=== PATIENT | male | born 1985 | race Caucasian/White ===

== ENCOUNTER 2020-02-14 16:31 | Emergency (ER) | payer OTHER, SELFPAY ==
[2020-02-14 16:43] VITALS: BP 113/70; PULSE 77; RESP 20; TEMP 36.7; O2SAT 99
--- NOTE | 2020-02-14 16:53 | ED.SKABFB ---
HPI - Skin/Abscess/Foreign Bdy General Chief complaint: Skin/Abscess/Foreign Body Stated complaint: abrasion right leg History of Present Illness HPI narrative: This is a 34 year old male that was [place] on [place] police [place] and he started to get bitten up. His leg has continue to slightly itch but erythema and swelling of leg and there were several open area. Patient has been having leg wrapped up and it has continued to get moist and boggy . Related Data Allergies Allergy/AdvReac Type Severity Reaction Status Date / Time No Known Allergies Allergy Unverified 02/14/20 16:48 Review of Systems Review of Systems: Narrative: CONSTITUTIONAL: Denies fever, chills, or sweats. EYES: Denies visual changes, redness, or discharge. ENT: Denies rhinorrhea, congestion, sore throat, or otalgia. CARDIOVASCULAR:Denies chest pain, palpitations, or edema. RESPIRATORY: Denies cough or dyspnea. GASTROINTESTINAL: Denies abdominal pain, nausea, vomiting, or diarrhea. GENITOURINARY: Denies dysuria or hematuria. SKIN: Reports rash or itching. MUSCULOSKELETAL:Denies back pain, joint pain, or myalgia. NEUROLOGIC: Denies headache, numbness, or weakness. PSYCHIATRIC:Denies anxiety or depression PMFSH Social History Social History Smoking status: Never smoker Alcohol intake: never Comments At time as signature, I have reviewed and agree with nursing past medical, social, surgical and family history. Please see nursing chart for further information. There is no relevant family history pertinent to the presenting complaint. Exam Narrative: Exam Narrative: GENERAL:Well-appearing, well-nourished, and in no acute distress. HEAD:Normocephalic, atraumatic. EYES: PERRLA and EOMI. ENT: Nares clear, no rhinorrhea or epistaxis. Mucous membranes moist. NECK: Supple. CHEST: Clear to auscultation. No respiratory distress. HEART: Regular rate and rhythm. No murmur heard. Normal peripheral pulses. ABDOMEN: Soft, nontender, nondistended, normal active bowel sounds. EXTREMITIES: Normal range of motion. No edema. SKIN: Warm, dry, erythema with edema open areas with some excoriation on the lower leg right slightly warm to touch rash. NEURO: No focal deficits. Alert and oriented x3. Course Vital Signs Vital signs: Vital Signs Temperature 98.1 F 02/14/20 16:43 Pulse Rate 77 02/14/20 16:43 Respiratory Rate 20 02/14/20 16:43 Blood Pressure 113/70 02/14/20 16:43 Pulse Oximetry 99 02/14/20 16:43 Temperature 98.1 F 02/14/20 16:43 Pulse Rate 77 02/14/20 16:43 Respiratory Rate 20 02/14/20 16:43 Blood Pressure 113/70 02/14/20 16:43 Pulse Oximetry 99 02/14/20 16:43 Discharge Plan Discharge Clinical Impression: Skin excoriation Insect bites Qualifiers: Encounter type: initial encounter Site of insect bite: lower leg Laterality: right Qualified Code(s): S80.861A - Insect bite (nonvenomous), right lower leg, initial encounter Cellulitis Qualifiers: Site of cellulitis: extremity Site of cellulitis of extremity: lower extremity Laterality: right Qualified Code(s): L03.115 - Cellulitis of right lower limb Patient Disposition: Home, Self-Care Condition: Stable Instructions: Antibiotic Form, Insect Bite or Sting (ED), Acute Rash (ED), Acute Wounds (ED) Prescriptions: New prednisone 10 mg tablet 10 mg PO DAILY 5 Days Qty: 15 RF: 0 cephalexin [Keflex] 500 mg capsule 500 mg PO Q12H 10 Days Qty: 20 RF: 0 silver sulfadiazine [Silvadene] 1 % cream 1 applic TOPICAL BID Qty: 50 RF: 0 Follow-up/Referrals: Timi Washington MD [Primary Care Provider] - Time of Disposition: 17:00 Discharge Date/Time: 02/14/20 17:08
== END 2020-02-14 17:08 | disposition home or self-care (01) ==
PROVIDERS: Emergency Provider Nurse Practitioner Family; PCP Family Medicine
DX: S80.811A Abrasion, right lower leg, initial encounter (principal); L03.115 Cellulitis of right lower limb; X58.XXXA Exposure to other specified factors, initial encounter; S80.861A Insect bite (nonvenomous), right lower leg, initial encounter; W57.XXXA Bitten or stung by nonvenomous insect and other nonvenomous arthropods, initial encounter
CPT/HCPCS: 99213; G0463

== ENCOUNTER 2020-10-24 15:59 | Inpatient (IN) | payer OTHER, SELFPAY ==
[2020-10-24] VITALS (8 sets, daily range): BP systolic 149–170; BP diastolic 72–89; PULSE 75–83; RESP 16–18; TEMP 36.4–37.2; O2SAT 99–100; BMI 32.5
--- NOTE | ~2020-10-24 | US_ITS ---
EXAMINATION: US renal BI EXAM DATE: 10/25/2020 11:44 INDICATION: Acute kidney insufficiency. TECHNIQUE: Multiple grayscale and Doppler images of the kidneys were obtained (by a technologist who performed the scan) and subsequently reviewed. There is no prior study for comparison. FINDINGS: Right kidney: There is normal contour and mildly increased echogenicity. It measures 13.0 x 6.4 x 5. 5 centimeters. There are no focal renal lesions identified. There is no hydronephrosis. Left kidney: There is normal contour and mildly increased echogenicity. It measures 12.9 x 6.9 x 6.6 centimeters. There are no focal renal lesions identified. There is no hydronephrosis. Patient voided prior to examination, bladder was not distended or evaluated. IMPRESSION: 1. Mildly increased renal cortical echogenicity could indicate early medical renal disease. 2. No hydronephrosis. Reviewed, dictated and finalized at location A. IMPRESSION: 1. Mildly increased renal cortical echogenicity could indicate early medical r enal disease. 2. No hydronephrosis.
--- NOTE | ~2020-10-24 | US_ITS ---
EXAMINATION: US abdomen limited EXAM DATE: 10/25/2020 11:45 INDICATION: Elevated liver function tests. TECHNIQUE: Multiple grayscale and Doppler images of the abdomen right upper quadrant were obtained (b y a technologist who performed the scan) and subsequently reviewed. There is no prior study for lillie collazo. FINDINGS: The pancreatic head and body are normal in appearance. The pancreatic tail is not visualized. The l iver has normal echogenicity and contour. There are no focal liver lesions identified. There is no evidence of intrahepatic biliary duct dilation. Portal venous flow was seen in the hepatopedal, nor mal direction and has normal Doppler waveform. No right-sided hydronephrosis. Common bile duct measures 3 mm, which is normal. The gallbladder wall is normal in thickness, with ex pected amount of distention. No sonographic evidence of pericholecystic fluid. There is no cholelit hiases. Technologist performing exam reports patient did not demonstrate sonographic Brooks's sign. Please note that this sign is less reliable in patients who have received pain medication. IMPRESSION: Unremarkable abdominal ultrasound exam. Reviewed, dictated and finalized at location A.
--- NOTE | ~2020-10-24 | XR_ITS ---
EXAMINATION: XR chest port-a-cath/central DATE: 11/04/2020 10:04 INDICATION: Right dialysis catheter exchange TECHNIQUE: frontal view of the chest was obtained. COMPARISON: Chest radiograph dated 10/28/2020 FINDINGS: Looks change of a prior right internal jugular central venous catheter with a new tunneled large-bore dual-lumen right internal jugular central venous catheter with distal tip at the caudal superior gisele a cava. Lungs are clear with no focal airspace opacities, pulmonary edema, pleural effusion or pneumo thorax. The cardiomediastinal silhouette is normal. Visualized bones and soft tissues are unremarkabl e. IMPRESSION: 1. New tunneled large-bore dual-lumen right internal jugular central venous catheter with distal tip in the caudal superior vena cava. 2. No acute cardiopulmonary disease. Reviewed, dictated and finalized at location A. IMPRESSION: 1. New tunneled large-bore dual-lumen right internal jugular central venous cat heter with distal tip in the caudal superior vena cava. 2. No acute cardiopulmonary disease.
--- NOTE | ~2020-10-24 | US_ITS ---
EXAMINATION: US venous doppler [facility] DATE: 10/24/2020 18:21 INDICATION: Lower limb pain and swelling TECHNIQUE: Grayscale ultrasound images without and with compression and Doppler ultrasound images of the bilateral lower extremity veins were obtained. COMPARISON: None. FINDINGS: The visualized portions of right common femoral vein, profunda (deep) femoral vein, femoral vein, pop liteal vein, posterior tibial veins, peroneal veins, gastrocnemius vein and greater saphenous vein ou tflow are patent. The visualized portions of left common femoral vein, profunda femoral vein, femoral vein, popliteal v ein, posterior tibial veins, peroneal veins, gastrocnemius vein and greater saphenous vein outflow ar e patent. IMPRESSION: 1. No deep venous thrombosis in either lower limb. Reviewed, dictated and finalized at location A.
--- NOTE | ~2020-10-24 | XR_ITS ---
EXAMINATION: XR chest 1V portable INDICATION: Temporary dialysis catheter placement TECHNIQUE: Portable AP chest at 1027 hours COMPARISON: 10/27/2020 FINDINGS: A large bore right internal jugular catheter has been inserted which ends with its tip in t he right atrium. Cardiomegaly is noted. There is a mild diffuse interstitial pattern. No pleural effu magi or pneumothorax is identified. IMPRESSION: 1. Right internal jugular dialysis catheter insertion without pneumothorax. 2. Cardiomegaly with mild pulmonary edema. Reviewed, dictated and finalized at location A.
--- NOTE | ~2020-10-24 | XR_ITS ---
EXAMINATION: XR fl guide central line place DATE: 11/04/2020 09:42 INDICATION: Right-sided dialysis catheter exchange TECHNIQUE: 2 fluoroscopic images of the upper chest were obtained during procedure performed by Dr. Celia russ. Radiologist was not present for the imaging or procedure. The amount of fluoroscopy time used during this procedure was 1.0 minutes. COMPARISON: 10/28/2020 FINDINGS: Images demonstrate interval removal of the prior right internal jugular central venous catheter and p lacement of a new large bore dual lumen tunneled right internal jugular central venous catheter with distal tip at the caudal superior vena cava. Visualized portions of the lungs are clear. IMPRESSION: 1. New large bore dual lumen tunneled right internal jugular central venous catheter with distal tip at the caudal superior vena cava. See procedure report for further detail. Reviewed, dictated and finalized at location A. IMPRESSION: 1. New large bore dual lumen tunneled right internal jugular central venous cat heter with distal tip at the caudal superior vena cava. See procedure report fo r further detail.
--- NOTE | ~2020-10-24 | XR_ITS ---
XR chest 1V portable DATE: 10/27/2020 05:56 INDICATION: Acute kidney insufficiency TECHNIQUE: Portable AP chest on 10/27/2020 at 0541 hours COMPARISON: None FINDINGS: There is mild pulmonary vascular congestion and redistribution. There is mild patchy infiltrate or atelectasis in the right lower lung. No pleural effusion or pneumo thorax. Heart size is likely within normal range considering magnification associated with AP project ion. Included skeletal structures are unremarkable. IMPRESSION: Mild pulmonary vascular congestion Mild patchy infiltrate or atelectasis in right lower lung Reviewed, dictated and finalized at location A.
[2020-10-24 16:29] LABS: Basophils Percent Auto 0.2 % (0.2-1.2); Eosinophils Absolute Auto 0.1 K/mm3 (0-0.3); Eosinophils Percent Auto 0.7 % (0-4.4); Hematocrit 38.5 % (42.0-52.0); Hemoglobin 13.9 g/dL (14.0-18.0); Immature Granulocyte Absolute 0.07 K/mm3 (0.00-0.031); Immature Granulocyte Percent A 0.5 % (0-0.5); Lymphocytes Absolute Auto 1.17 K/mm3 (0.9-3.2); Lymphocytes Percent Auto 8.6 % (18.3-44.2); Mean Corpuscular HGB Conc 36.1 g/dl (32-36); Mean Corpuscular Hemoglobin 31.2 pg (26-34); Mean Corpuscular Volume 86.3 fl (80-100); Mean Platelet Volume 9.4 fl (7.4-10.4); Monocytes Absolute Auto 1.3 K/mm3 (0.1-0.6); Monocytes Percent Auto 9.6 % (2.6-8.5); Neutrophils Absolute Auto 10.9 K/mm3 (1.3-6.7); Neutrophils Percent Auto 80.4 % (45.5-73.1); Platelet Count Result 201 k/mm3 (150-375); Red Blood Count 4.46 M/mm3 (4.6-6.20); Red Cell Distribution Width 11.8 % (11.5-14.5); White Blood Count 13.6 K/mm3 (4.5-10.0)
[2020-10-24 16:39] LABS: Add Urine Microscopic? YES; Appearance Urine Cloudy (Clear); Bacteria Urine Trace /hpf; Bilirubin Urine Negative (Negative); Blood Urine 3+ (Negative); Color Urine Amber (Yellow); Glucose Urine UA 1+ mg/dL (Negative); Ketones Urine Negative (Negative); Leukocyte Esterase Ur Trace LEU/UL (Negative); Mucus Urine Rare /lpf; Nitrate Urine Negative (Negative); Protein Urine 3+ mg/dL (Negative); Specific Grav Ur 1.017 (1.001-1.035); Squamous Epithelial Cell Urine Rare /hpf (Few); Urobilinogen Urine Negative mg/dL (<2.0)
[2020-10-24 16:43] LABS: Alkaline Phosphatase 36 U/L (38-126); Anion Gap 11 mmol/L (8-16); Bilirubin,Total 0.9 mg/dL (0.2-1.3); Blood Urea Nitrogen 57 mg/dL (9-20); Calcium 7.2 mg/dL (8.4-10.2); Carbon Dioxide 24 mmol/L (22-30); Chloride 82 mmol/L (98-107); Glucose 106 mg/dL (75-110); Potassium 4.1 mmol/L (3.4-5.0); Sodium 117 mmol/L (137-145)
[2020-10-24 16:52] LABS: Estimated CRCL calculation 17 ml/min; Estimated Glomerular Filt Rate 8
[2020-10-24 17:06] LABS: Creatine Kinase > 16000 U/L (55-170)
[2020-10-24 17:07] LABS: Alanine Aminotransferase 1150 U/L (4-50); Aspartate Amino Transferase 3557 U/L (17-59)
[2020-10-24] MEDS: LACTATED RINGERS 1,000 ML 999 ML IV CONT (17:35)
--- NOTE | 2020-10-24 18:07 | ED.GENADULT ---
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 This involved doing a lot of pretty vigorous exercise outside including basically a lot of hiking/running/obstacle courses some of which was done while carrying a heavy pack and wearing tactical gear After completing these exercises the next day he felt achy all over and had decreased amount of urine output which was very dark in color and because of that he has been drinking a lot of water and reports more of a normal color now The pain he has is still present but at this time mostly confined to his legs and he also notes swelling to the legs He tried to use some kind of yoga or kinesiology roller on the muscle pains but only got bruising along his right thigh as a result He does not have other symptoms such as nausea vomiting diarrhea or constipation although his appetite is poor, no confusion headaches or neurologic symptoms Related Data Home Medications Medication Instructions Recorded Confirmed No Home Medications 10/24/20 10/24/20 Allergies Allergy/AdvReac Type Severity Reaction Status Date / Time No Known Allergies Allergy Unverified 10/24/20 17:07 Review of Systems Review of Systems: All systems reviewed & are unremarkable except as noted in HPI and below Constitutional: Constitutional: Reports no additional constitutional complaints, Reports body ache(s), Denies chills, Reports fatigue, Denies fever(s), Denies headache(s), Reports poor appetite and Reports weakness Eyes: Eyes: Reports no additional eye complaints and Denies change in vision ENT: Denies headache(s) and Denies sore throat Cardiovascular: Cardiovascular: Denies chest pain and Denies dyspnea Respiratory: Respiratory: Denies cough and Denies dyspnea Gastrointestinal: Gastrointestinal: Denies abdominal pain, Denies diarrhea and Denies vomiting Genitourinary: Genitourinary: Reports oliguria, Denies dysuria and Denies urinary frequency Comments: Dark urine Musculoskeletal: Musculoskeletal: Reports back pain, Reports myalgias, Denies deformity, Reports arthralgias, Reports joint swelling, Reports muscle cramps, Denies numbness and Reports stiffness Integumentary/Breasts: Skin/Breast: Denies rash and Denies wounds Neurologic: Denies headache(s), Denies focal weakness and Denies numbness Psychiatric: Psychiatric: Reports no additional psychiatric complaints Endocrine: Endocrine: Reports no additional endocrine complaints Hematologic/Lymphatic: Hematologic/Lymphatic: Reports no additional hematologic/lymphatic complaints Allergic/Immunologic: Allergic/Immunologic: Reports no additional allergic/immunologic complaints [facility] Social History Social History Smoking status: Never smoker Alcohol intake: never Gender identity (if verbalized by the patient): Male Exam Const: General: cooperative, healthy appearing and no acute distress Orientation/consciousness: patient oriented x3 (alert) HENMT: Head: normal to inspection, normocephalic and atraumatic Ears: external ears normal General nose exam: no epistaxis Eyes: Conjunctivae: conjunctivae normal EOM: EOMs intact bilaterally Neck: Neck: normal visual inspection, supple and no JVD Resp: Effort & Inspection: normal respiratory effort and not labored Auscultation: clear to auscultation bilaterally, no rales, no rhonchi and no wheezes Cardio: Rate: regular rate Rhythm: regular rhythm Heart sounds: no murmurs GI: GI Palp: Yes Soft to palpation and No Tenderness to palpation present (GI) B
[2020-10-24] MEDS: SODIUM CHLORIDE 0.9% IV 1,000 ML 75 ML IV CONT (19:06)
--- NOTE | 2020-10-24 19:19 | ADMGEN ---
This patient, Tashi Fink, was admitted to Medical Room 257-01. Patient/family oriented to hospital policies and general routines including ID bracelet, bed and alarms, visiting hours, pain management, procedures, bathroom and other care routines, personal items, smoking policy, room service/diet, and visiting hours. Information on how to activate the Rapid Response Team has been discussed. Patient/Family are encouraged to report perceived risks to care and to ask questions if they do not understand what they are told or what they should do.
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
[2020-10-24 22:31] LABS: Creatinine Urine 245.4 mg/dL
[2020-10-24 23:11] LABS: Potassium Urine Random 24.5 meq/L; Sodium Urine Random 34 meq/L
[2020-10-24 23:35] LABS: INR 1.1; Prothrombin Time 14.4 Seconds (11.1-14.7)
[2020-10-24 23:37] LABS: Partial Thromboplastin Time 30.4 SECONDS (22.3-36.8)
[2020-10-25] VITALS (9 sets, daily range): BP systolic 131–141; BP diastolic 67–76; PULSE 69–91; RESP 14–16; TEMP 36.2–37.1; O2SAT 99–100
[2020-10-25 00:09] LABS: Albumin Level 3.4 g/dL (3.5-5.1); Alkaline Phosphatase 31 U/L (38-126); Anion Gap 10 mmol/L (8-16); Bilirubin,Total 0.8 mg/dL (0.2-1.3); Blood Urea Nitrogen 61 mg/dL (9-20); Calcium 6.6 mg/dL (8.4-10.2); Carbon Dioxide 21 mmol/L (22-30); Chloride 85 mmol/L (98-107); Glucose 100 mg/dL (75-110); Magnesium 2.2 mg/dL (1.6-2.3); Phosphorus 5.8 mg/dL (2.5-4.5); Sodium 116 mmol/L (137-145)
[2020-10-25 00:31] LABS: Estimated CRCL calculation 17 ml/min; Estimated Glomerular Filt Rate 8
[2020-10-25 00:43] LABS: Aspartate Amino Transferase 2897 U/L (17-59)
[2020-10-25 00:44] LABS: Alanine Aminotransferase 1018 U/L (4-50)
[2020-10-25 02:01] LABS: Creatine Kinase > 16000 U/L (55-170)
[2020-10-25] MEDS: ACETAMINOPHEN 325 MG TABLET 650 MG PO ×3 (02:11→17:37)
[2020-10-25 03:38] LABS: Eosinophil Urine None Seen % (None Seen)
[2020-10-25 05:45] LABS: Albumin Level 3.4 g/dL (3.5-5.1); Alkaline Phosphatase 32 U/L (38-126); Anion Gap 9 mmol/L (8-16); Bilirubin Indirect 0.8 mg/dL (0-1.1); Bilirubin,Total 0.7 mg/dL (0.2-1.3); Blood Urea Nitrogen 60 mg/dL (9-20); Calcium 6.2 mg/dL (8.4-10.2); Carbon Dioxide 23 mmol/L (22-30); Chloride 84 mmol/L (98-107); Glucose 100 mg/dL (75-110); Magnesium 2.2 mg/dL (1.6-2.3); Phosphorus 6.2 mg/dL (2.5-4.5); Potassium 4.1 mmol/L (3.4-5.0); Sodium 116 mmol/L (137-145)
[2020-10-25 05:53] LABS: Alanine Aminotransferase 972 U/L (4-50)
[2020-10-25 06:19] LABS: Aspartate Amino Transferase 2953 U/L (17-59); Creatine Kinase > 16000 U/L (55-170)
[2020-10-25 06:26] LABS: Hepatitis B Surface Antigen Negative (Negative)
[2020-10-25 06:32] LABS: HAV RESULT Negative (Negative); Hepatitis B Core IgM Result Negative (Negative)
[2020-10-25 06:36] LABS: Estimated CRCL calculation 15 ml/min; Estimated Glomerular Filt Rate 7
[2020-10-25 06:43] LABS: Hepatitis C Virus Antibody Negative (Negative)
[2020-10-25] MEDS: SODIUM CHLORIDE 0.9% IV 1,000 ML 75 ML IV CONT ×2 (06:56→07:50)
[2020-10-25] MEDS: FUROSEMIDE INJ 40 MG/4 ML VIAL IV PUSH (06:57)
--- NOTE | 2020-10-25 08:00 | PC.NURSE ---
Teri PONCE called specifications writer to reports she did call the critical sodium level to Dr. Horner this Am, and she received the order for lasix IV Push. Kyler Addison RN
[2020-10-25 10:50] LABS: Hematocrit 32.8 % (42.0-52.0); Hemoglobin 12.2 g/dL (14.0-18.0)
[2020-10-25 11:04] LABS: Anion Gap 8 mmol/L (8-16); Blood Urea Nitrogen 66 mg/dL (9-20); Calcium 6.1 mg/dL (8.4-10.2); Carbon Dioxide 22 mmol/L (22-30); Chloride 85 mmol/L (98-107); Glucose 96 mg/dL (75-110); Potassium 4.4 mmol/L (3.4-5.0); Sodium 115 mmol/L (137-145)
[2020-10-25 11:09] LABS: Estimated CRCL calculation 15 ml/min; Estimated Glomerular Filt Rate 7
--- NOTE | 2020-10-25 12:11 | PM.CNNEP ---
Assessment and Plan Assessment and plan (1) Acute kidney failure: Code(s): N17.9 - Acute kidney failure, unspecified Status: Acute Assessment and Plan: presumably due to rhabdomyolsis along with prerenal factors renal ultrasound pending urine electrolytes suggest pre-renal azotemia no critical electrolytes (aside from #2) but will need to follow K+, Ca++, and phosphorus closely - surprising that K+, Ca++, and phos not worse continue normal saline IVF with ongoing attempts at force diuresis follow serial labs and UOP (2) Hyponatremia: Code(s): E87.1 - Hypo-osmolality and hyponatremia Status: Acute Assessment and Plan: likely precipitated by excessive water intake complicated now by SHARI/ARF associated with oliguria no neurological sequelae at this time follow repeat labs could consider 3% saline but hesitant to do with SHARI/oliguria which would put him at risk for volume overload follow serial sodium - stable but no significant improvement noted (3) Rhabdomyolysis: Code(s): M62.82 - Rhabdomyolysis Status: Acute Assessment and Plan: as noted by CPK levels follow trend continue saline IVF for now could use bicarb fluids - however, may not get adequate resuscitation - no evidence of acidosis at this time - may worsen his calcium level and predispose him to hypokalemia follow UOP (4) Elevated LFTs: Code(s): R79.89 - Other specified abnormal findings of blood chemistry Status: Acute Assessment and Plan: presumably related to #3 is it possible his BP dropped as well leading to this and #1(?) hepatitis studies noted follow trend follow-up on abdominal ultrasound Long and extensive discussion (> 20 minutes) with patient and at bedside regarding above issues and plan care. Discussed also the possible need for renal replacement therapy if conservative therapy fail to improve his kidney function or if he runs into problems with hyperkalemia, hypocalcemia, fluid overload, uremia...etc. They appeared to voice understanding. Will continue to follow. History of Present Illness Reason for Consult Consult date: 10/25/20 Reason for consult: acute renal failure and hyponatremia Chief Complaint Chief complaint: rhaddomyolysis, acute kidney failure, hyponatremia History of Present Illness Narrative: The patient is a pleasant 35-year-old Caucasianb male with no significant past medical history who presented to the [facility] emergency room yesterday with concerns that he may be dehydrated. 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 He apparently tried to stay hydrated during this training but noted significant muscle soreness at the end of each day during this period of time. His training was completed by Wednesday evening and by the next morning he was even more sore than he was previously localized to his muscles in his quadriceps and lower abdomen. He tried conservative therapy to help with the soreness but this did not really seem to help all that much. He then noticed that his urine output seem to be decreased and was very dark brown almost like Coca[employer]. He also noted some mild nausea and some bouts of emesis at that time as well. This of course reduced his oral intake although he still try to stay hydrated by drinking water but had difficulty doing so. Given these symptoms and events, he came to the ER for further evaluation and therapy. Workup and evaluation emergency room demonstrated the patient to be hemodynamically stable but routine blood test demonstrated a significant decline in his renal function associated with clear evidence of rhabdomyolysis with a CPK greater than
--- NOTE | 2020-10-25 13:05 | PM.IMPN ---
Progress Note: A&P Assessment and Plan (1) Acute kidney failure: Code(s): N17.9 - Acute kidney failure, unspecified Status: Acute Assessment and Plan: Creatinine elevated at 7.5 at presentation with increase up to 8.8 today. Etiology unclear at this time. Unclear if hypovolemic/hypotensive episode vs rhabdomyolysis. Renal US showed mildly increased renal cortical echogenicity without evidence of hydronephrosis Nephrology has been consulted and input is appreciated. Case has been discussed Dr. Barry. Continue IV fluids Monitor renal function closely. Renally dose medications and avoid nephrotoxins. (2) Rhabdomyolysis: Code(s): M62.82 - Rhabdomyolysis Status: Acute Assessment and Plan: Secondary to aggressive exertion and heat exposure beginning on 10/21/20. CK is >84693. UA with 3+ blood. LFTs are elevated. He was given 40 mg Lasix this morning with no urine output. Continue IV fluids with caution in regards to hyponatremia. Nephrology is following and managing IV fluids. Bumex 1.5 mg one time Trend CK. Monitor urine output closely (3) Elevated LFTs: Code(s): R79.89 - Other specified abnormal findings of blood chemistry Status: Acute Assessment and Plan: LFTs are significantly elevated upon presentation with only minimal improvement today. Unclear etiology at this time but suspected due to rhabdo. Abdominal ultrasound showed normal liver and gallbladder. Continue to monitor LFTs. Suspect improvement with treatment of above. (4) Hyponatremia: Code(s): E87.1 - Hypo-osmolality and hyponatremia Status: Acute Assessment and Plan: Sodium was decreased at presentation at 117 with slight decline to 115 today. This may be due to renal failure vs excess free water intake as patient was reportedly drinking 4-5 gallons of water over the past few days at home. Monitor sodium q4h Continue normal saline Appreciate nephrology recommendations. Monitor on telemetry (5) Oliguria: Code(s): R34 - Anuria and oliguria Status: Acute Assessment and Plan: He has had minimal to no urine output today despite Lasix. Reportedly only a few drops. Bladder scan performed today with no evidence of urinary retention. Bladder was decompressed on review of renal US. This is likely due to renal failure Continue IV fluids Bumex 1.5 mg IV one time Subjective Date/time seen: 10/25/20 13:05 Interval history: Date of service: 10/25/20 Tashi Fink is a healthy 35 year old male who is seen in follow up for acute kidney failure, hyponatremia, and rhabdomyolysis. He is feeling fairly well. He has no complaints at this time. He has a little soreness in his muscles, especially his quads, but this has improved significantly. He denies nausea or vomiting. He has been NPO this morning and is anything to eat or drink. He has not urinated at all today. The last time he urinated was yesterday and reported urine was yellow at that time. He is having some hiccups. He had a bowel movement today. Denies shortness breath, cough, chest pain dizziness, lightheadedness. Denies muscle cramping. His was present during interview and exam. I had a long discussion with the patient and his and answered all of their questions. Review of Systems Review of Systems: All systems reviewed & are unremarkable except as noted in HPI and below Exam Narrative: Exam Narrative: Mr. Fink is a well-nourished, healthy-appearing 35-year-old male who is lying semi recumbent in bed. He appears comfortable and is in NARD. Neuro: awake, alert and oriented x4, speech clear, no focal neuro deficits noted HEENMT: normocephalic, atraumatic, EOMI, sclerae anicteric, moist oral mucosa, tongue midline, nares patent Neck: supple, no lymphadenopathy Respiratory: clear to auscultation bilaterally, nonlabored breathing Cardio: regular rate, regular rhyt
[2020-10-25] MEDS: BUMETANIDE INJ 1 MG/4 ML VIAL 1.5 MG IV PUSH (13:09)
[2020-10-25 16:18] LABS: Anion Gap 10 mmol/L (8-16); Blood Urea Nitrogen 70 mg/dL (9-20); Calcium 6.1 mg/dL (8.4-10.2); Carbon Dioxide 22 mmol/L (22-30); Chloride 84 mmol/L (98-107); Glucose 107 mg/dL (75-110); Potassium 4.3 mmol/L (3.4-5.0); Sodium 116 mmol/L (137-145)
[2020-10-25 16:34] LABS: Estimated CRCL calculation 14 ml/min; Estimated Glomerular Filt Rate 6
[2020-10-25] MEDS: CALCIUM GLUC 2,000 MG/NS 100ML 2,000 MG/100 ML BAG 100 MG IVPB (17:31)
[2020-10-25] MEDS: SODIUM CHLORIDE 0.9% IV 1,000 ML 100 ML IV CONT (19:09)
[2020-10-25 20:01] LABS: Anion Gap 10 mmol/L (8-16); Blood Urea Nitrogen 73 mg/dL (9-20); Calcium 6.5 mg/dL (8.4-10.2); Carbon Dioxide 23 mmol/L (22-30); Chloride 83 mmol/L (98-107); Glucose 98 mg/dL (75-110); Potassium 4.2 mmol/L (3.4-5.0); Sodium 116 mmol/L (137-145)
[2020-10-25 20:06] LABS: Estimated CRCL calculation 13 ml/min; Estimated Glomerular Filt Rate 6
[2020-10-25 22:57] LABS: Sodium 114 mmol/L (137-145)
[2020-10-25] MEDS: BUMETANIDE INJ 1 MG/4 ML VIAL 2 MG IV PUSH (23:48)
[2020-10-26] VITALS (10 sets, daily range): BP systolic 138–166; BP diastolic 69–91; PULSE 63–84; RESP 16–18; TEMP 36.3–37.1; O2SAT 97–100
[2020-10-26 00:32] LABS: Anion Gap 11 mmol/L (8-16); Blood Urea Nitrogen 72 mg/dL (9-20); Calcium 6.1 mg/dL (8.4-10.2); Carbon Dioxide 20 mmol/L (22-30); Chloride 84 mmol/L (98-107); Glucose 99 mg/dL (75-110); Potassium 4.1 mmol/L (3.4-5.0); Sodium 115 mmol/L (137-145)
[2020-10-26 00:42] LABS: Estimated CRCL calculation 12 ml/min; Estimated Glomerular Filt Rate 5
[2020-10-26] MEDS: SODIUM CHLORIDE 0.9% IV 1,000 ML 100 ML IV CONT (03:28)
[2020-10-26] MEDS: ACETAMINOPHEN 325 MG TABLET 650 MG PO ×3 (03:31→22:16)
[2020-10-26 05:44] LABS: Hematocrit 33.8 % (42.0-52.0); Hemoglobin 12.2 g/dL (14.0-18.0)
[2020-10-26 06:06] LABS: Albumin Level 3.4 g/dL (3.5-5.1); Alkaline Phosphatase 33 U/L (38-126); Anion Gap 11 mmol/L (8-16); Bilirubin Indirect 0.4 mg/dL (0-1.1); Bilirubin,Total 0.4 mg/dL (0.2-1.3); Blood Urea Nitrogen 76 mg/dL (9-20); Calcium 6.3 mg/dL (8.4-10.2); Carbon Dioxide 21 mmol/L (22-30); Chloride 85 mmol/L (98-107); Estimated CRCL calculation 12 ml/min; Estimated Glomerular Filt Rate 5; Glucose 103 mg/dL (75-110); Potassium 4.4 mmol/L (3.4-5.0); Sodium 117 mmol/L (137-145)
[2020-10-26] MEDS: CALCIUM GLUC 2,000 MG/NS 100ML 2,000 MG/100 ML BAG 100 MG IVPB (07:05)
[2020-10-26 07:28] LABS: Aspartate Amino Transferase 2020 U/L (17-59)
[2020-10-26 07:30] LABS: Alanine Aminotransferase 919 U/L (4-50)
[2020-10-26 07:42] LABS: Creatine Kinase > 16000 U/L (55-170)
[2020-10-26 09:56] LABS: Albumin Level 3.3 g/dL (3.5-5.1); Anion Gap 13 mmol/L (8-16); Blood Urea Nitrogen 76 mg/dL (9-20); Calcium 6.6 mg/dL (8.4-10.2); Carbon Dioxide 17 mmol/L (22-30); Chloride 85 mmol/L (98-107); Glucose 108 mg/dL (75-110); Phosphorus 6.5 mg/dL (2.5-4.5); Potassium 4.6 mmol/L (3.4-5.0); Sodium 115 mmol/L (137-145)
[2020-10-26 10:01] LABS: Estimated CRCL calculation 12 ml/min; Estimated Glomerular Filt Rate 5
--- NOTE | 2020-10-26 10:39 | P.PNNP_ITS ---
Progress Note: A&P Assessment and Plan (1) Acute kidney failure: Code(s): N17.9 - Acute kidney failure, unspecified Status: Acute Assessment and Plan: * presumably due to rhabdomyolsis along with prerenal factors * renal ultrasound noted * urine electrolytes suggest pre-renal azotemia * follow K+, Ca++, and phosphorus closely - somewhat surprising he has not had issues with hyperkalemia or severe hyperphosphatemia * continue normal saline IVF with ongoing attempts at force diuresis * as recent labs with CO2 dropping, may consider switch to bicarb fluids * given lack of improvement, check serologies to ensure no concurrent pathology present * he remains at high risk for the need for renal replacement therapy/dialysis * follow serial labs and UOP (2) Hyponatremia: Code(s): E87.1 - Hypo-osmolality and hyponatremia Status: Acute Assessment and Plan: * likely precipitated by excessive water intake [employer] * complicated now by SHARI/ARF associated with oliguria * no neurological sequelae at this time * follow repeat labs * could consider 3% saline but hesitant to do with SHARI/oliguria which would put him at risk for volume overload * follow serial sodium - stable but no significant improvement noted (3) Rhabdomyolysis: Code(s): M62.82 - Rhabdomyolysis Status: Acute Assessment and Plan: * as noted by CPK levels * follow trend * continue saline IVF for now * consider switch to bicarb fluids (see #1) * follow UOP (4) Elevated LFTs: Code(s): R79.89 - Other specified abnormal findings of blood chemistry Status: Acute Assessment and Plan: * presumably related to #3 * is it possible his BP dropped as well leading to this and #1(?) * hepatitis studies noted * follow trend Will continue to follow. Subjective Date/time seen: 10/26/20 10:39 No apparent distress noted at the time of my visit; sodium remain low but stable; still with poor urine output despite IV diuretic therapy; no nausea, vomiting or shortness of breath but has noted increased hiccups. Exam Narrative: Exam Narrative: General: WD/WN male in NAD Heart: normal S1 and S2; no rub Lungs: clear to auscultation Abdomen: soft, nontender, nondistended, positive bowel sounds Extremities: no cyanosis or clubbing; trace edema Skin: warm and dry Objective Data Vital Signs Vital Signs: Vital Signs Temp Pulse Resp BP Pulse Ox 10/26/20 10:00 36.3 C L 72 18 148/76 H 99 10/26/20 08:27 16 99 10/26/20 08:00 73 10/26/20 04:00 36.3 C L 63 16 138/69 98 10/26/20 00:00 36.3 C L 76 18 154/76 H 98 10/25/20 20:00 36.3 C L 71 16 140/67 100 10/25/20 18:00 36.2 C L 74 16 137/75 100 10/25/20 16:00 81 10/25/20 14:00 36.3 C L 73 14 137/74 100 10/25/20 12:00 69 Intake/Output Intake/Output: Intake & Output 10/23/20 10/24/20 10/25/20 10/26/20 23:59 23:59 23:59 23:59 Intake Total 1000 3350 1480 Output Total 330 100 Balance 1000 3020 1380 Meds/Results Medications: Active Medications Generic Name Dose Route Start Last Admin Trade Name Kalina PRN Reason Stop Dose Admin Acetaminophen 650 mg 10/24/20 18:08 10/26/20 03:31 Acetaminophen 325 Mg Tablet PO 650 m
--- NOTE | 2020-10-26 10:39 | PM.PNNEP ---
Progress Note: A&P Assessment and Plan (1) Acute kidney failure: Code(s): N17.9 - Acute kidney failure, unspecified Status: Acute Assessment and Plan: presumably due to rhabdomyolsis along with prerenal factors renal ultrasound noted urine electrolytes suggest pre-renal azotemia follow K+, Ca++, and phosphorus closely - somewhat surprising he has not had issues with hyperkalemia or severe hyperphosphatemia continue normal saline IVF with ongoing attempts at force diuresis as recent labs with CO2 dropping, may consider switch to bicarb fluids given lack of improvement, check serologies to ensure no concurrent pathology present he remains at high risk for the need for renal replacement therapy/dialysis follow serial labs and UOP (2) Hyponatremia: Code(s): E87.1 - Hypo-osmolality and hyponatremia Status: Acute Assessment and Plan: likely precipitated by excessive water intake [employer] complicated now by SHARI/ARF associated with oliguria no neurological sequelae at this time follow repeat labs could consider 3% saline but hesitant to do with SHARI/oliguria which would put him at risk for volume overload follow serial sodium - stable but no significant improvement noted (3) Rhabdomyolysis: Code(s): M62.82 - Rhabdomyolysis Status: Acute Assessment and Plan: as noted by CPK levels follow trend continue saline IVF for now consider switch to bicarb fluids (see #1) follow UOP (4) Elevated LFTs: Code(s): R79.89 - Other specified abnormal findings of blood chemistry Status: Acute Assessment and Plan: presumably related to #3 is it possible his BP dropped as well leading to this and #1(?) hepatitis studies noted follow trend Will continue to follow. Subjective Date/time seen: 10/26/20 10:39 No apparent distress noted at the time of my visit; sodium remain low but stable; still with poor urine output despite IV diuretic therapy; no nausea, vomiting or shortness of breath but has noted increased hiccups. Exam Narrative: Exam Narrative: General: WD/WN male in NAD Heart: normal S1 and S2; no rub Lungs: clear to auscultation Abdomen: soft, nontender, nondistended, positive bowel sounds Extremities: no cyanosis or clubbing; trace edema Skin: warm and dry Objective Data Vital Signs Vital Signs: Vital Signs Temp Pulse Resp BP Pulse Ox 10/26/20 10:00 36.3 C L 72 18 148/76 H 99 10/26/20 08:27 16 99 10/26/20 08:00 73 10/26/20 04:00 36.3 C L 63 16 138/69 98 10/26/20 00:00 36.3 C L 76 18 154/76 H 98 10/25/20 20:00 36.3 C L 71 16 140/67 100 10/25/20 18:00 36.2 C L 74 16 137/75 100 10/25/20 16:00 81 10/25/20 14:00 36.3 C L 73 14 137/74 100 10/25/20 12:00 69 Intake/Output Intake/Output: Intake & Output 10/23/20 10/24/20 10/25/20 10/26/20 23:59 23:59 23:59 23:59 Intake Total 1000 3350 1480 Output Total 330 100 Balance 1000 3020 1380 Meds/Results Medications: Active Medications Generic Name Dose Route Start Last Admin Trade Name Freq PRN Reason Stop Dose Admin Acetaminophen 650 mg 10/24/20 18:08 10/26/20 03:31 Acetaminophen 325 Mg Tablet PO 650 mg Q4H PRN Administration Mild Pain (1-3) or Fever Hydrocodone Bitart/Acetaminophen 2 tab 10/24/20 18:08 Hydrocodone/Acetaminophen (*Crx) 5-325 Mg Tablet PO Q4H PRN Severe Pain Sodium Chloride 1,000 mls @ 125 mls/hr 10/24/20 18:10 10/26/20 04:55 Normal Saline Iv IV CONT 125 mls/hr .Q8H NINO Infusion Ondansetron HCl 4 mg 10/24/20 18:08 Ondansetron Inj 4 Mg/2 Ml Vial IV PUSH Q4H PRN Nausea Radiology Results: ITS Impressions Venous Doppler Study 10/24/20 18:21 IMPRESSION: 1. No deep venous thrombosis in either lower limb. Renal Ultrasound 10/25/20 12:30 IMPRESSION: 1. Mildly increased renal cortical echogenicity coul
[2020-10-26] MEDS: BUMETANIDE INJ 1 MG/4 ML VIAL 1.5 MG IV PUSH (11:27)
[2020-10-26] MEDS: SODIUM CHLORIDE 0.9% IV 1,000 ML 125 ML IV CONT (12:18)
--- NOTE | 2020-10-26 12:55 | PM.IMPN ---
Progress Note: A&P Assessment and Plan (1) Acute kidney failure: Code(s): N17.9 - Acute kidney failure, unspecified Status: Acute Assessment and Plan: Creatinine elevated at 7.5 at presentation with increase up to 11.2 today. Likely due to combination of hypovolemic episode and rhabdomyolysis. Renal US showed mildly increased renal cortical echogenicity without evidence of hydronephrosis. Urine electrolytes consistent with pre-renal etiology. Nephrology has been consulted and input is appreciated. Case has been discussed Dr. Barry. Continue normal saline at 125 ml/hr Monitor renal function and electrolytes closely. (2) Rhabdomyolysis: Code(s): M62.82 - Rhabdomyolysis Status: Acute Assessment and Plan: Secondary to aggressive exertion and heat exposure beginning on 10/21/20. [place] >[address]. UA with 3+ blood. LFTs are elevated. Continue IV fluids with caution in regards to hyponatremia. Nephrology is following and managing IV fluids. Received Bumex 1.5 mg IV to attempt diuresis Trend CK. Monitor urine output closely (3) Elevated LFTs: Code(s): R79.89 - Other specified abnormal findings of blood chemistry Status: Acute Assessment and Plan: LFTs are significantly elevated upon presentation with slow improvement. Bilirubin wnl. Unclear etiology at this time but suspected due to rhabdo. Abdominal ultrasound showed normal liver and gallbladder. Hepatitis panel negative. Continue to monitor LFTs. Suspect improvement with treatment of above. (4) Hyponatremia: Code(s): E87.1 - Hypo-osmolality and hyponatremia Status: Acute Assessment and Plan: Remaining consistent at 115-117. This is likely due to excess free water intake complicated by acute renal failure. He has no neurologic symptoms. Telemetry reviewed. Monitor sodium q4h Continue normal saline Appreciate nephrology recommendations. May consider sodium chloride tabs in addition to IV fluids. Monitor on telemetry (5) Oliguria: Code(s): R34 - Anuria and oliguria Status: Acute Assessment and Plan: Bladder scan performed with no evidence of urinary retention. Bladder was decompressed on review of renal US. This is likely due to renal failure. Total of 430 cc urine output since admission and he is 6 L fluid positive. Continue IV fluids and Bumex to precipitate urine output Monitor intake and output closely. Subjective Date/time seen: 10/26/20 12:55 Interval history: Date of service: 10/26/20 Tashi Fink is a healthy 35 year old male who is seen in follow up for acute kidney failure, hyponatremia, and rhabdomyolysis. He is feeling fairly well. He complains of muscle soreness/tightness in his thighs, his mid abdomen, and his paraspinal muscles. He notes this has improved with heat. He is able to ambulate without difficulty. He has no neurologic symptoms including confusion, numbness, tingling, lethargy, or headache. He has been tolerating his diet. Denies nausea, vomiting, abdominal pain, or cramping. He complains of hiccups. He has had a small amount of urine output today, though increased from yesterday. He states his urine is a dark yellow and denies foamy urine. He denies shortness of breath, cough, chest pain, or palpitations. Review of Systems Review of Systems: All systems reviewed & are unremarkable except as noted in HPI and below Exam Narrative: Exam Narrative: Mr. Fink is a well-nourished, healthy-appearing 35-year-old male who is lying semi recumbent in bed. He appears comfortable and is in NARD. Neuro: awake, alert and oriented x4, speech clear, no focal neuro deficits noted HEENMT: normocephalic, atraumatic, EOMI, sclerae anicteric, moist oral mucosa, tongue midline, nares patent Neck: supple, no lymphadenopathy Respiratory: clear to auscultation bilaterally, nonlabored breathing Cardio: regular rate, regular rhythm w
[2020-10-26 14:16] LABS: Albumin Level 3.2 g/dL (3.5-5.1); Anion Gap 10 mmol/L (8-16); Blood Urea Nitrogen 77 mg/dL (9-20); Calcium 6.3 mg/dL (8.4-10.2); Carbon Dioxide 19 mmol/L (22-30); Chloride 86 mmol/L (98-107); Glucose 105 mg/dL (75-110); Phosphorus 6.7 mg/dL (2.5-4.5); Potassium 4.6 mmol/L (3.4-5.0); Sodium 115 mmol/L (137-145)
[2020-10-26 14:29] LABS: Estimated CRCL calculation 11 ml/min; Estimated Glomerular Filt Rate 5
[2020-10-26] MEDS: FAMOTIDINE 20 MG TABLET PO ×2 (15:06→20:10)
[2020-10-26 18:09] LABS: Albumin Level 3.2 g/dL (3.5-5.1); Anion Gap 12 mmol/L (8-16); Blood Urea Nitrogen 81 mg/dL (9-20); Calcium 6.3 mg/dL (8.4-10.2); Carbon Dioxide 19 mmol/L (22-30); Chloride 84 mmol/L (98-107); Glucose 104 mg/dL (75-110); Phosphorus 6.5 mg/dL (2.5-4.5); Sodium 115 mmol/L (137-145)
[2020-10-26 18:17] LABS: Estimated CRCL calculation 11 ml/min; Estimated Glomerular Filt Rate 5
[2020-10-26 18:27] LABS: Potassium 4.7 mmol/L (3.4-5.0)
[2020-10-26] MEDS: SODIUM BICARBONATE 8.4% 75 MEQ in SODIUM CHLORIDE 0.45% 1,000 ML 75 ML IV CONT (19:02)
[2020-10-26] MEDS: BUMETANIDE INJ 2.5 MG/10 ML VIAL 1.5 MG IV PUSH (20:10)
[2020-10-26 22:33] LABS: Albumin Level 3.3 g/dL (3.5-5.1); Anion Gap 12 mmol/L (8-16); Blood Urea Nitrogen 81 mg/dL (9-20); Calcium 6.2 mg/dL (8.4-10.2); Carbon Dioxide 18 mmol/L (22-30); Chloride 85 mmol/L (98-107); Glucose 98 mg/dL (75-110); Phosphorus 6.7 mg/dL (2.5-4.5); Potassium 4.9 mmol/L (3.4-5.0); Sodium 115 mmol/L (137-145)
[2020-10-26 22:37] LABS: Estimated CRCL calculation 11 ml/min; Estimated Glomerular Filt Rate 5
[2020-10-27] VITALS (12 sets, daily range): BP systolic 135–160; BP diastolic 69–91; PULSE 67–81; RESP 16–21; TEMP 36.6–36.9; O2SAT 96–100
[2020-10-27 05:01] LABS: Myoglobin, Urine >8750 mcg/L (<28)
[2020-10-27 05:31] LABS: Add Urine Microscopic? YES; Appearance Urine Cloudy (Clear); Bacteria Urine Trace /hpf; Bilirubin Urine Negative (Negative); Blood Urine 3+ (Negative); Color Urine Yellow (Yellow); Glucose Urine UA 1+ mg/dL (Negative); Ketones Urine Negative (Negative); Leukocyte Esterase Ur Negative LEU/UL (Negative); Mucus Urine Rare /lpf; Nitrate Urine Negative (Negative); Protein Urine 3+ mg/dL (Negative); Specific Grav Ur 1.015 (1.001-1.035); Urobilinogen Urine Negative mg/dL (<2.0)
[2020-10-27 05:34] LABS: Hematocrit 33.3 % (42.0-52.0); Hemoglobin 12.1 g/dL (14.0-18.0)
[2020-10-27 05:56] LABS: Alanine Aminotransferase 707 U/L (4-50); Albumin Level 3.3 g/dL (3.5-5.1); Alkaline Phosphatase 34 U/L (38-126); Anion Gap 13 mmol/L (8-16); Bilirubin Indirect 0.4 mg/dL (0-1.1); Bilirubin,Total 0.4 mg/dL (0.2-1.3); Blood Urea Nitrogen 85 mg/dL (9-20); Calcium 6.4 mg/dL (8.4-10.2); Carbon Dioxide 18 mmol/L (22-30); Chloride 84 mmol/L (98-107); Complement C3 67 mg/dL (88-165); Glucose 96 mg/dL (75-110); Phosphorus 6.9 mg/dL (2.5-4.5); Potassium 4.5 mmol/L (3.4-5.0); Sodium 115 mmol/L (137-145)
[2020-10-27 06:03] LABS: Aspartate Amino Transferase 1219 U/L (17-59)
[2020-10-27 06:16] LABS: Estimated CRCL calculation 11 ml/min; Estimated Glomerular Filt Rate 5
[2020-10-27 06:23] LABS: Creatine Kinase > 16000 U/L (55-170)
[2020-10-27 07:17] LABS: Prothrombin Time 14.2 Seconds (11.1-14.7)
[2020-10-27] MEDS: SODIUM CHLORIDE 3% 500 ML 120 ML IVPB (07:58)
[2020-10-27] MEDS: FAMOTIDINE 20 MG TABLET PO ×2 (08:09→21:46)
[2020-10-27 09:35] LABS: Sodium 114 mmol/L (137-145)
[2020-10-27 12:39] LABS: Anion Gap 12 mmol/L (8-16); Blood Urea Nitrogen 89 mg/dL (9-20); Calcium 6.5 mg/dL (8.4-10.2); Carbon Dioxide 19 mmol/L (22-30); Chloride 85 mmol/L (98-107); Glucose 99 mg/dL (75-110); Sodium 116 mmol/L (137-145)
[2020-10-27 12:51] LABS: Estimated CRCL calculation 10 ml/min; Estimated Glomerular Filt Rate 4
--- NOTE | 2020-10-27 13:11 | PM.PNNEP ---
Progress Note: A&P Assessment and Plan (1) Acute kidney failure: Code(s): N17.9 - Acute kidney failure, unspecified Status: Acute Assessment and Plan: presumably due to rhabdomyolsis along with prerenal factors renal ultrasound noted urine electrolytes suggest pre-renal azotemia follow K+, Ca++, and phosphorus closely (relatively stable) IVFs with ongoing attempts at force diuresis have not been successful holding further IVFs until #2 optimized serologies pending (to ensure no concurrent pathology present) given his rising BUN and creatninine, he remains at high risk for the need for renal replacement therapy/dialysis issues with rising BP noted as well follow serial labs and UOP see discussion below... (2) Hyponatremia: Code(s): E87.1 - Hypo-osmolality and hyponatremia Status: Acute Assessment and Plan: likely precipitated by excessive water intake prior to admission now complicated by SHARI/ARF associated with oliguria no neurological sequelae at this time given lack of improvement if not worsening trend, s/p 3% saline with some improvement noted however, with SHARI/oliguria, he is at risk for volume overload -- CXR this AM already notes some mild pulmonary vascular congestion follow serial sodium - and consider further 3% saline infusion to further optimize sodium - goal of therapy would be a change of 4 - 6meq/L (and no more than 10meq/L) in a 24hr period of time (3) Rhabdomyolysis: Code(s): M62.82 - Rhabdomyolysis Status: Acute Assessment and Plan: as noted by CPK levels follow trend had been on saline and then bicarb IVFs -- (almost 9L positive since admission) concern is CXR with evidence of mild pulmonary vascular congestion follow UOP (4) Elevated LFTs: Code(s): R79.89 - Other specified abnormal findings of blood chemistry Status: Acute Assessment and Plan: presumably related to #3 is it possible his BP dropped as well leading to this and #1(?) hepatitis studies noted follow trend Given his rising BUN and creatinine in association with questionable uremic symptoms and persistent oliguria along with pulmonary vascular congestion on CXR, I think we need to start dialysis. My hope would be this will provide clearance of the uremic toxins (and maybe some of the CPK) and provide more stability in his electrolytes and acid base status as well. Long and extensive discussion (> 20 minutes) with patient and his at bedside regarding what dialysis is, the procedure, need for dialysis catheter placemment, risks...etc. They are willing to proceed. Will consult Surgery for placement of temporary HD catheter tomorrow with dialysis to follow once HD catheter in place. Will continue to follow. Subjective Date/time seen: 10/27/20 13:11 Despite aggressive IVF hydration and use of IV diuretics, no significant change in urine output or hyponatremia and renal function continues to deteriorate; s/p 3% saline earlier today with some improvement in sodium level; CPK remains elevated; no apparent distress although reports increased hiccups/beltching (uremia?). Exam Narrative: Exam Narrative: General: WD/WN male in NAD Heart: normal S1 and S2; no rub Lungs: clear to auscultation Abdomen: soft, nontender, nondistended, positive bowel sounds Extremities: no cyanosis or clubbing; trace edema Skin: warm and intact Objective Data Vital Signs Vital Signs: Vital Signs Temp Pulse Resp BP Pulse Ox 10/27/20 12:00 70 10/27/20 10:00 36.8 C 72 18 160/91 H 100 10/27/20 08:09 16 98 10/27/20 08:00 72 10/27/20 04:00 36.6 C 67 16 154/80 H 98 10/27/20 00:58 36.6 C 71 16 156/75 H 96 10/27/20 00:00 36.6 C 81 16 156/75 H 96 10/26/20 20:00 37.1 C 74 16 147/74 H 100 10/26/20 18:00 37.1 C 74 18 157/79 H 97 10/26/20 16:00 78 Intake/Output Intake/Output: Intake & O
--- NOTE | 2020-10-27 13:11 | P.PNNP_ITS ---
Progress Note: A&P Assessment and Plan (1) Acute kidney failure: Code(s): N17.9 - Acute kidney failure, unspecified Status: Acute Assessment and Plan: * presumably due to rhabdomyolsis along with prerenal factors * renal ultrasound noted * urine electrolytes suggest pre-renal azotemia * follow K+, Ca++, and phosphorus closely (relatively stable) * IVFs with ongoing attempts at force diuresis have not been successful * holding further IVFs until #2 optimized * serologies pending (to ensure no concurrent pathology present) * given his rising BUN and creatninine, he remains at high risk for the need for renal replacement therapy/dialysis * issues with rising BP noted as well * follow serial labs and UOP * see discussion below... (2) Hyponatremia: Code(s): E87.1 - Hypo-osmolality and hyponatremia Status: Acute Assessment and Plan: * likely precipitated by excessive water intake prior to admission * now complicated by SHARI/ARF associated with oliguria * no neurological sequelae at this time * given lack of improvement if not worsening trend, s/p 3% saline with some improvement noted * however, with SHARI/oliguria, he is at risk for volume overload -- CXR this AM already notes some mild pulmonary vascular congestion * follow serial sodium - and consider further 3% saline infusion to further optimize sodium - goal of therapy would be a change of 4 - 6meq/L (and no more than 10meq/L) in a 24hr period of time (3) Rhabdomyolysis: Code(s): M62.82 - Rhabdomyolysis Status: Acute Assessment and Plan: * as noted by CPK levels * follow trend * had been on saline and then bicarb IVFs -- (almost 9L positive since admission) * concern is CXR with evidence of mild pulmonary vascular congestion * follow UOP (4) Elevated LFTs: Code(s): R79.89 - Other specified abnormal findings of blood chemistry Status: Acute Assessment and Plan: * presumably related to #3 * is it possible his BP dropped as well leading to this and #1(?) * hepatitis studies noted * follow trend Given his rising BUN and creatinine in association with questionable uremic symptoms and persistent oliguria along with pulmonary vascular congestion on CXR, I think we need to start dialysis. My hope would be this will provide clearance of the uremic toxins (and maybe some of the CPK) and provide more stability in his electrolytes and acid base status as well. Long and extensive discussion (> 20 minutes) with patient and his at bedside regarding what dialysis is, the procedure, need for dialysis catheter placemment, risks...etc. They are willing to proceed. Will consult Surgery for placement of temporary HD catheter tomorrow with dialysis to follow once HD catheter in place. Will continue to follow. Subjective Date/time seen: 10/27/20 13:11 Despite aggressive IVF hydration and use of IV diuretics, no significant change in urine output or hyponatremia and renal function continues to deteriorate; s/p 3% saline earlier today with some improvement in sodium level; CPK remains elevated; no apparent distress although reports increased hiccups/beltching (uremia?). Exam Narrative: Exam Narrative: General: WD/WN male in NAD Heart: normal S1 and S2; no rub Lungs: clear to auscultation Abdomen: soft, nontender, nondistended, positive bowel sounds Extremities: no cyanosis or clubbing; trace edema Skin: warm and intact Objective Data Vital Signs Vital Signs: Vital Signs
[2020-10-27 15:03] LABS: Sodium 115 mmol/L (137-145)
--- NOTE | 2020-10-27 15:10 | PM.IMPN ---
Progress Note: A&P Assessment and Plan (1) Acute kidney failure: Code(s): N17.9 - Acute kidney failure, unspecified Status: Acute Assessment and Plan: Creatinine elevated at 7.5 at presentation with increase up to 12.4 today. Likely due to combination of hypovolemic episode and rhabdomyolysis. Renal US showed mildly increased renal cortical echogenicity without evidence of hydronephrosis. Urine electrolytes consistent with pre-renal etiology. He has not had improvement with IV fluids and attempts at force diuresis Nephrology has been consulted and input is appreciated. Case has been discussed Dr. Barry. IV fluids have been discontinued due to findings of mild pulmonary vascular congestion on CXR Serologic workup was ordered to rule out intrinsic kidney disease pending Monitor renal function and electrolytes closely. Discussed with patient and family concern for possible need for renal replacement therapy (2) Rhabdomyolysis: Code(s): M62.82 - Rhabdomyolysis Status: Acute Assessment and Plan: Secondary to aggressive exertion and heat exposure beginning on 10/21/20. CK remains >30532. UA with 3+ blood. LFTs are elevated. He has been rehydrated with IV fluids and has approximately 9 L positive fluid balance. Urine output is low. Fluids have been discontinued at this time as noted above Trend CK. Monitor urine output closely (3) Elevated LFTs: Code(s): R79.89 - Other specified abnormal findings of blood chemistry Status: Acute Assessment and Plan: LFTs significantly elevated upon presentation with slow improvement. Bilirubin wnl. Suspected due to rhabdo. Abdominal ultrasound showed normal liver and gallbladder. Hepatitis panel negative. Continue to monitor LFTs. Suspect improvement with treatment of above. Discontinue acetaminophen (4) Hyponatremia: Code(s): E87.1 - Hypo-osmolality and hyponatremia Status: Acute Assessment and Plan: Remaining consistent at 115-117. This is likely due to excess free water intake complicated by acute renal failure. He has no neurologic symptoms. Telemetry reviewed. Monitor sodium q4h 3% normal saline administered today Appreciate nephrology recommendations. Goal is for increase of 4-6 mEq/L within 24 hour period Monitor on telemetry (5) Oliguria: Code(s): R34 - Anuria and oliguria Status: Acute Assessment and Plan: Bladder scan performed with no evidence of urinary retention. Bladder was decompressed on review of renal US. This is likely due to renal failure. Total of 750 cc urine output since admission and he is 9 L fluid positive. IV fluids discontinued as above Monitor intake and output closely. (6) Elevated blood pressure reading: Code(s): R03.0 - Elevated blood-pressure reading, without diagnosis of hypertension Status: Acute Assessment and Plan: Blood pressure has been elevated above, today up to 160/91. This may be due to suspected volume overload. Last BP was 147/79 We will monitor his blood pressure trends closely Subjective Date/time seen: 10/27/20 15:10 Interval history: Date of service: 10/27/20 Tashi Fink is a healthy 35 year old male who is seen in follow up for acute kidney failure, hyponatremia, and rhabdomyolysis. He is feeling fairly well. He is concerned about increased swelling in his lower extremities which he states spreads from his feet to mid thigh. He endorses mild GARRIDO after walking about 2 laps around the [place] but at rest, he denies shortness of breath. No cough. He is still having hiccups but seem to be improving. Appetite is improving. He denies any muscle cramping. No confusion. No chest pain or palpitations. He notes slightly more urine output today and states urine is becoming more light colored yellow. I spoke with his who was present at bedside to answer questions and provide updates. Jelena
[2020-10-27 20:36] LABS: Sodium 116 mmol/L (137-145)
[2020-10-27] MEDS: BUMETANIDE INJ 1 MG/4 ML VIAL 2.5 MG IV PUSH (21:47)
[2020-10-28] VITALS (23 sets, daily range): BP systolic 149–182; BP diastolic 69–98; PULSE 70–91; RESP 16–20; TEMP 36–37.1; O2SAT 98–100
[2020-10-28 01:16] LABS: Sodium 116 mmol/L (137-145)
[2020-10-28 05:55] LABS: Hemoglobin 12.1 g/dL (14.0-18.0); Mean Corpuscular HGB Conc 35.6 g/dl (32-36); Mean Corpuscular Volume 87.2 fl (80-100); Mean Platelet Volume 10.5 fl (7.4-10.4); Platelet Count Result 192 k/mm3 (150-375); Red Cell Distribution Width 12.1 % (11.5-14.5); White Blood Count 9.4 K/mm3 (4.5-10.0)
[2020-10-28 06:18] LABS: Alanine Aminotransferase 566 U/L (4-50); Albumin Level 3.4 g/dL (3.5-5.1); Alkaline Phosphatase 35 U/L (38-126); Anion Gap 14 mmol/L (8-16); Aspartate Amino Transferase 652 U/L (17-59); Bilirubin,Total 0.4 mg/dL (0.2-1.3); Blood Urea Nitrogen 96 mg/dL (9-20); Carbon Dioxide 18 mmol/L (22-30); Chloride 84 mmol/L (98-107); Glucose 88 mg/dL (75-110); Phosphorus 7.7 mg/dL (2.5-4.5); Potassium 4.9 mmol/L (3.4-5.0); Sodium 116 mmol/L (137-145)
[2020-10-28 06:44] LABS: Estimated CRCL calculation 9 ml/min; Estimated Glomerular Filt Rate 4
[2020-10-28 06:52] LABS: Creatine Kinase 10857 U/L (55-170)
--- NOTE | 2020-10-28 08:37 | P.PNNP_ITS ---
Progress Note: A&P Assessment and Plan (1) Acute kidney failure: Code(s): N17.9 - Acute kidney failure, unspecified Status: Acute Assessment and Plan: * SHARI * presumably due to rhabdomyolsis along with prerenal factors * renal ultrasound shows no hydronephrosis. Increased echogenicity can be from SHARI. * urine electrolytes suggest pre-renal azotemia * follow K+, Ca++, and phosphorus closely (relatively stable) * Patient is volume overloaded by chest x-ray. holding IVFs * C3 is mildly low. C4 is normal. Other serology is pending * the patient's BUN and creatinine continue to rise. He is volume overloaded. Will initiate dialysis. (2) Hyponatremia: Code(s): E87.1 - Hypo-osmolality and hyponatremia Status: Acute Assessment and Plan: * hyponatremia * Cortisol and TSH are okay. * S PE is pending. * Chest x-ray shows no concerns. * No neurologic issues. * Most likely this is just due to renal failure plus water drinking. * No symptoms from this. * Sodium level is 116 today. This is about the same as it was yesterday. * Dialysis should help this. Will do a very slow and short treatment with a low sodium bath so we do not increase the sodium too quickly. * I put him on a fluid restriction as well. He says that he is pushing fluids have lead to try to make his kidneys better. I talked with him about not drinking as much. * (3) Rhabdomyolysis: Code(s): M62.82 - Rhabdomyolysis Status: Acute Assessment and Plan: * CK finally has come down below 16,000. * with low urine output, he is not getting the bicarbonate infusions. * (4) Elevated LFTs: Code(s): R79.89 - Other specified abnormal findings of blood chemistry Status: Acute Assessment and Plan: * presumably related to #3 As muscles release AST and ALT as well. * is it possible his BP dropped as well leading to this and #1(?) * hepatitis studies Negative * follow trend Will continue to follow. Subjective Date/time seen: 10/28/20 08:37 Interval history: Tashi is feeling about the same today. He has hiccoughs off and on. He is swollen. He denies shortness of breath. Review of Systems Cardiovascular: Cardiovascular: Reports no additional cardiovascular complaints Respiratory: Respiratory: Reports no additional respiratory complaints Gastrointestinal: Gastrointestinal: Reports no additional gastrointestinal complaints Genitourinary: Genitourinary: Reports no additional male genitourinary complaints Exam Narrative: Exam Narrative: General: WD/WN male in NAD Heart: normal S1 and S2; no rub Lungs: clear bilaterally Abdomen: soft, nontender, nondistended, positive bowel sounds Extremities: 1+ edema Skin: warm and intact Objective Data Vital Signs Vital Signs: Vital Signs - 24 hr 10/27/20 10:00 10/27/20 12:00 10/27/20 14:00 Temperature 36.8 C 36.6 C Pulse Rate 72 70 72 Respiratory Rate 18 18 Blood Pressure 160/91 H 147/79 H Pulse Oximetry 100 98 10/27/20 16:00 10/27/20 18:00 10/27/20 20:00 Temperature 36.9 C Pulse Rate 80 72 74 Respiratory Rate 18 Blood Pressure 135/69 Pulse Oximetry 100 10/27/20 22:00 10/28/20 00:00 10/28/20 02:00
--- NOTE | 2020-10-28 08:37 | PM.PNNEP ---
Progress Note: A&P Assessment and Plan (1) Acute kidney failure: Code(s): N17.9 - Acute kidney failure, unspecified Status: Acute Assessment and Plan: SHARI presumably due to rhabdomyolsis along with prerenal factors renal ultrasound shows no hydronephrosis. Increased echogenicity can be from SHARI. urine electrolytes suggest pre-renal azotemia follow K+, Ca++, and phosphorus closely (relatively stable) Patient is volume overloaded by chest x-ray. holding IVFs C3 is mildly low. C4 is normal. Other serology is pending the patient's BUN and creatinine continue to rise. He is volume overloaded. Will initiate dialysis. (2) Hyponatremia: Code(s): E87.1 - Hypo-osmolality and hyponatremia Status: Acute Assessment and Plan: hyponatremia Cortisol and TSH are okay. S PE is pending. Chest x-ray shows no concerns. No neurologic issues. Most likely this is just due to renal failure plus water drinking. No symptoms from this. Sodium level is 116 today. This is about the same as it was yesterday. Dialysis should help this. Will do a very slow and short treatment with a low sodium bath so we do not increase the sodium too quickly. I put him on a fluid restriction as well. He says that he is pushing fluids have lead to try to make his kidneys better. I talked with him about not drinking as much. (3) Rhabdomyolysis: Code(s): M62.82 - Rhabdomyolysis Status: Acute Assessment and Plan: CK finally has come down below 16,000. with low urine output, he is not getting the bicarbonate infusions. (4) Elevated LFTs: Code(s): R79.89 - Other specified abnormal findings of blood chemistry Status: Acute Assessment and Plan: presumably related to #3 As muscles release AST and ALT as well. is it possible his BP dropped as well leading to this and #1(?) hepatitis studies Negative follow trend Will continue to follow. Subjective Date/time seen: 10/28/20 08:37 Interval history: Tashi is feeling about the same today. He has hiccoughs off and on. He is swollen. He denies shortness of breath. Review of Systems Cardiovascular: Cardiovascular: Reports no additional cardiovascular complaints Respiratory: Respiratory: Reports no additional respiratory complaints Gastrointestinal: Gastrointestinal: Reports no additional gastrointestinal complaints Genitourinary: Genitourinary: Reports no additional male genitourinary complaints Exam Narrative: Exam Narrative: General: WD/WN male in NAD Heart: normal S1 and S2; no rub Lungs: clear bilaterally Abdomen: soft, nontender, nondistended, positive bowel sounds Extremities: 1+ edema Skin: warm and intact Objective Data Vital Signs Vital Signs: Vital Signs - 24 hr 10/27/20 10:00 10/27/20 12:00 10/27/20 14:00 Temperature 36.8 C 36.6 C Pulse Rate 72 70 72 Respiratory Rate 18 18 Blood Pressure 160/91 H 147/79 H Pulse Oximetry 100 98 10/27/20 16:00 10/27/20 18:00 10/27/20 20:00 Temperature 36.9 C Pulse Rate 80 72 74 Respiratory Rate 18 Blood Pressure 135/69 Pulse Oximetry 100 10/27/20 22:00 10/28/20 00:00 10/28/20 02:00 Temperature 36.8 C 36.6 C Pulse Rate 79 75 75 Respiratory Rate 21 H 20 Blood Pressure 154/76 H 159/69 H Pulse Oximetry 100 98 10/28/20 04:00 10/28/20 06:00 Temperature 36.1 C L Pulse Rate 71 71 Respiratory Rate 20 Blood Pressure 149/80 H Pulse Oximetry 98 Intake/Output Intake/Output: Intake & Output 10/25/20 10/26/20 10/27/20 10/28/20 23:59 23:59 23:59 23:59 Intake Total 3350 4254 3263 Output Total 330 250 275 300 Balance 3020 4004 2988 -300 Meds/Results Medications: Active Medications Generic Name Dose Route Start Last Admin Trade Name Freq PRN Reason Stop Dose Admin Famotidine 20 mg 10/26/20 21:00 10/27/20 21:46 Famotidine 20 Mg Tablet PO
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
[2020-10-28 09:28] LABS: Sodium 116 mmol/L (137-145)
--- NOTE | 2020-10-28 09:53 | PM.PROC ---
Procedure Note - Detailed Date of procedure: 10/28/20 Pre-op diagnosis: rhaddomyolysis, acute kidney failure, hyponatremia Post-op diagnosis: same Procedure performed: Placement of Trialysis catheter in right internal jugular vein under ultrasound guidance Description of procedure: The patient was placed in the supine position. The bed was then placed in Trendelenburg with the patient facing to his left to expose the right neck. I then prepped and draped the right neck in normal sterile fashion. A time-out was then done to verify the patient's identity as well as the procedure being performed. I then used the ultrasound to view the right internal jugular vein. Once this was identified, I localized the skin superior to the vein. I then used the 18 gauge needle to gain access into the right internal jugular vein, once again under ultrasound guidance. The guidewire was then passed into the right internal jugular vein. Once this was noted in good position, I removed the needle just leaving the guidewire in the vein. I then enlarged the incision around the guidewire in the right neck. I then dilated the vein and using the dilators provided in the kit under sterile Seldinger technique. Once the vein was adequately dilated, I was able to easily slide the catheter over the guidewire into the right internal jugular vein. I placed a 24 cm 12 German Trialysis catheter into the right internal jugular vein. I then removed the guidewire, now just leaving the catheter in the vein. I was then able to easily draw and flush from all 3 port sites . I then sutured the catheter in place in the right neck. Sterile dressing was then placed. I did not place final heparin flush into the catheter as the patient is going to get emergent dialysis today. The patient tolerated the procedure well. Implants: 24 cm 12 German Trialysis catheter in right IJ Anesthesia: local Surgeon: Dorothy Silverio MD Estimated blood loss (mL): 5 Drains: No Packing: No Pathology: none sent Complications: No immediate complications Condition: stable Disposition: floor Findings: 1st stick right IJ via ultrasound guidance
[2020-10-28] MEDS: FAMOTIDINE 20 MG TABLET PO ×2 (10:13→20:51)
--- NOTE | 2020-10-28 10:20 | PC.NURSE ---
Temporary hemodialysis catheter placed at bedside by Dr. Silverio. Patient tolerated procedure well.
--- NOTE | 2020-10-28 10:25 | P.PNIM_ITS ---
Progress Note: A&P Assessment and Plan (1) Acute kidney failure: Code(s): N17.9 - Acute kidney failure, unspecified <Maribel LuciaILENE - Last Filed: 10/28/20 10:37> Status: Acute <Maribel Lucia KRYSTLEGeorge - Last Filed: 10/28/20 10:37> Assessment and Plan: Creatinine elevated at 7.5 at presentation with increase up to 14.9 today. Likely due to combination of hypovolemic episode and rhabdomyolysis. Renal US showed mildly increased renal cortical echogenicity without evidence of hydronephrosis. Urine electrolytes consistent with pre-renal etiology. He unfortunately has not had improvement with IV fluids and attempts at force diuresis. * Nephrology has been consulted and input is appreciated. * He will be undergoing temporary catheter placement today per general surgery and will initiate temporary hemodialysis this afternoon. * IV fluids have been discontinued due to findings of volume overload evident by mild pulmonary vascular congestion on CXR and increased lower extremity edema * Serologic workup was ordered to rule out intrinsic kidney disease pending * Monitor renal function and electrolytes closely. <Maribel YangGlenroy ClementILENE hernandez - Last Filed: 10/28/20 10:37> (2) Rhabdomyolysis: Code(s): M62.82 - Rhabdomyolysis <Maribel VaughanILENE hernandez - Last Filed: 10/28/20 10:37> Status: Acute <Maribel LuciaILENE - Last Filed: 10/28/20 10:37> Assessment and Plan: Secondary to aggressive exertion and heat exposure beginning on 10/21/20. CK was >60158. UA with 3+ blood. LFTs are elevated. He has been rehydrated with IV fluids and has approximately 9 L positive fluid balance. Urine output is low. CK [place] finally declined [place] 16[place] [address] today. * Fluids have been discontinued at this time as noted above * Trend CK. * Monitor urine output closely <Maribel YangGlenroy ClementILENE hernandez - Last Filed: 10/28/20 10:37> (3) Elevated LFTs: Code(s): R79.89 - Other specified abnormal findings of blood chemistry <Maribel YangGlenroy Lucia PA-C - Last Filed: 10/28/20 10:37> Status: Acute <Maribel Vaughanac, PA-C - Last Filed: 10/28/20 10:37> Assessment and Plan: LFTs significantly elevated upon presentation with slow improvement. Bilirubin wnl. Suspected due to rhabdo. Abdominal ultrasound showed normal liver and gallbladder. Hepatitis panel negative. * Continue to monitor LFTs. Suspect improvement with treatment of above <Maribel Lucia PA-C - Last Filed: 10/28/20 10:37> (4) Hyponatremia: Code(s): E87.1 - Hypo-osmolality and hyponatremia <Maribel JGlenroy Lucia PA-C - Last Filed: 10/28/20 10:37> Status: Acute <Maribel CeliaGlenroy Lucia PA-C - Last Filed: 10/28/20 10:37> Assessment and Plan: Remaining consistent at 115-117. This was likely due to excess free water intake complicated by acute renal failure. He has no neurologic symptoms. Telemetry reviewed. Cortisol and TSH within normal limits. 3% normal saline administered 10/27/2020 without much change in his sodium trends * Monitor sodium q4h * Anticipate improvement in sodium levels with hemodialysis. Appreciate nephrology recommendations. Goal is for increase of 4-6 mEq/L within 24 hour period. Monitor sodium levels closely post dialysis to ensure appropriate rate of correction * Monitor on telemetry <Maribel Lucia PA-C - Last Filed: 10/28/20 10:37> (5) Oliguria: Code(s): R34 - Anuria and oliguria <Maribel Lucia PA-C - Last Filed: 10/28/20 10:37> Status: Acute <Maribel CeliaGlenroy Lucia PA-C - Last Filed: 10/28/20 10:
--- NOTE | 2020-10-28 10:25 | PM.IMPN ---
Progress Note: A&P Assessment and Plan (1) Acute kidney failure: Code(s): N17.9 - Acute kidney failure, unspecified <Maribel Lucia KRYSTLEGeorge - Last Filed: 10/28/20 10:37> Status: Acute <Maribel Lucia PA-C - Last Filed: 10/28/20 10:37> Assessment and Plan: Creatinine elevated at 7.5 at presentation with increase up to 14.9 today. Likely due to combination of hypovolemic episode and rhabdomyolysis. Renal US showed mildly increased renal cortical echogenicity without evidence of hydronephrosis. Urine electrolytes consistent with pre-renal etiology. He unfortunately has not had improvement with IV fluids and attempts at force diuresis. Nephrology has been consulted and input is appreciated. He will be undergoing temporary catheter placement today per general surgery and will initiate temporary hemodialysis this afternoon. IV fluids have been discontinued due to findings of volume overload evident by mild pulmonary vascular congestion on CXR and increased lower extremity edema Serologic workup was ordered to rule out intrinsic kidney disease pending Monitor renal function and electrolytes closely. <Maribel Lucia KRYSTLEKarenTrena - Last Filed: 10/28/20 10:37> (2) Rhabdomyolysis: Code(s): M62.82 - Rhabdomyolysis <Maribel Lucia ILENE - Last Filed: 10/28/20 10:37> Status: Acute <Maribel Lucia ILENE - Last Filed: 10/28/20 10:37> Assessment and Plan: Secondary to aggressive exertion and heat exposure beginning on 10/21/20. CK was >87865. UA with 3+ blood. LFTs are elevated. He has been rehydrated with IV fluids and has approximately 9 L positive fluid balance. Urine output is low. CK has finally declined below 16[place]000 [place] [address] today. Fluids have been discontinued at this time as noted above Trend CK. Monitor urine output closely <Maribel Lucia KRYSTLEKarenTrena - Last Filed: 10/28/20 10:37> (3) Elevated LFTs: Code(s): R79.89 - Other specified abnormal findings of blood chemistry <Maribel Vaughandavid KRYSTLEGeorge - Last Filed: 10/28/20 10:37> Status: Acute <Maribel Lucia KRYSTLEGeorge - Last Filed: 10/28/20 10:37> Assessment and Plan: LFTs significantly elevated upon presentation with slow improvement. Bilirubin wnl. Suspected due to rhabdo. Abdominal ultrasound showed normal liver and gallbladder. Hepatitis panel negative. Continue to monitor LFTs. Suspect improvement with treatment of above <Maribel Lucia PA-C - Last Filed: 10/28/20 10:37> (4) Hyponatremia: Code(s): E87.1 - Hypo-osmolality and hyponatremia <Maribel Lucia PA-C - Last Filed: 10/28/20 10:37> Status: Acute <Maribel Lucia PA-C - Last Filed: 10/28/20 10:37> Assessment and Plan: Remaining consistent at 115-117. This was likely due to excess free water intake complicated by acute renal failure. He has no neurologic symptoms. Telemetry reviewed. Cortisol and TSH within normal limits. 3% normal saline administered 10/27/2020 without much change in his sodium trends Monitor sodium q4h Anticipate improvement in sodium levels with hemodialysis. Appreciate nephrology recommendations. Goal is for increase of 4-6 mEq/L within 24 hour period. Monitor sodium levels closely post dialysis to ensure appropriate rate of correction Monitor on telemetry <Maribel Lucia PA-C - Last Filed: 10/28/20 10:37> (5) Oliguria: Code(s): R34 - Anuria and oliguria <Maribel Lucia ILENE - Last Filed: 10/28/20 10:37> Status: Acute <Maribel Lucia ILENE - Last Filed: 10/28/20 10:37> Assessment and Plan: Bladder scan performed with no evidence of urinary retention. Bladder was decompressed on review of renal US. This is likely due to renal failure. Total of approximately 1000 cc urine output since admission and he is 10 L fluid positive. IV fluids discontinued as above Monitor intake and
--- NOTE | 2020-10-28 13:02 | PC.NURSE ---
To dialysis via bed with staff.
[2020-10-28 14:48] LABS: Hepatitis B Surface Antigen Negative (Negative)
[2020-10-28 15:08] LABS: Hepatitis B Surface Anti Res Indeterminate
--- NOTE | 2020-10-28 15:46 | PM.EVENT ---
Event Note Event Note Event Note: Patient is on dialysis and tolerating it well. His blood pressure is generous. Removing some fluid. Will come back tomorrow for another treatment. How much is Duf and how much is HD will depend on the sodium level. He was seen at 3:20 p.m.
[2020-10-28 18:56] LABS: Sodium 119 mmol/L (137-145)
[2020-10-28 21:26] LABS: Osmolality, Urine 256 mOsm/kg (50-1200)
[2020-10-28 21:51] LABS: Sodium 118 mmol/L (137-145)
[2020-10-29] VITALS (24 sets, daily range): BP systolic 153–192; BP diastolic 72–101; PULSE 69–88; RESP 18–20; TEMP 36–37; O2SAT 98–100
[2020-10-29 01:33] LABS: Sodium 117 mmol/L (137-145)
[2020-10-29 06:02] LABS: Hematocrit 31.6 % (42.0-52.0); Hemoglobin 11.7 g/dL (14.0-18.0)
[2020-10-29 06:50] LABS: Alanine Aminotransferase 405 U/L (4-50); Alkaline Phosphatase 31 U/L (38-126); Anion Gap 11 mmol/L (8-16); Aspartate Amino Transferase 309 U/L (17-59); Bilirubin,Total 0.4 mg/dL (0.2-1.3); Blood Urea Nitrogen 97 mg/dL (9-20); Calcium 7.4 mg/dL (8.4-10.2); Carbon Dioxide 20 mmol/L (22-30); Chloride 86 mmol/L (98-107); Estimated CRCL calculation 9 ml/min; Estimated Glomerular Filt Rate 4; Glucose 90 mg/dL (75-110); Phosphorus 8.4 mg/dL (2.5-4.5); Potassium 4.7 mmol/L (3.4-5.0); Sodium 117 mmol/L (137-145)
[2020-10-29 07:00] LABS: Creatine Kinase 5475 U/L (55-170)
[2020-10-29] MEDS: FAMOTIDINE 20 MG TABLET PO ×2 (08:39→20:51)
--- NOTE | 2020-10-29 09:00 | PC.NURSE ---
To dialysis via bed with staff.
--- NOTE | 2020-10-29 09:11 | P.PNNP_ITS ---
Progress Note: A&P Assessment and Plan (1) Acute kidney failure: Code(s): N17.9 - Acute kidney failure, unspecified Status: Acute Assessment and Plan: * SHARI * presumably due to rhabdomyolsis along with prerenal factors * renal ultrasound shows no hydronephrosis. Increased echogenicity can be from SHARI. * urine electrolytes suggest pre-renal azotemia * follow K+, Ca++, and phosphorus closely (relatively stable) * C3 is mildly low. C4 is normal. Other serology is pending * Urine output is a little bit better. * His creatinine is still rising. * Will check another level tomorrow. * Because he is making a little more urine I am going to try around to diuretics. (2) Hyponatremia: Code(s): E87.1 - Hypo-osmolality and hyponatremia Status: Acute Assessment and Plan: * hyponatremia * Cortisol and TSH are okay. * S PE is pending. * Chest x-ray shows no concerns. * No neurologic issues. * Most likely this is just due to renal failure plus water drinking. * No symptoms from this. * He is currently on a fluid restriction of 1200cc per day.. * 5/ Na 116 then 119 after HD * 10/29 Na 117 * Getting hemodialysis on a low sodium bath. Today will do a longer treatment. (3) Rhabdomyolysis: Code(s): M62.82 - Rhabdomyolysis Status: Acute Assessment and Plan: * Etiology probably due to overexertion. * CK finally has come down below 16,000. Now down to 5475. * with low urine output, he is not getting the bicarbonate infusions. * CO2 is 20. Will give oral bicarb and he is getting dialysis on a high bicarb bath. (4) Elevated LFTs: Code(s): R79.89 - Other specified abnormal findings of blood chemistry Status: Acute Assessment and Plan: * presumably related to #3 As muscles release AST and ALT as well. * is it possible his BP dropped as well leading to this and #1(?) * hepatitis studies Negative * AST/ALT continue to drop Subjective Date/time seen: 10/29/20 09:11 Interval history: Tashi is feeling better today. He says his urine is lightening up. He says his appetite is good. Swelling is a little better. He is on dialysis and tolerating it well. He was seen at 9:00 a.m. Review of Systems Cardiovascular: Cardiovascular: Reports no additional cardiovascular complaints Respiratory: Respiratory: Reports no additional respiratory complaints Gastrointestinal: Gastrointestinal: Reports no additional gastrointestinal com plaints Genitourinary: Genitourinary: Reports no additional male genitourinary complaints Exam Narrative: Exam Narrative: WDWN in NAD skin no rash head ncat lungs clear cor reg no rub abd BS+ nontender and soft ext 1 to 2+ edema. Objective Data Vital Signs Vital Signs: Vital Signs - 24 hr 10/28/20 10:00 10/28/20 12:00 10/28/20 13:00 Temperature 36.7 C 37.0 C Pulse Rate 75 78 74 Respiratory Rate 16 20 Blood Pressure 152/82 H 170/84 H Pulse Oximetry 99 10/28/20 13:07 10/28/20 13:15 10/28/20 13:30 Temperature Pulse Rate 73 71 70 Respiratory Rate Blood Pressure 177/89 H 182/92 H 174/88 H Pulse Oximetry 10/28/20 13:45 10/28/20 14:00 10/28/20 14:15 Temperature Pulse Rate 70 71 70
--- NOTE | 2020-10-29 09:11 | PM.PNNEP ---
Progress Note: A&P Assessment and Plan (1) Acute kidney failure: Code(s): N17.9 - Acute kidney failure, unspecified Status: Acute Assessment and Plan: SHARI presumably due to rhabdomyolsis along with prerenal factors renal ultrasound shows no hydronephrosis. Increased echogenicity can be from SHARI. urine electrolytes suggest pre-renal azotemia follow K+, Ca++, and phosphorus closely (relatively stable) C3 is mildly low. C4 is normal. Other serology is pending Urine output is a little bit better. His creatinine is still rising. Will check another level tomorrow. Because he is making a little more urine I am going to try around to diuretics. (2) Hyponatremia: Code(s): E87.1 - Hypo-osmolality and hyponatremia Status: Acute Assessment and Plan: hyponatremia Cortisol and TSH are okay. S PE is pending. Chest x-ray shows no concerns. No neurologic issues. Most likely this is just due to renal failure plus water drinking. No symptoms from this. He is currently on a fluid restriction of 1200cc per day.. 10/28 Na 116 then 119 after HD 10/29 Na 117 Getting hemodialysis on a low sodium bath. Today will do a longer treatment. (3) Rhabdomyolysis: Code(s): M62.82 - Rhabdomyolysis Status: Acute Assessment and Plan: Etiology probably due to overexertion. CK finally has come down below 16,000. Now down to 5475. with low urine output, he is not getting the bicarbonate infusions. CO2 is 20. Will give oral bicarb and he is getting dialysis on a high bicarb bath. (4) Elevated LFTs: Code(s): R79.89 - Other specified abnormal findings of blood chemistry Status: Acute Assessment and Plan: presumably related to #3 As muscles release AST and ALT as well. is it possible his BP dropped as well leading to this and #1(?) hepatitis studies Negative AST/ALT continue to drop Subjective Date/time seen: 10/29/20 09:11 Interval history: Tashi is feeling better today. He says his urine is lightening up. He says his appetite is good. Swelling is a little better. He is on dialysis and tolerating it well. He was seen at 9:00 a.m. Review of Systems Cardiovascular: Cardiovascular: Reports no additional cardiovascular complaints Respiratory: Respiratory: Reports no additional respiratory complaints Gastrointestinal: Gastrointestinal: Reports no additional gastrointestinal complaints Genitourinary: Genitourinary: Reports no additional male genitourinary complaints Exam Narrative: Exam Narrative: WDWN in NAD skin no rash head ncat lungs clear cor reg no rub abd BS+ nontender and soft ext 1 to 2+ edema. Objective Data Vital Signs Vital Signs: Vital Signs - 24 hr 10/28/20 10:00 10/28/20 12:00 10/28/20 13:00 Temperature 36.7 C 37.0 C Pulse Rate 75 78 74 Respiratory Rate 16 20 Blood Pressure 152/82 H 170/84 H Pulse Oximetry 99 10/28/20 13:07 10/28/20 13:15 10/28/20 13:30 Temperature Pulse Rate 73 71 70 Respiratory Rate Blood Pressure 177/89 H 182/92 H 174/88 H Pulse Oximetry 10/28/20 13:45 10/28/20 14:00 10/28/20 14:15 Temperature Pulse Rate 70 71 70 Respiratory Rate Blood Pressure 180/75 H 178/98 H 175/88 H Pulse Oximetry 10/28/20 14:30 10/28/20 14:45 10/28/20 15:00 Temperature Pulse Rate 73 73 77 Respiratory Rate Blood Pressure 176/95 H 177/94 H 181/91 H Pulse Oximetry 10/28/20 15:15 10/28/20 15:30 10/28/20 15:37 Temperature Pulse Rate 75 78 74 Respiratory Rate Blood Pressure 175/88 H 179/89 H 180/87 H Pulse Oximetry 10/28/20 15:45 10/28/20 16:00 10/28/20 20:00 Temperature 37.0 C 36.8 C 37.1 C Pulse Rate 77 79 75 Respiratory Rate 20 18 16 Blood Pressure 175/95 H 155/73 H 163/78 H Pulse Oximetry 100 100 10/29/20 00:00 10/29/20 04:00 Temperature 36.9 C 36.7 C Pulse Rate 73 74 Respiratory Rate 20 18
--- NOTE | 2020-10-29 09:43 | PM.IMPN ---
Progress Note: A&P Assessment and Plan (1) Acute kidney failure: Code(s): N17.9 - Acute kidney failure, unspecified Status: Acute Assessment and Plan: Creatinine elevated at 7.5 at presentation with increase up to 15.3 today. Likely due to combination of hypovolemic episode and rhabdomyolysis. Renal US showed mildly increased renal cortical echogenicity without evidence of hydronephrosis. Urine electrolytes consistent with pre-renal etiology. He did not have improvement with IV fluids and attempts at force diuresis, therefore temporary dialysis catheter placed on 10/28/20 and hemodialysis was initiated. Nephrology has been consulted and input is appreciated. Continue with hemodialysis per nephrology recommendations. Gentle dialysis on 10/28/20 for attempts at improvement in volume status with no change in BUN/Cr. Discussed case with Dr. Sutton today and notes plans for more aggressive dialysis today. IV fluids discontinued due to findings of volume overload evident by mild pulmonary vascular congestion on CXR and increased lower extremity edema Serologic workup ordered to rule out intrinsic kidney disease is pending Monitor renal function and electrolytes closely. Renal diet (2) Rhabdomyolysis: Code(s): M62.82 - Rhabdomyolysis Status: Acute Assessment and Plan: Secondary to aggressive exertion and heat exposure beginning on 10/21/20. CK was >38359. UA with 3+ blood. LFTs are elevated. He has been rehydrated with IV fluids and has approximately 9 L positive fluid balance. Urine output is low but improving. CK has finally demonstrating improvement and is 5475 today. Fluids have been discontinued due to volume overload as noted above Trend CK. Monitor urine output closely (3) Elevated LFTs: Code(s): R79.89 - Other specified abnormal findings of blood chemistry Status: Acute Assessment and Plan: LFTs significantly elevated upon presentation with slow improvement. Bilirubin wnl. Suspected due to rhabdo. Abdominal ultrasound showed normal liver and gallbladder. Hepatitis panel negative. Continue to monitor LFTs. Suspect improvement with treatment of above (4) Hyponatremia: Code(s): E87.1 - Hypo-osmolality and hyponatremia Status: Acute Assessment and Plan: Remaining stable. This was likely due to excess free water intake complicated by acute renal failure. He has no neurologic symptoms. Telemetry reviewed. Cortisol and TSH within normal limits. 3% normal saline administered 10/27/2020 without much change in his sodium trends. He received low sodium bath HD on 10/28/20 with slight improvement in sodium levels. Sodium remaining consistent around 117 today. Monitor sodium q6h Anticipate improvement in sodium levels with hemodialysis. Appreciate nephrology recommendations. Goal is for increase of 4-6 mEq/L within 24 hour period. Monitor sodium levels closely post dialysis to ensure appropriate rate of correction Monitor on telemetry (5) Oliguria: Code(s): R34 - Anuria and oliguria Status: Acute Assessment and Plan: Bladder scan performed with no evidence of urinary retention. Bladder was decompressed on review of renal US. This is likely due to renal failure. Total of approximately 1300 cc urine output since admission and he is 9 L fluid positive. IV fluids discontinued as above Monitor intake and output closely. (6) Elevated blood pressure reading: Code(s): R03.0 - Elevated blood-pressure reading, without diagnosis of hypertension Status: Acute Assessment and Plan: Blood pressure has been elevated above target, mostly in the 150-160s. This may be due to volume overload. BP was elevated yesterday during dialysis. Last BP 172/85 Discussed with cosmetic counselor. If BP remains elevated after HD today, will initiate amlodipine with caution given his lower extremity edema. JAVAD/ARB contraindicated due t
[2020-10-29 09:47] LABS: Sodium 119 mmol/L (137-145)
[2020-10-29 18:21] LABS: Sodium 120 mmol/L (137-145)
[2020-10-29] MEDS: CENTRAL LINE FLUSH 10 ML IV PUSH ×2 (18:35→20:51)
[2020-10-30] VITALS (21 sets, daily range): BP systolic 150–196; BP diastolic 75–101; PULSE 69–94; RESP 16–20; TEMP 36.6–37.3; O2SAT 99–100
[2020-10-30] MEDS: CENTRAL LINE FLUSH 20 ML IV PUSH (05:31)
[2020-10-30 05:47] LABS: Hemoglobin 11.9 g/dL (14.0-18.0)
[2020-10-30 06:10] LABS: Alanine Aminotransferase 324 U/L (4-50); Alkaline Phosphatase 31 U/L (38-126); Anion Gap 12 mmol/L (8-16); Aspartate Amino Transferase 182 U/L (17-59); Bilirubin,Total 0.6 mg/dL (0.2-1.3); Blood Urea Nitrogen 88 mg/dL (9-20); Calcium 7.8 mg/dL (8.4-10.2); Carbon Dioxide 20 mmol/L (22-30); Chloride 89 mmol/L (98-107); Glucose 98 mg/dL (75-110); Magnesium 2.2 mg/dL (1.6-2.3); Phosphorus 8.5 mg/dL (2.5-4.5); Potassium 4.7 mmol/L (3.4-5.0); Sodium 121 mmol/L (137-145)
[2020-10-30 06:17] LABS: Alpha 1 Globulin 0.3 g/dL (0.2-0.3); Alpha 2 Globulin 0.6 g/dL (0.5-0.9); Beta 1 Globulin 0.4 g/dL (0.4-0.6); Gamma Globulin 0.8 g/dL (0.8-1.7); Protein, Total 5.3 g/dL (6.1-8.1)
[2020-10-30 06:22] LABS: Ionized Calcium 3.5 mg/dL (4.8-5.6)
[2020-10-30 06:29] LABS: Creatine Kinase 2628 U/L (55-170); Estimated CRCL calculation 9 ml/min; Estimated Glomerular Filt Rate 4
--- NOTE | 2020-10-30 08:57 | P.PNNP_ITS ---
Progress Note: A&P Assessment and Plan (1) Acute kidney failure: Code(s): N17.9 - Acute kidney failure, unspecified Status: Acute Assessment and Plan: * SHARI * renal ultrasound shows no hydronephrosis. Increased echogenicity can be from SHARI. * urine electrolytes suggest pre-renal azotemia * follow K+, Ca++, and phosphorus closely (relatively stable) * C3 is mildly low. C4 is normal. Other serology is pending * Urine output is a little bit better but not much. * CK is down to 2628. * His creatinine is still very high. * Will do another treatment today. (2) Hyponatremia: Code(s): E87.1 - Hypo-osmolality and hyponatremia Status: Acute Assessment and Plan: * hyponatremia * Cortisol and TSH are okay. * S PE Is normal. * Chest x-ray shows no concerns. * No neurologic issues. * Most likely this is just due to renal failure plus water drinking. * No symptoms from this. * He is currently on a fluid restriction of 1200cc per day.. * 10/28 Na 116 then 119 after HD * 10/29 Na 117 * 10/30 Na 121 * Getting hemodialysis on a low sodium bath. * Will do another treatment today to get rid of fluid. (3) Rhabdomyolysis: Code(s): M62.82 - Rhabdomyolysis Status: Acute Assessment and Plan: * Etiology probably due to overexertion. * CK finally has come down below 16,000. Now down to 5475. * with low urine output, he is not getting the bicarbonate infusions. * CO2 is 20. Will give oral bicarb today (4) Elevated LFTs: Code(s): R79.89 - Other specified abnormal findings of blood chemistry Status: Acute Assessment and Plan: * presumably related to #3 As muscles release AST and ALT as well. * is it possible his BP dropped as well leading to this and #1(?) * hepatitis studies Negative * AST/ALT continue to drop Subjective Date/time seen: 10/30/20 08:57 Interval history: Tashi is feeling better today. He made some urine this morning. Eating well. No nausea. Still some hiccoughs. Swelling is much better. will get another dialysis today. Review of Systems Cardiovascular: Cardiovascular: Reports no additional cardiovascular complaints Respiratory: Respiratory: Reports no additional respiratory complaints Gastrointestinal: Gastrointestinal: Reports no additional gastrointestinal complaints Genitourinary: Genitourinary: Reports no additional male genitourinary complaints Exam Narrative: Exam Narrative: WDWN in NAD skin no rash He has some bruising on his lower extremities head ncat lungs clear cor reg no rub abd BS+ nontender and soft ext 1 to 2+ edema. Objective Data Vital Signs Vital Signs: Vital Signs - 24 hr 10/29/20 09:07 10/29/20 09:15 10/29/20 09:30 Temperature Pulse Rate 78 73 80 Respiratory Rate Blood Pressure 184/99 H 170/92 H 177/93 H Pulse Oximetry 10/29/20 09:45 10/29/20 10:00 10/29/20 10:15 Temperature Pulse Rate 76 76 72 Respiratory Rate Blood Pressure 175/96 H 191/98 H 183/97 H Pulse Oximetry 10/29/20 10:30 10/29/20 10:45 10/29/20 11:00 Temperature Pulse Rate 72 73 70 Respiratory Rate Blood Pressure 181/96 H 184/95 H 188/101 H
--- NOTE | 2020-10-30 08:57 | PM.PNNEP ---
Progress Note: A&P Assessment and Plan (1) Acute kidney failure: Code(s): N17.9 - Acute kidney failure, unspecified Status: Acute Assessment and Plan: SHARI renal ultrasound shows no hydronephrosis. Increased echogenicity can be from SHARI. urine electrolytes suggest pre-renal azotemia follow K+, Ca++, and phosphorus closely (relatively stable) C3 is mildly low. C4 is normal. Other serology is pending Urine output is a little bit better but not much. CK is down to 2628. His creatinine is still very high. Will do another treatment today. (2) Hyponatremia: Code(s): E87.1 - Hypo-osmolality and hyponatremia Status: Acute Assessment and Plan: hyponatremia Cortisol and TSH are okay. S PE Is normal. Chest x-ray shows no concerns. No neurologic issues. Most likely this is just due to renal failure plus water drinking. No symptoms from this. He is currently on a fluid restriction of 1200cc per day.. 10/28 Na 116 then 119 after HD 10/29 Na 117 10/30 Na 121 Getting hemodialysis on a low sodium bath. Will do another treatment today to get rid of fluid. (3) Rhabdomyolysis: Code(s): M62.82 - Rhabdomyolysis Status: Acute Assessment and Plan: Etiology probably due to overexertion. CK finally has come down below 16,000. Now down to 5475. with low urine output, he is not getting the bicarbonate infusions. CO2 is 20. Will give oral bicarb today (4) Elevated LFTs: Code(s): R79.89 - Other specified abnormal findings of blood chemistry Status: Acute Assessment and Plan: presumably related to #3 As muscles release AST and ALT as well. is it possible his BP dropped as well leading to this and #1(?) hepatitis studies Negative AST/ALT continue to drop Subjective Date/time seen: 10/30/20 08:57 Interval history: Tashi is feeling better today. He made some urine this morning. Eating well. No nausea. Still some hiccoughs. Swelling is much better. will get another dialysis today. Review of Systems Cardiovascular: Cardiovascular: Reports no additional cardiovascular complaints Respiratory: Respiratory: Reports no additional respiratory complaints Gastrointestinal: Gastrointestinal: Reports no additional gastrointestinal complaints Genitourinary: Genitourinary: Reports no additional male genitourinary complaints Exam Narrative: Exam Narrative: WDWN in NAD skin no rash He has some bruising on his lower extremities head ncat lungs clear cor reg no rub abd BS+ nontender and soft ext 1 to 2+ edema. Objective Data Vital Signs Vital Signs: Vital Signs - 24 hr 10/29/20 09:07 10/29/20 09:15 10/29/20 09:30 Temperature Pulse Rate 78 73 80 Respiratory Rate Blood Pressure 184/99 H 170/92 H 177/93 H Pulse Oximetry 10/29/20 09:45 10/29/20 10:00 10/29/20 10:15 Temperature Pulse Rate 76 76 72 Respiratory Rate Blood Pressure 175/96 H 191/98 H 183/97 H Pulse Oximetry 10/29/20 10:30 10/29/20 10:45 10/29/20 11:00 Temperature Pulse Rate 72 73 70 Respiratory Rate Blood Pressure 181/96 H 184/95 H 188/101 H Pulse Oximetry 10/29/20 11:15 10/29/20 11:30 10/29/20 11:45 Temperature Pulse Rate 73 74 69 Respiratory Rate Blood Pressure 172/96 H 192/99 H 185/96 H Pulse Oximetry 10/29/20 12:00 10/29/20 12:07 10/29/20 12:15 Temperature 36.3 C L Pulse Rate 75 74 74 Respiratory Rate 20 Blood Pressure 185/72 H 185/72 H Pulse Oximetry 10/29/20 12:59 10/29/20 14:00 10/29/20 16:00 Temperature 36.8 C 37.0 C Pulse Rate 80 88 79 Respiratory Rate 20 18 Blood Pressure 181/86 H 167/85 H Pulse Oximetry 99 99 10/29/20 18:00 10/29/20 20:00 10/30/20 00:00 Temperature 36.9 C 37.0 C 36.6 C Pulse Rate 76 81 76 Respiratory Rate 18 20 20 Blood Pressure 157/87 H 160/85 H 163/83 H Pulse Oximetry 100 100 100 0
[2020-10-30] MEDS: SODIUM BICARBONATE TAB 650 MG TABLET 1300 MG PO ×2 (09:28→17:58)
[2020-10-30] MEDS: FAMOTIDINE 20 MG TABLET PO ×2 (09:29→20:32)
[2020-10-30] MEDS: amLODIPine BESYLATE 5 MG TABLET PO (09:29)
[2020-10-30] MEDS: BUMETANIDE INJ 2.5 MG/10 ML VIAL 2 MG IV PUSH (09:31)
[2020-10-30] MEDS: cloNIDine HCL 0.1 MG TABLET PO (10:49)
--- NOTE | 2020-10-30 12:04 | PC.NURSE ---
On 10/30/20, the student, [Usha Engle ], provided care and completed [facility] documentation on this patient. I have reviewed the student's documentation and agree with the findings.
[2020-10-30 13:49] LABS: Anti Streptolysin O Screen <50 IU/mL (<200)
[2020-10-30 13:49] LABS: Kappa\\Lambda Light Chains 1.79 (0.26-1.65); Lambda Light Chain 33.2 mg/L (5.7-26.3)
[2020-10-30] MEDS: CENTRAL LINE FLUSH 10 ML IV PUSH ×3 (14:39→20:33)
--- NOTE | 2020-10-30 16:14 | PM.IMPN ---
Progress Note: A&P Assessment and Plan (1) Acute kidney failure: Code(s): N17.9 - Acute kidney failure, unspecified Status: Acute Assessment and Plan: Creatinine elevated at 7.5 at presentation with increase up to 15.3, still 15.2 today. Likely due to combination of hypovolemic episode and rhabdomyolysis. Renal US showed mildly increased renal cortical echogenicity without evidence of hydronephrosis. Urine electrolytes consistent with pre-renal etiology. He did not have improvement with IV fluids and attempts at force diuresis, therefore temporary dialysis catheter placed on 10/28/20 and hemodialysis was initiated. Nephrology has been consulted and input is appreciated. Continue with hemodialysis per nephrology recommendations. Tolerated dialysis well today. IV fluids discontinued due to findings of volume overload evident by mild pulmonary vascular congestion on CXR and increased lower extremity edema Serologic workup ordered to rule out intrinsic kidney disease is pending Monitor renal function and electrolytes daily. Renal diet (2) Rhabdomyolysis: Code(s): M62.82 - Rhabdomyolysis Status: Acute Assessment and Plan: Secondary to aggressive exertion and heat exposure beginning on 10/21/20. CK was >86587 for days on arrival. LFTs are elevated. He has been rehydrated with IV fluids and then became fluid overloaded. Urine output is low but improving. CK improved to 2628 today. Trend CK. Monitor urine output closely (3) Elevated LFTs: Code(s): R79.89 - Other specified abnormal findings of blood chemistry Status: Acute Assessment and Plan: LFTs significantly elevated upon presentation with slow improvement. Bilirubin wnl. Suspected due to rhabdo. Abdominal ultrasound showed normal liver and gallbladder. Hepatitis panel negative. Continue to monitor LFTs. Improving. (4) Hyponatremia: Code(s): E87.1 - Hypo-osmolality and hyponatremia Status: Acute Assessment and Plan: Improving slowly. This was likely due to excess free water intake complicated by acute renal failure. He has no neurologic symptoms. Cortisol and TSH within normal limits. 3% normal saline administered 10/27/2020 without much change in his sodium trends. He received low sodium bath HD on 10/28/20 with slight improvement in sodium levels. Sodium improved to 121 today. Anticipate improvement in sodium levels with hemodialysis. Appreciate nephrology recommendations. Goal is for increase of 4-6 mEq/L within 24 hour period. Monitor sodium levels closely post dialysis to ensure appropriate rate of correction Monitor on telemetry (5) Oliguria: Code(s): R34 - Anuria and oliguria Status: Acute Assessment and Plan: Bladder scan performed with no evidence of urinary retention. Bladder was decompressed on review of renal US. Suspect related to renal failure. Monitor intake and output closely. (6) Elevated blood pressure reading: Code(s): R03.0 - Elevated blood-pressure reading, without diagnosis of hypertension Status: Acute Assessment and Plan: Blood pressure has been elevated above target, mostly in the 150-160s. This may be due to volume overload. Last 161/84. Amlodipine initiated 10/30 with caution given his lower extremity edema. JAVAD/ARB contraindicated due to SHARI. Monitor BP and adjust treatment as needed. Subjective Date/time seen: 10/30/20 16:00 Interval history: Mr. Fink is a very pleasant 35yo M admitted with acute kidney failure, rhabdomyolysis, hyponatremia. He tolerated dialysis well today. He feels his swelling overall is improving with dialysis. Walking a little easier today. He de
[2020-10-30 18:59] LABS: Sodium 125 mmol/L (137-145)
[2020-10-31] VITALS (24 sets, daily range): BP systolic 146–174; BP diastolic 78–93; PULSE 70–86; RESP 18–20; TEMP 36–37.3; O2SAT 98–100
[2020-10-31] MEDS: CENTRAL LINE FLUSH 20 ML IV PUSH (05:31)
[2020-10-31 05:36] LABS: Hematocrit 32.2 % (42.0-52.0); Hemoglobin 11.6 g/dL (14.0-18.0); Mean Corpuscular Hemoglobin 31.4 pg (26-34); Mean Corpuscular Volume 87.3 fl (80-100); Mean Platelet Volume 9.3 fl (7.4-10.4); Platelet Count Result 211 k/mm3 (150-375); Red Blood Count 3.69 M/mm3 (4.6-6.20); White Blood Count 7.9 K/mm3 (4.5-10.0)
[2020-10-31 05:50] LABS: Anion Gap 9 mmol/L (8-16); Blood Urea Nitrogen 69 mg/dL (9-20); Calcium 8.1 mg/dL (8.4-10.2); Carbon Dioxide 25 mmol/L (22-30); Chloride 90 mmol/L (98-107); Creatine Kinase 1276 U/L (55-170); Estimated CRCL calculation 10 ml/min; Estimated Glomerular Filt Rate 4; Glucose 98 mg/dL (75-110); Phosphorus 7.7 mg/dL (2.5-4.5); Potassium 4.7 mmol/L (3.4-5.0); Sodium 124 mmol/L (137-145)
[2020-10-31] MEDS: SODIUM BICARBONATE TAB 650 MG TABLET 1300 MG PO ×2 (08:35→16:24)
[2020-10-31] MEDS: FAMOTIDINE 20 MG TABLET PO ×2 (08:35→20:48)
[2020-10-31] MEDS: BUMETANIDE INJ 1 MG/4 ML VIAL 2 MG IV PUSH ×2 (08:35→16:24)
[2020-10-31] MEDS: amLODIPine BESYLATE 5 MG TABLET PO (08:35)
--- NOTE | 2020-10-31 09:30 | PC.NURSE ---
Pt transferred to dialysis
--- NOTE | 2020-10-31 10:27 | PM.IMPN ---
Progress Note: A&P Assessment and Plan (1) Acute kidney failure: Code(s): N17.9 - Acute kidney failure, unspecified Status: Acute Assessment and Plan: Creatinine elevated at 7.5 at presentation with increase up to 15.3 at its max and down to 13.5 today - Likely due to combination of hypovolemic episode, strenuous exercise and rhabdomyolysis - Renal US showed mildly increased renal cortical echogenicity without evidence of hydronephrosis. -Urine electrolytes consistent with pre-renal etiology. -creatinine improving today and patient had good urine output yesterday -Nephrology has been consulted and input is appreciated. -Continue with hemodialysis per nephrology recommendations. Plan form for more dialysis today -continue routine monitoring (2) Rhabdomyolysis: Code(s): M62.82 - Rhabdomyolysis Status: Acute Assessment and Plan: Secondary to aggressive exertion and heat exposure beginning on 10/21/20. - CK was >97053 for days on arrival. - LFTs are elevated and trending down as expected. - He has been rehydrated with IV fluids and then became fluid overloaded. Urine output is low but improving. CK improved to 1276 today. (3) Elevated LFTs: Code(s): R79.89 - Other specified abnormal findings of blood chemistry Status: Acute Assessment and Plan: LFTs significantly elevated upon presentation with slow improvement. Bilirubin wnl. Suspected due to rhabdo. -Abdominal ultrasound showed normal liver and gallbladder. - Hepatitis panel negative. (4) Hyponatremia: Code(s): E87.1 - Hypo-osmolality and hyponatremia Status: Acute Assessment and Plan: 124 today, improving slowly. - This was likely due to excess free water intake complicated by acute renal failure. He has no neurologic symptoms. -Cortisol and TSH within normal limits. 3% normal saline administered 10/27/2020 without much change in his sodium trends. -He received low sodium bath HD on 10/28/20 with slight improvement in sodium levels. -Anticipate continued improvement in sodium levels with hemodialysis. Appreciate nephrology recommendations. -Goal is for increase of 6-8 mEq/L within 24 hour period. Monitor sodium levels closely post dialysis to ensure appropriate rate of correction (5) Oliguria: Code(s): R34 - Anuria and oliguria Status: Acute Assessment and Plan: Improving with dialysis and improving kidney function (6) Elevated blood pressure reading: Code(s): R03.0 - Elevated blood-pressure reading, without diagnosis of hypertension Status: Acute Assessment and Plan: Blood pressure has been elevated above target, mostly in the 150-160s. Likely due to volume overload. -Last 168/. -Amlodipine initiated 10/30 with caution given his lower extremity edema. Continue bumex Additional Plan Edema noted on chest x-ray which is likely due to fluid overload but cardiomegaly is concerning. Cardiorenal syndrome? Cardiomyopathy? Will order echo Time Spent With Patient Time with patient: 25 - 35 minutes Subjective Date/time seen: 10/31/20 10:27 Interval history: Mr. Fink is a very pleasant 35yo M admitted with acute kidney failure, rhabdomyolysis, and hyponatremia. Patient was seen today and is doing well. He thinks his swelling from the top half of his body is improving but still is swollen from his abdomen down to his toes. He has absolutely no pain. He is feeling a little constipated. He denies chest pain, shortness of breath, cough, fevers, chills, nausea, vomiting or headache. Review of Systems Review of Systems: All systems reviewed & are unremarkable except as noted in HPI and below Exam Narrative: Exam Narrative: General: Well developed well nourished patient in NAD HEENT: normocephalic Neck: supple, temporary dialysis catheter in place Neuro: Alert and oriented x4 CV:RRR, telemetry with no abnormal reviews R
--- NOTE | 2020-10-31 11:16 | PCNWS ---
Weekly nutritional screen. Patient is tolerating current diet with adequate intake. No weight loss reported. No nutritional needs at this time.
--- NOTE | 2020-10-31 12:26 | P.PNNP_ITS ---
Progress Note: A&P Assessment and Plan (1) Acute kidney failure: Code(s): N17.9 - Acute kidney failure, unspecified Status: Acute Assessment and Plan: * SHARI * renal ultrasound shows no hydronephrosis. Increased echogenicity can be from SHARI. * urine electrolytes suggest pre-renal azotemia * follow K+, Ca++, and phosphorus closely (relatively stable) * C3 is mildly low. C4 is normal. Other serology is pending * Urine output is a little bit better but not much. * CK is down to 1276. * His creatinine is gradually better * Will do another treatment today. * Will see how he does overnight and see how his labs look tomorrow. If his urine output continues to improve we may hold off on dialysis tomorrow. (2) Hyponatremia: Code(s): E87.1 - Hypo-osmolality and hyponatremia Status: Acute Assessment and Plan: * hyponatremia * Cortisol and TSH are okay. * S PE Is normal. * Chest x-ray shows no concerns. * No neurologic issues. * Most likely this is just due to renal failure plus water drinking. * No symptoms from this. * He is currently on a fluid restriction of 1200cc per day.. * 5/ Na 116 then 119 after HD * / Na 117 * 5/ Na 121 * 5/6 Na 124 * Getting hemodialysis on a low sodium bath. * Will do another treatment today to get rid of fluid. (3) Rhabdomyolysis: Code(s): M62.82 - Rhabdomyolysis Status: Acute Assessment and Plan: * Etiology probably due to overexertion. * CK finally has come down below 16,000. This continues to improve. * CO2 is 25. Repeat tomorrow. (4) Elevated LFTs: Code(s): R79.89 - Other specified abnormal findings of blood chemistry Status: Acute Assessment and Plan: * presumably related to #3 As muscles release AST and ALT as well. * is it possible his BP dropped as well leading to this and #1(?) * hepatitis studies Negative * AST/ALT continue to drop Subjective Date/time seen: 10/31/20 12:26 Interval history: Tashi is feeling better today. Urine output as up a little bit. Good appetite. Swelling continues to improve will get another dialysis today. Review of Systems Cardiovascular: Cardiovascular: Reports no additional cardiovascular complaints Respiratory: Respiratory: Reports no additional respiratory complaints Gastrointestinal: Gastrointestinal: Reports no additional gastrointestinal complaints Genitourinary: Genitourinary: Reports no additional male genitourinary complaints Exam Narrative: Exam Narrative: WDWN in NAD skin no rash He has some bruising on his lower extremities head ncat lungs clear bilaterally cor reg no rub or gallop abd BS+ nontender and soft ext 1 to 2+ edema. Objective Data Vital Signs Vital Signs: Vital Signs - 24 hr 10/30/20 12:30 10/30/20 12:45 10/30/20 13:00 Temperature 36.7 C Pulse Rate 77 77 72 Respiratory Rate 20 Blood Pressure 168/87 H 150/75 H 162/85 H Pulse Oximetry 10/30/20 13:02 10/30/20 14:00 10/30/20 16:00 Temperature 36.9 C 36.9 C Pulse Rate 75 80 84 Respiratory Rate 16 18 Blood Pressure 165/88 H 161/84 H 156/76 H Pulse Oximetry 100 100 10/30/20 20:00 10/31/20 00:00 10/31/20 04:00 Temperature 37.3 C 37.3 C 37.
--- NOTE | 2020-10-31 12:26 | PM.PNNEP ---
Progress Note: A&P Assessment and Plan (1) Acute kidney failure: Code(s): N17.9 - Acute kidney failure, unspecified Status: Acute Assessment and Plan: SHARI renal ultrasound shows no hydronephrosis. Increased echogenicity can be from SHARI. urine electrolytes suggest pre-renal azotemia follow K+, Ca++, and phosphorus closely (relatively stable) C3 is mildly low. C4 is normal. Other serology is pending Urine output is a little bit better but not much. CK is down to 1276. His creatinine is gradually better Will do another treatment today. Will see how he does overnight and see how his labs look tomorrow. If his urine output continues to improve we may hold off on dialysis tomorrow. (2) Hyponatremia: Code(s): E87.1 - Hypo-osmolality and hyponatremia Status: Acute Assessment and Plan: hyponatremia Cortisol and TSH are okay. S PE Is normal. Chest x-ray shows no concerns. No neurologic issues. Most likely this is just due to renal failure plus water drinking. No symptoms from this. He is currently on a fluid restriction of 1200cc per day.. 5/3 Na 116 then 119 after HD / Na 117 5/5 Na 121 5/6 Na 124 Getting hemodialysis on a low sodium bath. Will do another treatment today to get rid of fluid. (3) Rhabdomyolysis: Code(s): M62.82 - Rhabdomyolysis Status: Acute Assessment and Plan: Etiology probably due to overexertion. CK finally has come down below 16,000. This continues to improve. CO2 is 25. Repeat tomorrow. (4) Elevated LFTs: Code(s): R79.89 - Other specified abnormal findings of blood chemistry Status: Acute Assessment and Plan: presumably related to #3 As muscles release AST and ALT as well. is it possible his BP dropped as well leading to this and #1(?) hepatitis studies Negative AST/ALT continue to drop Subjective Date/time seen: 10/31/20 12:26 Interval history: Tashi is feeling better today. Urine output as up a little bit. Good appetite. Swelling continues to improve will get another dialysis today. Review of Systems Cardiovascular: Cardiovascular: Reports no additional cardiovascular complaints Respiratory: Respiratory: Reports no additional respiratory complaints Gastrointestinal: Gastrointestinal: Reports no additional gastrointestinal complaints Genitourinary: Genitourinary: Reports no additional male genitourinary complaints Exam Narrative: Exam Narrative: WDWN in NAD skin no rash He has some bruising on his lower extremities head ncat lungs clear bilaterally cor reg no rub or gallop abd BS+ nontender and soft ext 1 to 2+ edema. Objective Data Vital Signs Vital Signs: Vital Signs - 24 hr 10/30/20 12:30 10/30/20 12:45 10/30/20 13:00 Temperature 36.7 C Pulse Rate 77 77 72 Respiratory Rate 20 Blood Pressure 168/87 H 150/75 H 162/85 H Pulse Oximetry 10/30/20 13:02 10/30/20 14:00 10/30/20 16:00 Temperature 36.9 C 36.9 C Pulse Rate 75 80 84 Respiratory Rate 16 18 Blood Pressure 165/88 H 161/84 H 156/76 H Pulse Oximetry 100 100 10/30/20 20:00 10/31/20 00:00 10/31/20 04:00 Temperature 37.3 C 37.3 C 37.3 C Pulse Rate 76 73 78 Respiratory Rate 20 20 18 Blood Pressure 155/80 H 146/80 H 153/80 H Pulse Oximetry 100 99 98 10/31/20 08:00 10/31/20 09:40 10/31/20 09:43 Temperature 36.7 C Pulse Rate 86 78 78 Respiratory Rate 18 Blood Pressure 168/85 H 173/89 H Pulse Oximetry 10/31/20 10:15 10/31/20 10:30 10/31/20 11:00 Temperature Pulse Rate 76 77 72 Respiratory Rate Blood Pressure 165/91 H 170/90 H 161/87 H Pulse Oximetry 10/31/20 11:15 10/31/20 11:16 10/31/20 11:19 Temperature Pulse Rate 76 78 86 Respiratory Rate Blood Pressure 162/87 H 173/89 H 173/84 H Pulse Oximetry 10/31/20 11:30 10/31/20 11:45 10/31/20 12:00 Temperature Pulse Rate 73 71 72
--- NOTE | 2020-10-31 12:31 | PM.EVENT ---
Event Note Event Note Event Note: On dialysis and tolerating it well. Seen at 12:25 p.m.
[2020-10-31] MEDS: CENTRAL LINE FLUSH 10 ML IV PUSH ×2 (14:22→17:11)
[2020-10-31] MEDS: polyethylene glycoL 3350 17 GM POWD.PACK PO (16:24)
[2020-10-31 16:48] LABS: Sodium 126 mmol/L (137-145)
[2020-11-01] VITALS (7 sets, daily range): BP systolic 146–159; BP diastolic 74–83; PULSE 75–97; RESP 14–20; TEMP 36.8–37.3; O2SAT 10–100
--- NOTE | 2020-11-01 | ECHO_ITS ---
Patient Info Name: Tashi Fink Age: 35 years : 1985 Gender: Male Ht: 75 in Wt: 287 lbs BSA: 2.67 m2 HR: 88 bpm BP: 153 / 80 mmHg Technical Quality: Good Exam Date: 11/01/2020 8:57 AM Exam Location: [facility] Exam Room: 257 Patient Status: Inpatient Admit Date: 10/24/2020 Staff Ordering Physician: Usha Leonard PA-C Ice Cream Maker: Cristin Harris RDCS Attending Provider: Usha Leonard PA-C Referring Physician: Aisha MCMAHON; Exam Type: CA echo doppler color flow Study Info Indications - CARDIOMEGALY ON HEMO DIALYSIS Complete two-dimensional, color flow and Doppler transthoracic echocardiogram is performed. Summary 1. Complete two-dimensional, color flow and Doppler transthoracic echocardiogram is performed. 2. Left ventricular chamber dimension is normal. 3. Left ventricular systolic function is normal, estimated at 60-65%. 4. There is mildly increased left ventricular wall thickness. 5. The left ventricular diastolic function is normal. 6. E/e' 8 is minimally elevated. 7. Left atrial chamber dimension is moderately enlarged. 8. Linear artifact in the right atrium suggestive of catheter(s), pacemaker lead(s), or ICD lead(s). 9. There is trace mitral valve regurgitation. 10. There is mild tricuspid valve regurgitation. 11. Moderate pulmonary hypertension, estimated pulmonary arterial systolic pressure is 55 mmHg. Left Ventricle E/e' 8 is minimally elevated. Left ventricular chamber dimension is normal. Left ventricular systolic function is normal, estimated at 60-65%. There is mildly increased left ventricular wall thickness. The left ventricular diastolic function is normal. Right Ventricle Right ventricular chamber dimension is normal. Right ventricular systolic function is normal. Left Atria Left atrial chamber dimension is moderately enlarged. Right Atria Linear artifact in the right atrium suggestive of catheter(s), pacemaker lead(s), or ICD lead(s). Right atrial chamber dimension is normal. Aortic Valve The aortic valve is trileaflet. There is no aortic valve stenosis. There is no aortic valve regurgitation. Pulmonic Valve There is no pulmonic regurgitation. Mitral Valve There is no mitral valve stenosis. There is trace mitral valve regurgitation. Tricuspid Valve There is mild tricuspid valve regurgitation. Moderate pulmonary hypertension, estimated pulmonary arterial systolic pressure is 55 mmHg. Pericardium/Pleural There is no pericardial effusion. Inferior Vena Cava Normal inferior vena cava with >50% collapse upon inspiration consistent with normal right atrial pressure, 5 mmHg. Aorta The aortic root size at the sinus of Valsalva is normal. Left Ventricular Outflow Tract Name Value Normal LVOT 2D LVOT Diameter 2.1 cm LVOT Doppler LVOT Peak Velocity 127 cm/s LVOT Peak Gradient 6 mmHg LVOT Mean Gradient 4 mmHg LVOT VTI 24 cm LVOT VTI/AV VTI Ratio 0.7 LVOT Stroke
[2020-11-01 05:25] LABS: Alanine Aminotransferase 235 U/L (4-50); Albumin Level 3.2 g/dL (3.5-5.1); Alkaline Phosphatase 31 U/L (38-126); Anion Gap 7 mmol/L (8-16); Aspartate Amino Transferase 100 U/L (17-59); Bilirubin,Total 0.7 mg/dL (0.2-1.3); Blood Urea Nitrogen 55 mg/dL (9-20); Calcium 8.3 mg/dL (8.4-10.2); Carbon Dioxide 29 mmol/L (22-30); Chloride 90 mmol/L (98-107); Creatine Kinase 865 U/L (55-170); Estimated CRCL calculation 9 ml/min; Estimated Glomerular Filt Rate 5; Glucose 98 mg/dL (75-110); Potassium 4.8 mmol/L (3.4-5.0); Sodium 126 mmol/L (137-145)
[2020-11-01] MEDS: amLODIPine BESYLATE 5 MG TABLET PO (09:54)
[2020-11-01] MEDS: FAMOTIDINE 20 MG TABLET PO ×2 (09:54→20:34)
[2020-11-01] MEDS: BUMETANIDE INJ 1 MG/4 ML VIAL 2 MG IV PUSH (09:54)
[2020-11-01] MEDS: SODIUM BICARBONATE TAB 650 MG TABLET 1300 MG PO ×2 (09:54→16:36)
[2020-11-01] MEDS: polyethylene glycoL 3350 17 GM POWD.PACK PO (10:18)
--- NOTE | 2020-11-01 13:05 | PM.IMPN ---
Progress Note: A&P Assessment and Plan (1) Acute kidney failure: Code(s): N17.9 - Acute kidney failure, unspecified Status: Acute Assessment and Plan: Creatinine elevated at 7.5 at presentation with increase up to 15.3 at its max and down to 11.4 today - Likely due to combination of hypovolemic episode, strenuous exercise and rhabdomyolysis - Renal US showed mildly increased renal cortical echogenicity without evidence of hydronephrosis. -Urine electrolytes consistent with pre-renal etiology. -creatinine improving today and patient had good urine output again yesterday -Spoke with Dr. Sutton. Plan to hold off on dialysis today and see how his kidney function is tomorrow. Once we have the results tomorrow, a decision about dialysis can be made then. (2) Rhabdomyolysis: Code(s): M62.82 - Rhabdomyolysis Status: Acute Assessment and Plan: Secondary to aggressive exertion and heat exposure beginning on 10/21/20. - CK was >70931 for days on arrival. - LFTs are elevated and trending down as expected. - He has been rehydrated with IV fluids and then became fluid overloaded. Urine output is robust. CK improved to 865 today. (3) Elevated LFTs: Code(s): R79.89 - Other specified abnormal findings of blood chemistry Status: Acute Assessment and Plan: LFTs significantly elevated upon presentation with slow improvement. Bilirubin wnl. Suspected due to rhabdo. -Abdominal ultrasound showed normal liver and gallbladder. - Hepatitis panel negative. (4) Hyponatremia: Code(s): E87.1 - Hypo-osmolality and hyponatremia Status: Acute Assessment and Plan: 126 today, improving slowly. - This was likely due to excess free water intake complicated by acute renal failure. He has no neurologic symptoms. -Cortisol and TSH within normal limits. 3% normal saline administered 10/27/2020 without much change in his sodium trends. -Anticipate continued improvement in sodium levels with hemodialysis. -Goal is for increase of 6-8 mEq/L within 24 hour period. (5) Oliguria: Code(s): R34 - Anuria and oliguria Status: Acute Assessment and Plan: Resolved. (6) Elevated blood pressure reading: Code(s): R03.0 - Elevated blood-pressure reading, without diagnosis of hypertension Status: Acute Assessment and Plan: Blood pressure has been elevated above target, mostly in the 150-160s. Likely due to volume overload. -Last 152/83 -Amlodipine initiated / with caution given his lower extremity edema. Additional Plan echo reviewed, pt may need sleep study outpt. Okay to d/c tele Subjective Date/time seen: 11/01/20 13:05 Interval history: Mr. Fink is a very pleasant 35yo M admitted with acute kidney failure, rhabdomyolysis, and hyponatremia. Patient was seen today and is doing well. He states his swelling is improving. He has absolutely no pain. He still feels a little constipated but is trying the miralax. He denies chest pain, shortness of breath, cough, fevers, chills, nausea, vomiting or headache. Exam Narrative: Exam Narrative: General: Well developed well nourished patient in NAD HEENT: normocephalic Neck: supple, temporary dialysis catheter in place Neuro: Alert and oriented x4 CV:RRR, telemetry with no abnormal reviews Resp:CTA Abd: Soft, non distended. No pain to palpation. Positive bowel sounds Extremities: 2+ pitting edema up to the proximal thighs. No pain to palpation. Objective Data Vital Signs Vital Signs: Vital Signs - 24 hr 10/31/20 13:15 10/31/20 13:25 10/31/20 14:00 Temperature 98.1 F 98.2 F Pulse Rate 70 73 78 Respiratory Rate 18 18 Blood Pressure 170/82 H 174/86 H 161/78 H Pulse Oximetry 99 10/31/20 18:00 10/31/20 20:00 11/01/20 00:00 Temperature 98.0 F 98.3 F 98.7 F Pulse Rate 73 79 87 Respiratory Rate 18 20 20 Blood Pressure 150/81 H 157/82 H 150/79 H Puls
--- NOTE | 2020-11-01 13:25 | P.PNNP_ITS ---
Progress Note: A&P Assessment and Plan (1) Acute kidney failure: Code(s): N17.9 - Acute kidney failure, unspecified Status: Acute Assessment and Plan: * SHARI * renal ultrasound shows no hydronephrosis. Increased echogenicity can be from SHARI. * urine electrolytes suggest pre-renal azotemia * follow K+, Ca++, and phosphorus closely (relatively stable) * C3 is mildly low. C4 is normal. Other serology is pending * Urine output is a little bit better but not much. * CK is down to 865. * His creatinine is gradually better because of dialysis. * Hold off on dialysis today. * Check another creatinine tomorrow. This gives us an idea of how good his kidneys are working. Decide on dialysis tomorrow. (2) Hyponatremia: Code(s): E87.1 - Hypo-osmolality and hyponatremia Status: Acute Assessment and Plan: * hyponatremia * Cortisol and TSH are okay. * S PE Is normal. * Chest x-ray shows no concerns. * No neurologic issues. * Most likely this is just due to renal failure plus water drinking. * No symptoms from this. * 5/ Na 116 then 119 after HD * / Na 117 * / Na 121 * 5/6 Na 124 * / Na 126 * Continue fluid restriction (3) Rhabdomyolysis: Code(s): M62.82 - Rhabdomyolysis Status: Acute Assessment and Plan: * Etiology probably due to overexertion. * CK finally has come down below 16,000. This continues to improve. * CO2 is 25. Repeat tomorrow. (4) Elevated LFTs: Code(s): R79.89 - Other specified abnormal findings of blood chemistry Status: Acute Assessment and Plan: * presumably related to #3 As muscles release AST and ALT as well. * is it possible his BP dropped as well leading to this and #1(?) * hepatitis studies Negative * AST/ALT continue to drop Subjective Date/time seen: 11/01/20 13:25 Interval history: Tashi is feeling better today. Urine output is up even more. Review of Systems Cardiovascular: Cardiovascular: Reports no additional cardiovascular complaints Respiratory: Respiratory: Reports no additional respiratory complaints Gastrointestinal: Gastrointestinal: Reports no additional gastrointestinal complaints Genitourinary: Genitourinary: Reports no additional male genitourinary complaints Exam Narrative: Exam Narrative: WDWN in NAD skin no rash He has some bruising on his lower extremities head ncat lungs clear to auscultation cor reg no rub or gallop abd BS+ nontender and soft ext 1 to 2+ edema. Definitely some improvement. Objective Data Vital Signs Vital Signs: Vital Signs - 24 hr 10/31/20 14:00 10/31/20 18:00 10/31/20 20:00 Temperature 36.8 C 36.7 C 36.8 C Pulse Rate 78 73 79 Respiratory Rate 18 18 20 Blood Pressure 161/78 H 150/81 H 157/82 H Pulse Oximetry 99 100 100 11/01/20 00:00 11/01/20 04:00 11/01/20 08:00 Temperature 37.1 C 37.0 C Pulse Rate 87 80 75 Respiratory Rate 20 20 Blood Pressure 150/79 H 146/81 H Pulse Oximetry 97 98 11/01/20 10:00 Temperature 36.8 C Pulse Rate 81 Respiratory Rate 14 Blood Pressure 152/83 H Pulse Oximetry 100 Intake/Output Intake/Output: Intake & Output 10/29
--- NOTE | 2020-11-01 13:25 | PM.PNNEP ---
Progress Note: A&P Assessment and Plan (1) Acute kidney failure: Code(s): N17.9 - Acute kidney failure, unspecified Status: Acute Assessment and Plan: SHARI renal ultrasound shows no hydronephrosis. Increased echogenicity can be from SHARI. urine electrolytes suggest pre-renal azotemia follow K+, Ca++, and phosphorus closely (relatively stable) C3 is mildly low. C4 is normal. Other serology is pending Urine output is a little bit better but not much. CK is down to 865. His creatinine is gradually better because of dialysis. Hold off on dialysis today. Check another creatinine tomorrow. This gives us an idea of how good his kidneys are working. Decide on dialysis tomorrow. (2) Hyponatremia: Code(s): E87.1 - Hypo-osmolality and hyponatremia Status: Acute Assessment and Plan: hyponatremia Cortisol and TSH are okay. S PE Is normal. Chest x-ray shows no concerns. No neurologic issues. Most likely this is just due to renal failure plus water drinking. No symptoms from this. 5/ Na 116 then 119 after HD 10/29 Na 117 5/5 Na 121 5/6 Na 124 5/7 Na 126 Continue fluid restriction (3) Rhabdomyolysis: Code(s): M62.82 - Rhabdomyolysis Status: Acute Assessment and Plan: Etiology probably due to overexertion. CK finally has come down below 16,000. This continues to improve. CO2 is 25. Repeat tomorrow. (4) Elevated LFTs: Code(s): R79.89 - Other specified abnormal findings of blood chemistry Status: Acute Assessment and Plan: presumably related to #3 As muscles release AST and ALT as well. is it possible his BP dropped as well leading to this and #1(?) hepatitis studies Negative AST/ALT continue to drop Subjective Date/time seen: 11/01/20 13:25 Interval history: Tashi is feeling better today. Urine output is up even more. Review of Systems Cardiovascular: Cardiovascular: Reports no additional cardiovascular complaints Respiratory: Respiratory: Reports no additional respiratory complaints Gastrointestinal: Gastrointestinal: Reports no additional gastrointestinal complaints Genitourinary: Genitourinary: Reports no additional male genitourinary complaints Exam Narrative: Exam Narrative: WDWN in NAD skin no rash He has some bruising on his lower extremities head ncat lungs clear to auscultation cor reg no rub or gallop abd BS+ nontender and soft ext 1 to 2+ edema. Definitely some improvement. Objective Data Vital Signs Vital Signs: Vital Signs - 24 hr 10/31/20 14:00 10/31/20 18:00 10/31/20 20:00 Temperature 36.8 C 36.7 C 36.8 C Pulse Rate 78 73 79 Respiratory Rate 18 18 20 Blood Pressure 161/78 H 150/81 H 157/82 H Pulse Oximetry 99 100 100 11/01/20 00:00 11/01/20 04:00 11/01/20 08:00 Temperature 37.1 C 37.0 C Pulse Rate 87 80 75 Respiratory Rate 20 20 Blood Pressure 150/79 H 146/81 H Pulse Oximetry 97 98 11/01/20 10:00 Temperature 36.8 C Pulse Rate 81 Respiratory Rate 14 Blood Pressure 152/83 H Pulse Oximetry 100 Intake/Output Intake/Output: Intake & Output 10/29/20 10/30/20 10/31/20 11/01/20 23:59 23:59 23:59 23:59 Intake Total 720 1200 720 900 Output Total 3446 6100 5000 300 Balance -2726 -4900 -4280 600 Meds/Results Medications: Active Medications Generic Name Dose Route Start Last Admin Trade Name Freq PRN Reason Stop Dose Admin Amlodipine Besylate 5 mg 10/30/20 09:00 11/01/20 09:54 Amlodipine Besylate 5 Mg Tablet PO 5 mg QAM NINO Administration Famotidine 20 mg 10/26/20 21:00 11/01/20 09:54 Famotidine 20 Mg Tablet PO 20 mg Q12HR NINO Administration Ondansetron HCl 4 mg 10/24/20 18:08 Ondansetron Inj 4 Mg/2 Ml Vial IV PUSH Q4H PRN Nausea Polyethylene Glycol 17 gm 10/31/20 10:41 11/01/20 10:18 Polyethylene Glycol 3350 17 Gm Powd.Pack PO 17 gm QAM PRN Admi
[2020-11-01] MEDS: CENTRAL LINE FLUSH 10 ML IV PUSH ×3 (14:00→20:36)
[2020-11-01 15:28] LABS: Chloride Rand Ur 28 mmol/L (32-290); Chloride/Creatinine Rand Ur 11 (23-275); Creatinine Random Urine 265 mg/dL (20-320)
[2020-11-02] VITALS (18 sets, daily range): BP systolic 134–171; BP diastolic 59–92; PULSE 73–92; RESP 16–21; TEMP 36.8–37.4; O2SAT 97–100
[2020-11-02 06:01] LABS: Potassium 5.5 mmol/L (3.4-5.0)
[2020-11-02 06:15] LABS: Alanine Aminotransferase 184 U/L (4-50); Albumin Level 3.3 g/dL (3.5-5.1); Alkaline Phosphatase 31 U/L (38-126); Anion Gap 10 mmol/L (8-16); Aspartate Amino Transferase 76 U/L (17-59); Bilirubin,Total 0.6 mg/dL (0.2-1.3); Blood Urea Nitrogen 72 mg/dL (9-20); Calcium 8.4 mg/dL (8.4-10.2); Carbon Dioxide 27 mmol/L (22-30); Chloride 90 mmol/L (98-107); Creatine Kinase 614 U/L (55-170); Estimated CRCL calculation 7 ml/min; Estimated Glomerular Filt Rate 4; Glucose 103 mg/dL (75-110); Magnesium 2.1 mg/dL (1.6-2.3); Phosphorus 8.3 mg/dL (2.5-4.5); Sodium 127 mmol/L (137-145)
[2020-11-02] MEDS: CENTRAL LINE FLUSH 10 ML IV PUSH ×3 (06:49→20:17)
[2020-11-02 07:56] LABS: ANCA Screen Negative (Negative)
--- NOTE | 2020-11-02 08:26 | PM.IMPN ---
Progress Note: A&P Assessment and Plan (1) Acute kidney failure: Code(s): N17.9 - Acute kidney failure, unspecified Status: Acute Assessment and Plan: Creatinine elevated at 7.5 at presentation with increase up to 15.3 at its max and was trending down with dialysis but dialysis was held yesterday and now his Cr is 14.4. -dialysis nurse is checking with Dr. casillas who will like dialyze him today, await his recommendations -potassium 5.5 today likely due to kidney dysfunction, await dialysis orders and likely treat with HD -Pt has had much less urine output but is still urinating. (bumex has been stopped, likely associated with decreasing is UOP) - SHARI likely due to combination of hypovolemic episode, strenuous exercise and rhabdomyolysis - Renal US showed mildly increased renal cortical echogenicity without evidence of hydronephrosis. -Urine electrolytes consistent with pre-renal etiology. -will place back on tele due to hyperkalemia but this can be discontinued once potassium has normalized again. (2) Rhabdomyolysis: Code(s): M62.82 - Rhabdomyolysis Status: Acute Assessment and Plan: Secondary to aggressive exertion and heat exposure beginning on 10/21/20. - CK was >11076 for days on arrival. - LFTs and CK trending down as expected. (3) Elevated LFTs: Code(s): R79.89 - Other specified abnormal findings of blood chemistry Status: Acute Assessment and Plan: LFTs significantly elevated upon presentation with slow improvement. Bilirubin wnl. Suspected due to rhabdo. -Abdominal ultrasound showed normal liver and gallbladder. - Hepatitis panel negative. (4) Hyponatremia: Code(s): E87.1 - Hypo-osmolality and hyponatremia Status: Acute Assessment and Plan: 127 today, improving slowly. - This was likely due to excess free water intake complicated by acute renal failure. He has no neurologic symptoms. -Cortisol and TSH within normal limits. 3% normal saline administered 10/27/2020 without much change in his sodium trends. -Anticipate continued improvement in sodium levels with hemodialysis. -Goal is for increase of 6-8 mEq/L within 24 hour period. (5) Oliguria: Code(s): R34 - Anuria and oliguria Status: Acute Assessment and Plan: Resolved. (6) Elevated blood pressure reading: Code(s): R03.0 - Elevated blood-pressure reading, without diagnosis of hypertension Status: Acute Assessment and Plan: Blood pressure has been elevated above target, mostly in the 150-160s. Likely due to volume overload. -Last 134/59 -Amlodipine initiated 5 with caution given his lower extremity edema. Additional Plan echo reviewed, pt may need sleep study outpt. Subjective Date/time seen: 11/02/20 08:26 Interval history: Mr. Fink is a very pleasant 35yo M admitted with acute kidney failure, rhabdomyolysis, and hyponatremia. Patient was seen today and is doing well. He states his swelling is improving. He has absolutely no pain. He is no longer constipated and is eating and drinking well. He denies chest pain, shortness of breath, cough, fevers, chills, nausea, vomiting or headache. Exam Narrative: Exam Narrative: General: Well developed well nourished patient in NAD HEENT: normocephalic Neck: supple, temporary dialysis catheter in place Neuro: Alert and oriented x4 CV:RRR Resp:CTA Abd: Soft, non distended. No pain to palpation. Positive bowel sounds Extremities: 2+ pitting edema up to the knee (improed) No pain to palpation. Objective Data Vital Signs Vital Signs: Vital Signs - 24 hr 11/01/20 10:00 11/01/20 14:00 11/01/20 18:00 Temperature 98.3 F 98.9 F 99.0 F Pulse Rate 81 89 97 Respiratory Rate 14 14 14 Blood Pressure 152/83 H 149/74 H 159/78 H Pulse Oximetry 100 100 100 11/01/20 22:00 11/02/20 02:00 11/02/20 05:47 Temperature 99.2 F 99.4 F 99.1 F Pulse Rate 77
[2020-11-02] MEDS: amLODIPine BESYLATE 5 MG TABLET PO (10:13)
[2020-11-02] MEDS: SODIUM BICARBONATE TAB 650 MG TABLET 1300 MG PO ×2 (10:14→18:21)
[2020-11-02] MEDS: FAMOTIDINE 20 MG TABLET PO ×2 (10:14→20:16)
[2020-11-02] MEDS: CALCIUM ACETATE 667 MG TABLET PO ×3 (10:14→18:21)
--- NOTE | 2020-11-02 10:15 | PC.NURSE ---
Patient transported to dialysis via bed.
--- NOTE | 2020-11-02 11:37 | P.PNNP_ITS ---
Progress Note: A&P Assessment and Plan (1) Acute kidney failure: Code(s): N17.9 - Acute kidney failure, unspecified Status: Acute Assessment and Plan: * SHARI * renal ultrasound shows no hydronephrosis. Increased echogenicity can be from SHARI. * urine electrolytes suggest pre-renal azotemia * follow K+, Ca++, and phosphorus closely (relatively stable) * C3 is mildly low. C4 is normal. Other serology is pending * Urine output is a little bit better but not much. * CK is down to 614 * His creatinine anup from 11-15 overnight. * Will get dialysis today. * Check another creatinine tomorrow and Wednesday. If he needs more dialysis on Wednesday then we should probably get him set up for a PermCath.. I will let surgery no to pencil him in for Wednesday afternoon. We can always cancel this if his creatinine is better. He cannot go home with a temporary catheter. So will place a tunneled catheter so that he can be discharged and have dialysis as an outpatient while we watch for renal recovery enough to come off the treatment. (2) Hyponatremia: Code(s): E87.1 - Hypo-osmolality and hyponatremia Status: Acute Assessment and Plan: * hyponatremia * Cortisol and TSH are okay. * S PE Is normal. * Chest x-ray shows no concerns. * No neurologic issues. * Most likely this is just due to renal failure plus water drinking. * No symptoms from this. * 5/ Na 116 then 119 after HD * / Na 117 * 5/ Na 121 * 5/6 Na 124 * / Na 126 * / Na 127 * Continue fluid restriction * Dialysis on a 135 bath. (3) Rhabdomyolysis: Code(s): M62.82 - Rhabdomyolysis Status: Acute Assessment and Plan: * Etiology probably due to overexertion. * CK finally has come down below 16,000. This continues to improve. * CO2 is 27. Repeat tomorrow. (4) Elevated LFTs: Code(s): R79.89 - Other specified abnormal findings of blood chemistry Status: Acute Assessment and Plan: * presumably related to #3 As muscles release AST and ALT as well. * is it possible his BP dropped as well leading to this and #1(?) * hepatitis studies Negative * AST/ALT continue to drop Subjective Date/time seen: 11/02/20 11:37 Interval history: Tashi is feeling better today. He is about to start dialysis. Unfortunately his creatinine shot up from 11 to 15 overnight. He is still making urine. Review of Systems Cardiovascular: Cardiovascular: Reports no additional cardiovascular complaints Respiratory: Respiratory: Reports no additional respiratory complaints Gastrointestinal: Gastrointestinal: Reports no additional gastrointestinal complaints Genitourinary: Genitourinary: Reports no additional male genitourinary complaints Exam Narrative: Exam Narrative: WDWN in NAD skin no rash He has some bruising on his lower extremities head ncat lungs clear to auscultation cor reg no rub or gallop abd BS+ nontender and soft ext 1 to 2+ edema. Definitely some improvement. Objective Data Vital Signs Vital Signs: Vital Signs - 24 hr 11/01/20 14:00 11/01/20 18:00 11/01/20 22:00 Temperature 37.2 C 37.2 C 37.3 C Pulse Rate 89 97 77 Respiratory Rate 14 14 16 Blood Pressure 149/74 H 159/78 H 148/78 H Pulse Oximetry 100 100 10 L 11/02/20 02:00 11/02/20 05:47 Temp
--- NOTE | 2020-11-02 11:37 | PM.PNNEP ---
Progress Note: A&P Assessment and Plan (1) Acute kidney failure: Code(s): N17.9 - Acute kidney failure, unspecified Status: Acute Assessment and Plan: SHARI renal ultrasound shows no hydronephrosis. Increased echogenicity can be from SHARI. urine electrolytes suggest pre-renal azotemia follow K+, Ca++, and phosphorus closely (relatively stable) C3 is mildly low. C4 is normal. Other serology is pending Urine output is a little bit better but not much. CK is down to 614 His creatinine anup from 11-15 overnight. Will get dialysis today. Check another creatinine tomorrow and Wednesday. If he needs more dialysis on Wednesday then we should probably get him set up for a PermCath.. I will let surgery no to pencil him in for Wednesday afternoon. We can always cancel this if his creatinine is better. He cannot go home with a temporary catheter. So will place a tunneled catheter so that he can be discharged and have dialysis as an outpatient while we watch for renal recovery enough to come off the treatment. (2) Hyponatremia: Code(s): E87.1 - Hypo-osmolality and hyponatremia Status: Acute Assessment and Plan: hyponatremia Cortisol and TSH are okay. S PE Is normal. Chest x-ray shows no concerns. No neurologic issues. Most likely this is just due to renal failure plus water drinking. No symptoms from this. 5/3 Na 116 then 119 after HD 5/4 Na 117 5/5 Na 121 5/6 Na 124 5/7 Na 126 5/8 Na 127 Continue fluid restriction Dialysis on a 135 bath. (3) Rhabdomyolysis: Code(s): M62.82 - Rhabdomyolysis Status: Acute Assessment and Plan: Etiology probably due to overexertion. CK finally has come down below 16,000. This continues to improve. CO2 is 27. Repeat tomorrow. (4) Elevated LFTs: Code(s): R79.89 - Other specified abnormal findings of blood chemistry Status: Acute Assessment and Plan: presumably related to #3 As muscles release AST and ALT as well. is it possible his BP dropped as well leading to this and #1(?) hepatitis studies Negative AST/ALT continue to drop Subjective Date/time seen: 11/02/20 11:37 Interval history: Tashi is feeling better today. He is about to start dialysis. Unfortunately his creatinine shot up from 11 to 15 overnight. He is still making urine. Review of Systems Cardiovascular: Cardiovascular: Reports no additional cardiovascular complaints Respiratory: Respiratory: Reports no additional respiratory complaints Gastrointestinal: Gastrointestinal: Reports no additional gastrointestinal complaints Genitourinary: Genitourinary: Reports no additional male genitourinary complaints Exam Narrative: Exam Narrative: WDWN in NAD skin no rash He has some bruising on his lower extremities head ncat lungs clear to auscultation cor reg no rub or gallop abd BS+ nontender and soft ext 1 to 2+ edema. Definitely some improvement. Objective Data Vital Signs Vital Signs: Vital Signs - 24 hr 11/01/20 14:00 11/01/20 18:00 11/01/20 22:00 Temperature 37.2 C 37.2 C 37.3 C Pulse Rate 89 97 77 Respiratory Rate 14 14 16 Blood Pressure 149/74 H 159/78 H 148/78 H Pulse Oximetry 100 100 10 L 11/02/20 02:00 11/02/20 05:47 Temperature 37.4 C 37.3 C Pulse Rate 86 87 Respiratory Rate 16 16 Blood Pressure 150/73 H 134/59 L Pulse Oximetry 99 97 Intake/Output Intake/Output: Intake & Output 10/30/20 10/31/20 11/01/20 11/02/20 23:59 23:59 23:59 23:59 Intake Total 6487 498 6074 480 Output Total 6100 5000 475 300 Balance -4900 -4280 725 180 Meds/Results Medications: Active Medications Generic Name Dose Route Start Last Admin Trade Name Freq PRN Reason Stop Dose Admin Amlodipine Besylate 5 mg 10/30/20 09:00 11/02/20 10:13 Amlodipine Besylate 5 Mg Tablet PO 5 mg QAM NINO Administration Calcium Acetate 667 mg 11/02/20 09:00
--- NOTE | 2020-11-02 14:56 | PC.NURSE ---
Patient returned from dialysis via bed with staff. Settled in room. No distress noted.
[2020-11-03] VITALS (12 sets, daily range): BP systolic 138–171; BP diastolic 73–86; PULSE 79–93; RESP 16–21; TEMP 36.8–37; O2SAT 98–100
[2020-11-03] MEDS: CENTRAL LINE FLUSH 10 ML IV PUSH ×3 (06:00→20:22)
[2020-11-03 06:17] LABS: Hematocrit 31.3 % (42.0-52.0); Hemoglobin 10.6 g/dL (14.0-18.0)
[2020-11-03 06:32] LABS: Alanine Aminotransferase 147 U/L (4-50); Albumin Level 3.2 g/dL (3.5-5.1); Alkaline Phosphatase 32 U/L (38-126); Anion Gap 5 mmol/L (8-16); Aspartate Amino Transferase 56 U/L (17-59); Bilirubin,Total 0.7 mg/dL (0.2-1.3); Blood Urea Nitrogen 52 mg/dL (9-20); Calcium 8.3 mg/dL (8.4-10.2); Carbon Dioxide 31 mmol/L (22-30); Chloride 94 mmol/L (98-107); Estimated CRCL calculation 9 ml/min; Estimated Glomerular Filt Rate 5; Glucose 101 mg/dL (75-110); Phosphorus 6.4 mg/dL (2.5-4.5); Potassium 5.4 mmol/L (3.4-5.0); Sodium 130 mmol/L (137-145)
[2020-11-03] MEDS: amLODIPine BESYLATE 5 MG TABLET PO (10:04)
[2020-11-03] MEDS: SODIUM BICARBONATE TAB 650 MG TABLET 1300 MG PO (10:04)
[2020-11-03] MEDS: FAMOTIDINE 20 MG TABLET PO ×2 (10:05→20:22)
[2020-11-03] MEDS: CALCIUM ACETATE 667 MG TABLET PO ×3 (10:05→17:31)
--- NOTE | 2020-11-03 10:11 | P.PNNP_ITS ---
Progress Note: A&P Assessment and Plan (1) Acute kidney failure: Code(s): N17.9 - Acute kidney failure, unspecified Status: Acute Assessment and Plan: * SHARI * renal ultrasound shows no hydronephrosis. Increased echogenicity can be from SHARI. * urine electrolytes suggest pre-renal azotemia * follow K+, Ca++, and phosphorus closely (relatively stable) * C3 is mildly low. C4 is normal. Other serology is pending * Urine output is a little bit better but not much. * CK is down to 614 Yesterday. * Swelling is Doing well. No need for diuretics. * His creatinine is 11 now. * Will check another creatinine * If the creatinine is higher then we will do dialysis in the morning and set him up for a tunneled dialysis catheter, case management for dialysis as an outpatient, and probably discharge on Wednesday. * If the creatinine is lower than we can hold off on dialysis, repeat a creatinine on Wednesday, and if the creatinine is better again then pull the catheter out and discharge on Wednesday. * Above is assuming all other issues are okay. I talked with the patient and also with KRYSTLE Hampton. (2) Hyponatremia: Code(s): E87.1 - Hypo-osmolality and hyponatremia Status: Acute Assessment and Plan: * hyponatremia * Cortisol and TSH are okay. * S PE Is normal. * Chest x-ray shows no concerns. * No neurologic issues. * Most likely this is just due to renal failure plus water drinking. * No symptoms from this. * 5/ Na 116 then 119 after HD * 10/29 Na 117 * / Na 121 * 5/6 Na 124 * / Na 126 * / Na 127 * 5/ Na 130 * Continue fluid restriction (3) Rhabdomyolysis: Code(s): M62.82 - Rhabdomyolysis Status: Acute Assessment and Plan: * Etiology probably due to overexertion. * CK finally has come down below 16,000. This continues to improve. * CO2 is 27. will stop the bicarb. * Phosphorus is a bit high also. This is because of the rhabdo initially, but the renal failure is keeping the phosphorus high. He is getting PhosLo with meals. (4) Elevated LFTs: Code(s): R79.89 - Other specified abnormal findings of blood chemistry Status: Acute Assessment and Plan: * presumably related to #3 As muscles release AST and ALT as well. * is it possible his BP dropped as well leading to this and #1(?) * hepatitis studies Negative * AST/ALT continue to drop Subjective Date/time seen: 11/03/20 10:11 Interval history: Tashi is feeling better today. he is still making urine. 2300cc yesterday. Swelling is almost gone. Review of Systems Cardiovascular: Cardiovascular: Reports no additional cardiovascular complaints Respiratory: Respiratory: Reports no additional respiratory complaints Gastrointestinal: Gastrointestinal: Reports no additional gastrointestinal complaints Genitourinary: Genitourinary: Reports no additional male genitourinary complaints Exam Narrative: Exam Narrative: WDWN in NAD skin no rash He has some bruising on his lower extremities head ncat lungs clear cor reg no rub or gallop abd BS+ nontender and soft ext 1+ edema. Objective Data Vital Signs Vital Signs: Vital Signs - 24 hr 11/02/20 11:42 11/02/20 11:46 11/02/20 12:00 Temperature 36.8 C Pulse Rate 80 74 80 Respiratory Rate 18
--- NOTE | 2020-11-03 10:11 | PM.PNNEP ---
Progress Note: A&P Assessment and Plan (1) Acute kidney failure: Code(s): N17.9 - Acute kidney failure, unspecified Status: Acute Assessment and Plan: SHARI renal ultrasound shows no hydronephrosis. Increased echogenicity can be from SHARI. urine electrolytes suggest pre-renal azotemia follow K+, Ca++, and phosphorus closely (relatively stable) C3 is mildly low. C4 is normal. Other serology is pending Urine output is a little bit better but not much. CK is down to 614 Yesterday. Swelling is Doing well. No need for diuretics. His creatinine is 11 now. Will check another creatinine If the creatinine is higher then we will do dialysis in the morning and set him up for a tunneled dialysis catheter, case management for dialysis as an outpatient, and probably discharge on Wednesday. If the creatinine is lower than we can hold off on dialysis, repeat a creatinine on Wednesday, and if the creatinine is better again then pull the catheter out and discharge on Wednesday. Above is assuming all other issues are okay. I talked with the patient and also with KRYSTLE Hampton. (2) Hyponatremia: Code(s): E87.1 - Hypo-osmolality and hyponatremia Status: Acute Assessment and Plan: hyponatremia Cortisol and TSH are okay. S PE Is normal. Chest x-ray shows no concerns. No neurologic issues. Most likely this is just due to renal failure plus water drinking. No symptoms from this. 5/3 Na 116 then 119 after HD 5/4 Na 117 5/5 Na 121 5/6 Na 124 5/7 Na 126 5/8 Na 127 5/9 Na 130 Continue fluid restriction (3) Rhabdomyolysis: Code(s): M62.82 - Rhabdomyolysis Status: Acute Assessment and Plan: Etiology probably due to overexertion. CK finally has come down below 16,000. This continues to improve. CO2 is 27. will stop the bicarb. Phosphorus is a bit high also. This is because of the rhabdo initially, but the renal failure is keeping the phosphorus high. He is getting PhosLo with meals. (4) Elevated LFTs: Code(s): R79.89 - Other specified abnormal findings of blood chemistry Status: Acute Assessment and Plan: presumably related to #3 As muscles release AST and ALT as well. is it possible his BP dropped as well leading to this and #1(?) hepatitis studies Negative AST/ALT continue to drop Subjective Date/time seen: 11/03/20 10:11 Interval history: Tashi is feeling better today. he is still making urine. 2300cc yesterday. Swelling is almost gone. Review of Systems Cardiovascular: Cardiovascular: Reports no additional cardiovascular complaints Respiratory: Respiratory: Reports no additional respiratory complaints Gastrointestinal: Gastrointestinal: Reports no additional gastrointestinal complaints Genitourinary: Genitourinary: Reports no additional male genitourinary complaints Exam Narrative: Exam Narrative: WDWN in NAD skin no rash He has some bruising on his lower extremities head ncat lungs clear cor reg no rub or gallop abd BS+ nontender and soft ext 1+ edema. Objective Data Vital Signs Vital Signs: Vital Signs - 24 hr 11/02/20 11:42 11/02/20 11:46 11/02/20 12:00 Temperature 36.8 C Pulse Rate 80 74 80 Respiratory Rate 18 Blood Pressure 159/88 H 154/81 H Pulse Oximetry 11/02/20 12:12 11/02/20 12:30 11/02/20 12:48 Temperature Pulse Rate 77 73 74 Respiratory Rate Blood Pressure 162/90 H 157/84 H 159/90 H Pulse Oximetry 11/02/20 13:00 11/02/20 13:33 11/02/20 13:45 Temperature Pulse Rate 74 79 76 Respiratory Rate Blood Pressure 163/92 H 171/89 H 167/91 H Pulse Oximetry 11/02/20 14:00 11/02/20 14:18 11/02/20 14:33 Temperature 36.9 C Pulse Rate 79 80 81 Respiratory Rate 18 Blood Pressure 164/90 H 167/90 H 166/91 H Pulse Oximetry 11/02/20 16:00 11/02/20 20:00 11/02/20 22:00
--- NOTE | 2020-11-03 10:25 | PM.IMPN ---
Progress Note: A&P Assessment and Plan (1) Acute kidney failure: Qualifiers: Acute renal failure type: unspecified Qualified Code(s): N17.9 - Acute kidney failure, unspecified Code(s): N17.9 - Acute kidney failure, unspecified Status: Acute Assessment and Plan: Creatinine elevated at 7.5 at presentation with increase up to 15.3 at its max and has fluctuated, 11.8 today. Continue nephrology recommendations which are greatly appreciated. Discussed case with Dr. Sutton - plan depends on renal function tomorrow. If Cr worsens, likely will get PermCath placed and outpatient hemodialysis arranged. If Cr improves, may not need PermCath placed tomorrow he may not need further dialysis. Either way, plan is for tentative discharge Wednesday. Potassium mildly elevated, suspect related to kidney failure - monitor. Telemetry was resumed due to hyperkalemia - reviewed today without abnormalities. SHARI likely due to combination of hypovolemic episode, strenuous exercise and rhabdomyolysis Renal US showed mildly increased renal cortical echogenicity without evidence of hydronephrosis. (2) Rhabdomyolysis: Qualifiers: Encounter type: initial encounter Rhabdomyolysis type: traumatic Qualified Code(s): T79.6XXA - Traumatic ischemia of muscle, initial encounter Code(s): M62.82 - Rhabdomyolysis Status: Acute Assessment and Plan: Secondary to aggressive exertion and heat exposure beginning on 10/21/20. CK was >53649 for days on arrival. LFTs and CK trending down nice. (3) Elevated LFTs: Code(s): R79.89 - Other specified abnormal findings of blood chemistry Status: Chronic Assessment and Plan: Improved. Suspected due to rhabdo. Abdominal ultrasound showed normal liver and gallbladder. Hepatitis panel negative. (4) Hyponatremia: Code(s): E87.1 - Hypo-osmolality and hyponatremia Status: Acute Assessment and Plan: Improved. Continue to monitor. (5) Elevated blood pressure reading: Code(s): R03.0 - Elevated blood-pressure reading, without diagnosis of hypertension Status: Acute Assessment and Plan: BPs elevated, improved this AM. Monitor BP and adjust treatment as needed. Amlodipine initiated 10/30 with caution given his lower extremity edema. Additional Plan Echo reviewed, pt may need sleep study outpt. Subjective Date/time seen: 11/03/20 10:15 Interval history: Mr. Fink is a very pleasant 35yo M admitted with acute kidney failure, rhabdomyolysis, hyponatremia. Overall he is feeling improved. Slept well last night. Not in any pain. Offers no complaints at this time. Review of Systems Review of Systems: All systems reviewed & are unremarkable except as noted in HPI and below Exam Narrative: Exam Narrative: General: Male resting comfortably sitting up in bedside chair in no acute distress. Neuro: Awake and alert, answering questions appropriately. No focal neurological deficits noted. Speech is clear. HEENMT: Normocephalic, EOMI, sclerae anicteric, oral mucosa moist. Neck: supple, dialysis catheter right IJ. Respiratory: Clear to auscultation bilaterally, nonlabored breathing Cardio: Rate and rhythm regular. Abdomen: Soft, nontender, nondistended, bowel sounds present. Extremities: Bilateral lower extremity edema is improved. No pain to palpation. Skin: Faint, scattered ecchymoses on bilateral thighs, no rashes or lesions, warm and dry Objective Data Vital Signs Vital Signs: Last Vital Signs Temp 98.2 F 11/03/20 10:00 Pulse 83 11/03/20 12:00 Resp 16 11/03/20 10:00 BP 161/75 H 11/03/20 10:00 Pulse Ox 99 11/03/20 10:00 Inta
[2020-11-04] VITALS (29 sets, daily range): BP systolic 120–187; BP diastolic 72–97; PULSE 69–99; RESP 12–20; TEMP 36–37.6; O2SAT 94–100
[2020-11-04] MEDS: CENTRAL LINE FLUSH 10 ML IV PUSH (05:17)
[2020-11-04 05:27] LABS: Hematocrit 30.3 % (42.0-52.0); Hemoglobin 10.6 g/dL (14.0-18.0)
[2020-11-04 05:54] LABS: Albumin Level 3.4 g/dL (3.5-5.1); Anion Gap 6 mmol/L (8-16); Blood Urea Nitrogen 72 mg/dL (9-20); Calcium 8.5 mg/dL (8.4-10.2); Carbon Dioxide 30 mmol/L (22-30); Chloride 94 mmol/L (98-107); Estimated CRCL calculation 9 ml/min; Estimated Glomerular Filt Rate 4; Glucose 105 mg/dL (75-110); Magnesium 2.1 mg/dL (1.6-2.3); Phosphorus 7.3 mg/dL (2.5-4.5); Potassium 5.4 mmol/L (3.4-5.0); Sodium 130 mmol/L (137-145)
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
--- NOTE | 2020-11-04 07:20 | PC.NURSE ---
To OR per dona. KRIS Quintanilla gave report to KRIS Jalloh.
--- NOTE | 2020-11-04 07:42 | WPDHPUPDATE1 ---
History and Physical Update Update Date/Time: 11/04/20 07:42 History and Physical has been reviewed, including an updated exam of the patient. There are changes in the patient's condition. Pt. has improve his creatinine down to 14. Risks, benefits, and alternatives have been discussed and questions answered. Patient agrees to proceed with procedure.
[2020-11-04] MEDS: SODIUM CHLORIDE 0.9% IV 500 ML 30 ML IV CONT (08:00)
[2020-11-04] MEDS: ceFAZolin 3 GM/D5W 100 ML 100 ML IVPB (08:55)
[2020-11-04 09:11] LABS: SM Antibody <1.0; SM/RNP Antibody <1.0
[2020-11-04] MEDS: BUPIVACAINE/EPINEPHRINE 0.25% 50 ML VIAL 10 ML INFILTRATE (09:27)
[2020-11-04] MEDS: HEPARIN SODIUM, PORCINE 10,000 UNITS/10 ML VIAL 10000 UNITS IV PUSH (09:29)
[2020-11-04] MEDS: HEPARIN SODIUM 1,000 UNITS/ML VIAL 1000 UNITS IV PUSH (09:32)
--- NOTE | 2020-11-04 09:58 | PM.PROC ---
Procedure Note - Detailed Date of procedure: 11/04/20 Pre-op diagnosis: rhaddomyolysis, acute kidney failure, hyponatremia renal disease with acute kidney failure and recent rhabdomyolysis Post-op diagnosis: same Procedure performed: Placement of tunneled dialysis catheter (changed over guidewire). Description of procedure: The patient was placed in the supine position on the operating table and after induction of adequate mask general anesthesia by the nurse powder truck driver, we carefully rotated the patient's head and tilted it slightly to the left then prepping the side of the neck and chest with chlorhexidine on the right where the current temporary dialysis catheter was in situ.. After waiting 3 minutes I carefully draped the patient, and we performed a time-out confirming the patient's site of surgery. Because of his size, a 32 cm DuraFlow catheter was selected. I also obtained a long 3/0.35 cm guidewire which we could place through the distal port on the current temporary dialysis catheter. Using sterile technique we removed the cap on the central lumen of the current temporary dialysis catheter and I fed the soft 0.35 cm guidewire down into the central venous system. Using fluoroscopy to be sure the wire stayed in place and we then backed the old catheter off of the wire in out of the vein. We applied some pressure at the jugular vein site to stop any bleeding and took the old catheter off the wire. This was placed on the back table. I then changed outer sterile gloves and we began placing the dilators for the tunneled dialysis catheter. I 1st placed the 1st dilator and left that in place as we made the tunnel for the tunneled dialysis classic catheter. Following this, we measured the DuraFlow catheter such that the tip would be just into the right atrium or in the distal superior vena cava. A hemostat was placed on the drapes over the chest to guide where we would place this. Then the catheter was measured back to the entry site of the J- wire in a curvilinear fashion and down to his chest overlying the right clavicle. Local anesthetic was placed into 3 hernandez, the exit site and then 2 more on his lateral right neck such that a curvilinear path could be dissected through the subcutaneous tissues up to the insertion site on his right neck. Local anesthetic was infiltrated along the tract prior to tunneling. Incisions were made with a 15 blade knife at the exit site and the 2 counter incisions and then a 15 blade at the wire. The tunneling device was connected to the catheter and this was pulled through these incisions to make the subcutaneous tunnel a curvilinear course through the subcutaneous tissues to the insertion site. Then the wire was serially dilated with a 12, 14, and then a 16-Belgian dilator over the pull away sheath. We watched the 16-Belgian dilator and sheath go down into the central venous system with C-arm fluoroscopy and then removed the dilator wire after carefully covering the end of the insertion sheath. I lost some blood, as we then inserted the catheter down into the central venous system. The catheter was held in place with a DeBakey forceps and then we carefully tore away the sheath leaving the catheter within the subcutaneous tissues and down into the Rt. internal juglar vein. Following this, C-arm fluoroscopy was used to examine the full course of the catheter. The tip was just above the right atrium and there was a good curvilinear course of the catheter in the neck down to the exit site over the right clavicle. We were able to flush both ports with heparinized saline and a good dark blood return return from each. A final flush of more concentrated heparin was used to leave within the 2 lumens. Caps were applied to the ends of they catheter pigtail. Minimal bleeding was continuing, so we then went ahead and closed these incisions with some buried subcutaneous sutures of 4-0 Monocryl directly over the catheter at the insertion site
--- NOTE | 2020-11-04 10:45 | PC.NURSE ---
Returned from OR per stretcher. Report received from KRIS Wright.
[2020-11-04] MEDS: amLODIPine BESYLATE 5 MG TABLET PO (10:49)
[2020-11-04] MEDS: FAMOTIDINE 20 MG TABLET PO ×2 (10:49→20:58)
[2020-11-04] MEDS: CALCIUM ACETATE 667 MG TABLET PO ×2 (11:44→16:50)
--- NOTE | 2020-11-04 15:22 | PM.IMPN ---
Progress Note: A&P Assessment and Plan (1) Acute kidney failure: Qualifiers: Acute renal failure type: unspecified Qualified Code(s): N17.9 - Acute kidney failure, unspecified Code(s): N17.9 - Acute kidney failure, unspecified Status: Acute Assessment and Plan: Secondary to hypovolemic episode, strenuous exercise, and rhabdomyolysis. Creatinine elevated at 7.5 at presentation with increase up to 15.3 at its max. Has been fluctuant since dialysis with Cr 14.7 today Hemodialysis started on 10/28/20. Nephrology following and input appreciated. Tunneled dialysis catheter placed today per general surgery. Outpatient hemodialysis being arranged. Renal US showed mildly increased renal cortical echogenicity without evidence of hydronephrosis. (2) Rhabdomyolysis: Qualifiers: Rhabdomyolysis type: traumatic Encounter type: initial encounter Qualified Code(s): T79.6XXA - Traumatic ischemia of muscle, initial encounter Code(s): M62.82 - Rhabdomyolysis Status: Acute Assessment and Plan: Secondary to aggressive exertion and heat exposure beginning on 10/21/20. CK was >25851 for days on arrival. LFTs and CK trending down nicely. (3) Elevated LFTs: Code(s): R79.89 - Other specified abnormal findings of blood chemistry Status: Chronic Assessment and Plan: Improved. Suspected due to rhabdo. Abdominal ultrasound showed normal liver and gallbladder. Hepatitis panel negative. (4) Hyponatremia: Code(s): E87.1 - Hypo-osmolality and hyponatremia Status: Acute Assessment and Plan: Secondary to SHARI and excessive free water intake prior to admission. Levels have improved at appropriate rate. Sodium 130 today. (5) Elevated blood pressure reading: Code(s): R03.0 - Elevated blood-pressure reading, without diagnosis of hypertension Status: Acute Assessment and Plan: BPs elevated above target. Last BP 151/76 this AM. Monitor BP and adjust treatment as needed. Amlodipine initiated 10/30 with caution given his lower extremity edema. Continue. (6) Electrolyte abnormality: Code(s): E87.8 - Other disorders of electrolyte and fluid balance, not elsewhere classified Status: Acute Assessment and Plan: Secondary to SHARI Potassium mildly elevated. Remaining stable. Telemetry was resumed due to hyperkalemia - reviewed today without abnormalities. Phosphorus levels elevated. Continue Phoslo TID. Appreciate nephrology recommendations Subjective Date/time seen: 11/04/20 15:22 Interval history: Date of service: 11/05/2019 Tashi Fink is a previously healthy 35 year old male who is seen in follow up for acute kidney failure, hyponatremia, and rhabdomyolysis. He is feeling well today. He had a tunneled dialysis catheter placed this morning and tolerated the procedure well. He notes some tenderness along his neck at the catheter site. He denies nausea, vomiting, fever, chills. Appetite has been good. He denies any difficulty with urination. He notes some sediment in his urine. He denies dizziness, lightheadedness, or weakness. No shortness breath, cough, or chest pain. No additional concerns at this time. Review of Systems Review of Systems: All systems reviewed & are unremarkable except as noted in HPI and below Exam Narrative: Exam Narrative: Mr. Fink is a well-nourished, healthy-appearing 35-year-old male who is lying semi recumbent in bed. He appears comfortable and is in NARD. Neuro: awake, alert and oriented x4, speech clear, no focal neuro deficits noted HEENMT: normocephalic, atraumatic, EOMI, sclerae anicteric, moist oral mucosa, tongue midline, nares patent Neck: supple, no lymphadenopathy. Tunneled dialysis catheter palpable. Respiratory: Clear to auscultation bilaterally, nonlabored breathing Cardio: regular rate, regular rhythm with S1-S2 Abdomen: nondistended,
--- NOTE | 2020-11-04 16:51 | PC.NURSE ---
Patient to dialysis per bed.
--- NOTE | 2020-11-04 17:24 | P.PNNP_ITS ---
Progress Note: A&P Assessment and Plan (1) Acute kidney failure: Qualifiers: Acute renal failure type: unspecified Qualified Code(s): N17.9 - Acute kidney failure, unspecified Code(s): N17.9 - Acute kidney failure, unspecified Status: Acute Assessment and Plan: * presumably due to rhabdomyolysis * evaluation to date: - renal ultrasound shows no hydronephrosis; increased echogenici ty can be from SHARI. - urine electrolytes suggest pre-renal azotemia - CPK > 896419 on admission - C3 is mildly low, C4 is normal; SHAHAB/ANCA/Anderson Ab negative; rest of serologies pending * Urine output better but not getting good clearance * swelling is better as well (no need for diuretics) * will need outpatient dialysis and with close monitoring for hopeful renal recovery * HD today (2) Hyponatremia: Code(s): E87.1 - Hypo-osmolality and hyponatremia Status: Acute Assessment and Plan: * likely due to water drinking TRAY FILLER now complicated by renal failure * negative evaluationgto date (cortisol and TSH are okay, SPE normal, CXR without masses, no neurological issues_ * continue fluid restriction (3) Rhabdomyolysis: Qualifiers: Encounter type: initial encounter Rhabdomyolysis type: traumatic Qualified Code(s): T79.6XXA - Traumatic ischemia of muscle, initial encounter Code(s): M62.82 - Rhabdomyolysis Status: Acute Assessment and Plan: * etiology probably due to overexertion. * CK finally has come down to normal range * Phosphorus is a bit high - continue phoslo for now (4) Elevated LFTs: Code(s): R79.89 - Other specified abnormal findings of blood chemistry Status: Chronic Assessment and Plan: * presumably related to #3 as muscles release AST and ALT as well * hepatitis studies negative * AST/ALT continue improve Will continue to follow. Subjective Date/time seen: 11/04/20 17:24 Tolerating hemodialysis treatment at the time of my visit (seen on HD at 5:15PM); s/p tunneled HD catheter placement earlier today; resting comfortably at this time. Exam Narrative: Exam Narrative: General: WD/WN male in NAD Heart: normal S1 and S2; no rub Lungs: clear to auscultation Abdomen: soft, nontender, nondistended, positive bowel sounds Extremities: no cyanosis or clubbing; 1+ edema Skin: warm and dry Objective Data Vital Signs Vital Signs: Vital Signs Temp Pulse Resp BP Pulse Ox 11/04/20 16:00 99 11/04/20 13:00 36.8 C 80 18 157/84 H 99 11/04/20 12:00 36.8 C 76 18 149/81 H 99 11/04/20 11:30 36.8 C 78 18 98 11/04/20 11:15 36.8 C 78 18 148/84 H 99 11/04/20 10:35 70 12 136/76 98 11/04/20 10:20 69 14 136/79 97 11/04/20 10:05 74 20 129/76 97 11/04/20 09:53 36.4 C L 78 16 120/75 94 11/04/20 08:12 37.6 C H 90 20 151/76 H 96 11/04/20 08:00 85 11/04/20 06:00 36.9 C 95 18 137/73 96 11/04/20 04:00 85 11/04/20 02:00 36.9 C 87 20 148/72 H 98 11/04/20 00:00 89 11/03/20 22:00 37.0 C 89 21 H 160/74 H 100 11/03/20 20:00 83 11/03/20 18:00 37.0 C 83 16 171/86 H 100 Intake/Output Intake/Output: Intake & Output 11/01/20 11/02/20 11/03/20 0
--- NOTE | 2020-11-04 17:24 | PM.PNNEP ---
Progress Note: A&P Assessment and Plan (1) Acute kidney failure: Qualifiers: Acute renal failure type: unspecified Qualified Code(s): N17.9 - Acute kidney failure, unspecified Code(s): N17.9 - Acute kidney failure, unspecified Status: Acute Assessment and Plan: presumably due to rhabdomyolysis evaluation to date: - renal ultrasound shows no hydronephrosis; increased echogenicity can be from SHARI. - urine electrolytes suggest pre-renal azotemia - CPK > 805212 on admission - C3 is mildly low, C4 is normal; SHAHAB/ANCA/Anderson Ab negative; rest of serologies pending Urine output better but not getting good clearance swelling is better as well (no need for diuretics) will need outpatient dialysis and with close monitoring for hopeful renal recovery HD today (2) Hyponatremia: Code(s): E87.1 - Hypo-osmolality and hyponatremia Status: Acute Assessment and Plan: likely due to water drinking [employer] now complicated by renal failure negative evaluationgto date (cortisol and TSH are okay, SPE normal, CXR without masses, no neurological issues_ continue fluid restriction (3) Rhabdomyolysis: Qualifiers: Encounter type: initial encounter Rhabdomyolysis type: traumatic Qualified Code(s): T79.6XXA - Traumatic ischemia of muscle, initial encounter Code(s): M62.82 - Rhabdomyolysis Status: Acute Assessment and Plan: etiology probably due to overexertion. CK finally has come down to normal range Phosphorus is a bit high - continue phoslo for now (4) Elevated LFTs: Code(s): R79.89 - Other specified abnormal findings of blood chemistry Status: Chronic Assessment and Plan: presumably related to #3 as muscles release AST and ALT as well hepatitis studies negative AST/ALT continue improve Will continue to follow. Subjective Date/time seen: 11/04/20 17:24 Tolerating hemodialysis treatment at the time of my visit (seen on HD at 5:15PM); s/p tunneled HD catheter placement earlier today; resting comfortably at this time. Exam Narrative: Exam Narrative: General: WD/WN male in NAD Heart: normal S1 and S2; no rub Lungs: clear to auscultation Abdomen: soft, nontender, nondistended, positive bowel sounds Extremities: no cyanosis or clubbing; 1+ edema Skin: warm and dry Objective Data Vital Signs Vital Signs: Vital Signs Temp Pulse Resp BP Pulse Ox 11/04/20 16:00 99 11/04/20 13:00 36.8 C 80 18 157/84 H 99 11/04/20 12:00 36.8 C 76 18 149/81 H 99 11/04/20 11:30 36.8 C 78 18 98 11/04/20 11:15 36.8 C 78 18 148/84 H 99 11/04/20 10:35 70 12 136/76 98 11/04/20 10:20 69 14 136/79 97 11/04/20 10:05 74 20 129/76 97 11/04/20 09:53 36.4 C L 78 16 120/75 94 11/04/20 08:12 37.6 C H 90 20 151/76 H 96 11/04/20 08:00 85 11/04/20 06:00 36.9 C 95 18 137/73 96 11/04/20 04:00 85 11/04/20 02:00 36.9 C 87 20 148/72 H 98 11/04/20 00:00 89 11/03/20 22:00 37.0 C 89 21 H 160/74 H 100 11/03/20 20:00 83 11/03/20 18:00 37.0 C 83 16 171/86 H 100 Intake/Output Intake/Output: Intake & Output 11/01/20 11/02/20 11/03/20 11/04/20 23:59 23:59 23:59 23:59 Intake Total 1200 960 720 320 Output Total 475 2525 450 500 Balance 725 -1565 270 -180 Meds/Results Medications: Active Medications Generic Name Dose Route Start Last Admin Trade Name Freq PRN Reason Stop Dose Admin Acetaminophen 500 mg 11/04/20 10:35 Acetaminophen 500 Mg Tablet PO Q6H PRN Mild Pain (1-3) or Fever Hydrocodone Bitart/Acetaminophen 1 tab 11/04/20 10:35 Hydrocodone/Acetaminophen (*Crx) 5-325 Mg Tablet PO Q4H PRN Pain Rated 4-6 Hydrocodone Bitart/Acetaminophen 1 tab 11/04/20 10:35 Hydrocodone/Acetaminophen (*Crx) 7.5-325 Mg Tablet PO Q4H PRN Pain Rated 7-10
[2020-11-04] MEDS: SENNA/DOCUSATE SODIUM TABLET 2 TAB PO (20:58)
[2020-11-05 00:48] VITALS: BP 148/85; PULSE 91; RESP 18; TEMP 36.9; O2SAT 97
[2020-11-05 05:00] VITALS: BP 147/78; PULSE 86; RESP 20; TEMP 37.2; O2SAT 98
[2020-11-05 05:45] LABS: Hematocrit 30.4 % (42.0-52.0); Hemoglobin 10.3 g/dL (14.0-18.0); Mean Corpuscular HGB Conc 33.9 g/dl (32-36); Mean Corpuscular Hemoglobin 30.7 pg (26-34); Mean Corpuscular Volume 90.7 fl (80-100); Mean Platelet Volume 9.7 fl (7.4-10.4); Platelet Count Result 266 k/mm3 (150-375); Red Blood Count 3.35 M/mm3 (4.6-6.20); Red Cell Distribution Width 11.9 % (11.5-14.5); White Blood Count 10.4 K/mm3 (4.5-10.0)
[2020-11-05 05:57] LABS: Alanine Aminotransferase 76 U/L (4-50); Albumin Level 3.3 g/dL (3.5-5.1); Alkaline Phosphatase 34 U/L (38-126); Anion Gap 9 mmol/L (8-16); Aspartate Amino Transferase 30 U/L (17-59); Bilirubin,Total 0.3 mg/dL (0.2-1.3); Blood Urea Nitrogen 54 mg/dL (9-20); Calcium 8.7 mg/dL (8.4-10.2); Carbon Dioxide 26 mmol/L (22-30); Chloride 98 mmol/L (98-107); Creatine Kinase 126 U/L (55-170); Estimated CRCL calculation 11 ml/min; Estimated Glomerular Filt Rate 5; Glucose 107 mg/dL (75-110); Magnesium 2.1 mg/dL (1.6-2.3); Phosphorus 7.1 mg/dL (2.5-4.5); Potassium 5.1 mmol/L (3.4-5.0); Sodium 133 mmol/L (137-145)
--- NOTE | 2020-11-05 07:56 | P.PNAN_ITS ---
Anes - Prog Note Post-Op Date/Time: 11/05/20 07:56 Cardiovascular status: normal Respiratory status: normal Airway patency: baseline Mental status: baseline Post-Op hydration status: normal Vital Signs: Last Vital Signs Temp 37.2 C 11/05/20 05:00 Pulse 86 11/05/20 05:00 Resp 20 11/05/20 05:00 BP 147/78 H 11/05/20 05:00 Pulse Ox 98 11/05/20 05:00 Pain Score (VAS): 2 I/O: Intake & Output 11/04/20 11/04/20 11/05/20 15:59 23:59 07:59 Intake Total 120 240 Output Total 3500 400 Balance 120 -3500 -160 Laboratory Tests 11/05/20 05:16 11/05/20 05:16 10/27/20 11/05/20 11/05/20 05:11 05:16 05:16 WBC 10.4 H RBC 3.35 L Hgb 10.3 L Hct 30.4 L MCV 90.7 MCH 30.7 MCHC 33.9 RDW 11.9 Plt Count 266 MPV 9.7 Sodium 133 L Potassium 5.1 H Chloride 98 Carbon Dioxide 26 Anion Gap 9 BUN 54 H D Creatinine 11.30 H Estim Creat Clear Calc 11 Estimated GFR 5 L Glucose 107 Calcium 8.7 Phosphorus 7.1 H Magnesium 2.1 Total Bilirubin 0.3 AST 30 ALT 76 H Alkaline Phosphatase 34 L Total Creatine Kinase 126 Total Protein 6.0 L Albumin 3.3 L Sm (Anderson) Antibody <1.0 SM/[employer] IgG Antibody <1.0 Post-procedural complaints: none Patient Feedback: Patient satisfied with anesthetic care.
[2020-11-05] MEDS: amLODIPine BESYLATE 5 MG TABLET PO (08:29)
[2020-11-05] MEDS: CALCIUM ACETATE 667 MG TABLET PO (08:30)
[2020-11-05] MEDS: FAMOTIDINE 20 MG TABLET PO (08:30)
[2020-11-05 09:00] VITALS: BP 151/80; PULSE 84; RESP 18; TEMP 36.9; O2SAT 100
[2020-11-05 09:49] VITALS: O2SAT 98
--- NOTE | 2020-11-05 09:55 | P.PNNP_ITS ---
Progress Note: A&P Assessment and Plan (1) Acute kidney failure: Qualifiers: Acute renal failure type: unspecified Qualified Code(s): N17.9 - Acute kidney failure, unspecified Code(s): N17.9 - Acute kidney failure, unspecified Status: Acute Assessment and Plan: * presumably due to rhabdomyolysis * evaluation to date: - renal ultrasound shows no hydronephrosis; increased echogenici ty can be from SHARI. 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 * CK finally has come down to normal range * phosphorus is a bit high - continue phoslo for now (4) Elevated LFTs: Code(s): R79.89 - Other specified abnormal findings of blood chemistry Status: Chronic Assessment and Plan: * presumably related to #3 as muscles release AST and ALT as well * hepatitis studies negative * AST/ALT continue improve Will continue to follow - not opposed to discharge if outpatient dialysis arrangements have been finalized. Subjective Date/time seen: 11/05/20 09:55 Doing well this AM; stilll getting use to tunneled HD catheter in place; tolerated dialysis yesterday without issue or problems; no apparent distress voiced at this time. Exam Narrative: Exam Narrative: General: WD/WN male in NAD Heart: normal S1 and S2; no rub Lungs: clear to auscultation Abdomen: soft, nontender, nondistended, positive bowel sounds Extremities: no cyanosis or clubbing; 1+ edema Skin: warm and intact Objective Data Vital Signs Vital Signs: Vital Signs Temp Pulse Resp BP Pulse Ox 11/05/20 09:49 98 11/05/20 09:00 36.9 C 84 18 151/80 H 100 11/05/20 05:00 37.2 C 86 20 147/78 H 98 11/05/20 00:48 36.9 C 91 18 148/85 H 97 11/04/20 20:59 36.9 C 90 20 165/82 H 100 11/04/20 20:30 36.7 C 85 20 169/85 H 11/04/20 20:22 88 127/92 H 11/04/20 20:15 87 187/92 H 11/04/20 20:00 90 20 100 11/04/20 19:45 84 182/97 H 11/04/20 19:15 83 167/87 H 11/04/20 18:45 83 175/94 H 11/04/20 18:15 79 177/89 H 11/04/20 18:00 83 169/93 H 11/04/20 17:45 81 177/89 H 11/04/20 17:30 94 154/83 H 11/04/20 17:17 36.8 C 90 20 162/89 H 11/04/20 16:00 99 11/04/20 13:00 36.8 C
--- NOTE | 2020-11-05 09:55 | PM.PNNEP ---
Progress Note: A&P Assessment and Plan (1) Acute kidney failure: Qualifiers: Acute renal failure type: unspecified Qualified Code(s): N17.9 - Acute kidney failure, unspecified Code(s): N17.9 - Acute kidney failure, unspecified Status: Acute Assessment and Plan: presumably due to rhabdomyolysis evaluation to date: - renal ultrasound shows no hydronephrosis; increased echogenicity can be from SHARI. 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 CK finally has come down to normal range phosphorus is a bit high - continue phoslo for now (4) Elevated LFTs: Code(s): R79.89 - Other specified abnormal findings of blood chemistry Status: Chronic Assessment and Plan: presumably related to #3 as muscles release AST and ALT as well hepatitis studies negative AST/ALT continue improve Will continue to follow - not opposed to discharge if outpatient dialysis arrangements have been finalized. Subjective Date/time seen: 11/05/20 09:55 Doing well this AM; stilll getting use to tunneled HD catheter in place; tolerated dialysis yesterday without issue or problems; no apparent distress voiced at this time. Exam Narrative: Exam Narrative: General: WD/WN male in NAD Heart: normal S1 and S2; no rub Lungs: clear to auscultation Abdomen: soft, nontender, nondistended, positive bowel sounds Extremities: no cyanosis or clubbing; 1+ edema Skin: warm and intact Objective Data Vital Signs Vital Signs: Vital Signs Temp Pulse Resp BP Pulse Ox 11/05/20 09:49 98 11/05/20 09:00 36.9 C 84 18 151/80 H 100 11/05/20 05:00 37.2 C 86 20 147/78 H 98 11/05/20 00:48 36.9 C 91 18 148/85 H 97 11/04/20 20:59 36.9 C 90 20 165/82 H 100 11/04/20 20:30 36.7 C 85 20 169/85 H 11/04/20 20:22 88 127/92 H 11/04/20 20:15 87 187/92 H 11/04/20 20:00 90 20 100 11/04/20 19:45 84 182/97 H 11/04/20 19:15 83 167/87 H 11/04/20 18:45 83 175/94 H 11/04/20 18:15 79 177/89 H 11/04/20 18:00 83 169/93 H 11/04/20 17:45 81 177/89 H 11/04/20 17:30 94 154/83 H 11/04/20 17:17 36.8 C 90 20 162/89 H 11/04/20 16:00 99 11/04/20 13:00 36.8 C 80 18 157/84 H 99 11/04/20 12:00 36.8 C 76 18 149/81 H 99 11/04/20 11:30 36.8 C 78 18 98 11/04/20 11:15 36.8 C 78 18 148/84 H 99 11/04/20 10:35 70 12 136/76 98 11/04/20 10:20 69 14 136/79 97 11/04/20 10:05 74 20 129/76 97 Intake/Output Intake/Output: Intake & Output 11/02/20 11/03/20 11/04/20 11/05/20 23:59 23:59 23:59 23:59 Intake Total 960 720 320 360 Output Total 2525 450 4000 400 Balance -1565 270 -8210 -40 Meds/Results Medications: Active Medications Generic Name Dose Route Start Last Admin Trade Name Kalina PRN Reason Stop Dose Admin Acetaminophen 500 mg
--- NOTE | 2020-11-05 12:33 | PM.DS ---
DS: Admitting Diagnosis Admitting Diagnosis Admitting Diagnosis: Acute kidney failure, rhabdomyolysis DS: Discharge Diagnosis Discharge Diagnosis (1) Acute kidney failure: Qualifiers: Acute renal failure type: unspecified Qualified Code(s): N17.9 - Acute kidney failure, unspecified Code(s): N17.9 - Acute kidney failure, unspecified Status: Acute Assessment and Plan: Secondary to hypovolemic episode, strenuous exercise, and rhabdomyolysis. Creatinine elevated at 7.5 at presentation with increase up to 15.3 at its max. Renal ultrasound showed mildly increased renal cortical echogenicity without evidence of hydronephrosis. He was seen in consultation by nephrology and hemodialysis was initiated on 10/28/2020. Creatinine was fluctuant since dialysis, ranging from 11-14. Urine output improved. Tunnel dialysis catheter placed on 11/04/2020 and outpatient dialysis was arranged for Wednesday, Wednesday, Wednesday. He will continue to follow-up with nephrology. (2) Rhabdomyolysis: Qualifiers: Rhabdomyolysis type: traumatic Encounter type: initial encounter Qualified Code(s): T79.6XXA - Traumatic ischemia of muscle, initial encounter Code(s): M62.82 - Rhabdomyolysis Status: Acute Assessment and Plan: Secondary to aggressive exertion and heat exposure beginning on 10/21/20. CK was >02587 for days on arrival and eventually normalized. (3) Elevated LFTs: Code(s): R79.89 - Other specified abnormal findings of blood chemistry Status: Chronic Assessment and Plan: Suspected due to rhabdo. Abdominal ultrasound showed normal liver and gallbladder. Hepatitis panel negative. LFTs trended down nicely with improvement of rhabdomyolysis. (4) Hyponatremia: Code(s): E87.1 - Hypo-osmolality and hyponatremia Status: Acute Assessment and Plan: Secondary to SHARI and excessive free water intake prior to admission. Levels monitor closely to ensure correction at appropriate rate. Sodium was 133 at discharge. (5) Elevated blood pressure reading: Code(s): R03.0 - Elevated blood-pressure reading, without diagnosis of hypertension Status: Acute Assessment and Plan: BPs elevated above target. This may be related to volume overload as initial BPs were stable. Amlodipine was initiated on 10/30 with caution given his lower extremity edema. Blood pressure is improved with this. Outpatient follow-up with PCP recommended for further blood pressure monitoring. (6) Electrolyte abnormality: Code(s): E87.8 - Other disorders of electrolyte and fluid balance, not elsewhere classified Status: Acute Assessment and Plan: Secondary to SHARI. Potassium mildly elevated but remaining stable. Telemetry reviewed without abnormalities. Phosphorus levels elevated and Phoslo TID initiated. Continue while on dialysis. Further lab work will be obtained at next dialysis appointment. DS: Summary Hospital Course Reason for hospitalization: Acute kidney injury Hospital Course: Date of admission: 10/24/2020 Date of discharge: 11/05/2020 Tashi Fink is a previously healthy 35 year old male who presented to the emergency department on 10/24/2020 with concerns for dehydration. 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 He noted decreased urine output and muscle soreness. He had been drinking an excessive amount of water at home to try to combat dehydration. Upon presentation to the emergency department, his blood pressure was elevated to 169/89 with additional vital signs stable, he had mild leukocytosis and anemia, sodium was 117, potassium 4.1, chloride 82, CO2 24, BUN 57, creatinine 7.5, CK >73740, UA with 3+ blood, and venous Doppler negative for DVT. Admitted to the hospitalist service for further evaluation management and seen in consultation by brenna
[2020-11-05 18:07] LABS: Hepatitis B Core Ab Total Nonreactive (Nonreactive)
[2020-11-10 09:05] LABS: Scleroderma 70 Antibody <1.0
[2020-11-10 09:05] LABS: SS-A <1.0; SS-B <1.0
[2020-11-10 13:14] LABS: Anti Glomerular Basement Memb <1.0 AI (<1.0)
[2020-11-11 05:55] LABS: JO 1 Antibody <1.0
== END 2020-11-05 13:00 | disposition home or self-care (01) | DRG 674 ==
LOC: ANHED 18:26 → ANH2MED 18:36
PROVIDERS: Internal Medicine Nephrology; Physician Assistant; Surgery; Admitting Provider Internal Medicine; Emergency Provider Emergency Medicine; PCP Family Medicine; Visit Provider Family Medicine
PROC: 0JH63XZ Insertion of Tunneled Vascular Access Device into Chest Subcutaneous Tissue and Fascia, Percutaneous Approach (ICD-10-PCS; CPT 36908; principal; 2020-11-04 08:30)
DX: N17.9 Acute kidney failure, unspecified (principal); E87.1 Hypo-osmolality and hyponatremia; M62.82 Rhabdomyolysis; R79.89 Other specified abnormal findings of blood chemistry; R03.0 Elevated blood-pressure reading, without diagnosis of hypertension; E87.8 Other disorders of electrolyte and fluid balance, not elsewhere classified; E86.0 Dehydration; Z99.2 Dependence on renal dialysis
CPT/HCPCS: 36415; 71045; 76705; 76775; 77001; 80048; 80053; 80069; 80074; 80076; 81001; 82248; 82330; 82436; 82533; 82550; 82570; 83520; 83735; 83874; 83883; 83935; 84100; 84133; 84155; 84156; 84165; 84166; 84295; 84300; 84443; 85014; 85018; 85025; 85027; 85610; 85730; 85999; 86021; 86038; 86060; 86160; 86235; 86704; 86706; 86850; 86900; 86901; 87086; 87088; 87340; 93306; 93970; 96360; 99285; A9270; C1750; C1769; G0257; J0610; J0690; J1644; J1940; J2704; J3010; J7030; J7040; J7120; J7131

== ENCOUNTER 2021-09-14 10:10 | Emergency (ER) | payer OTHER, SELFPAY ==
[2021-09-14 10:23] VITALS: BP 129/69; PULSE 86; RESP 18; TEMP 37; O2SAT 99
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
== END 2021-09-14 10:59 | disposition home or self-care (01) ==
PROVIDERS: Emergency Provider Nurse Practitioner; PCP Family Medicine
DX: J01.90 Acute sinusitis, unspecified (principal)
CPT/HCPCS: 99213; G0463

== ENCOUNTER 2025-01-22 08:14 | Emergency (ER) | payer OTHER, SELFPAY ==
--- OUTSIDE RECORDS SUMMARY | 2025-01-22 08:19 | XMS_ITS | Encounter Summary ---
Author Organization [facility] Address [address] [address] Care Team Providers Care Supervisor Marble Name Role Phone Unavailable Primary Care Provider Unavailabl e Encounter Details Date Type Department Care Team (Late st Contact Info) Description 01/22/2023 Lab Requisition [facility] - DermPath Lab [address] [place] [id number] Marilee Rueda MD [address] [place] [address] [place] [address] Neoplasm of uncertain behavior of skin Social History Tobacco Use Types Packs/Day Years Used Date Smoking Tobacco: Never Alcohol Use Standard Drinks/Week Comments No 0 (1 standard drink = 0.6 oz pur e alcohol) Sex and Gender Information Value Date Recorded Sex Assigned at Not on file 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 Gender Identity Not on file Sexual Orientation Not on file documented as of this encounter Plan of Treatment Not on file documented as of this encounter Procedures Procedure Name Priority Date/Time Associated Diagnosis Comments DERMATOPATHOLOGY Routine 01/22/2023 12:0 0 AM CDT Neoplasm of uncertain behavior of skin documented in this encounter Results * DERMATOPATHOLOGY (01/22/2023 12:00 AM CDT) Case Report Dermatopathology Report Case: [id number] Authorizing Provider: Marilee Rueda MD Collected: 01/22/2023 12:00 AM Ordering Location: [facility] DermPath Lab Received: 01/25/2023 01:13 PM Pathologist: Komal Anderson MD Specimen: Skin, left mid upper back 1:35 PM CDT DERMATOPATHOLOGY LABORATORY Final Diagnosis Specimen A. 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 The specimen consists of a shave biopsy measuring 9x7x2 mm. Jar 0. 1:35 PM CDT DERMATOPATHOLOGY LABORATORY Microscopic Description Specimen A. SKIN, left mid upper back: This is a compound nevus. There is a lentiginous proliferation of melanocytes between nevus nests of cells along the dermal-epidermal junction. There is underlying lamellar fibroplasia of the papillary dermis. The intradermal component is bland in appearance and matures with depth. (Compound João's Nevus) Some melanocytes are splayed between collagen bundles and are localized around adnexal structures, consistent with congenital features. 1:35 PM CDT DERMATOPATHOLOGY LABORATORY Disclaimer An external and internal positive and negative controls are appropriate for the histochemical, immunohistochemical and immunofluorescence stain(s) in this case (if any), except where stated explicitly. The performance characteristics of the stain(s) cited in this report were developed and its performance characteristic determined by the Dermatopathology Laboratory at [facility], directed by Dr. Agnes Brown. These tests need not be, and therefore are not, approved by the [place] Food and Drug Administration. The tests are used for clinical purposes. Billing Codes Specimen Charges Stain Charges 05381 1 1:35 PM CDT DERMATOPATHOLOGY LABORATORY Embedded Images 1:35 PM CDT DERMATOPATHOLOGY LABORATORY Pathology/Cytolog y TISSUE SPECIMEN FROM SKIN / Unknown 01/22/2023 01/25/2023 1:13 PM CDT Marilee Rueda MD LAB - PATHOLOGY/CYTOLOGY ORDERAB LES Final Result DERMATOPATHOLOGY LABORATORY [facility] - Department of Dermatology [facility], [address]rd Floor [address] [phone] documented in this encounter Visit Diagnoses Diagnosis Neoplasm of uncertain behavior of skin documented in this encounter
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
[2025-01-22 08:24] VITALS: BP 143/88; PULSE 85; RESP 16; TEMP 36.2; O2SAT 98
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
== END 2025-01-22 08:45 | disposition home or self-care (01) ==
PROVIDERS: Emergency Provider Nurse Practitioner; PCP Family Medicine
DX: H00.015 Hordeolum externum left lower eyelid (principal)
CPT/HCPCS: 99213; G0463

== ENCOUNTER 2025-03-29 11:56 | Emergency (ER) | payer OTHER, SELFPAY ==
--- NOTE | ~2025-03-29 | XR_ITS ---
EXAMINATION: XR knee LT min 4V DATE: 03/29/2025 12:30 INDICATION: Left knee popped and lateral sided pain post fall TECHNIQUE: Anteroposterior, 2 oblique and crosstable lateral views of the left knee were obtained COMPARISON: None. FINDINGS: Alignment is normal. No fracture. Joint spaces appear normal on nonweightbearing imaging. Small left knee joint effusion without layering lipohemarthrosis. Soft tissues are otherwise unremarkable. IMPRESSION: 1. Small left knee joint effusion. No acute osseous abnormality. Reviewed, dictated and finalized at location A.
[2025-03-29 12:06] VITALS: BP 134/72; PULSE 73; RESP 18; TEMP 37; O2SAT 100
--- OUTSIDE RECORDS SUMMARY | 2025-03-29 12:06 | XMS_ITS | Clinical Summary ---
Author Organization [facility] [address] Address [address] [place] [address] Care Team Providers Care Hosiery Pairer Name Role Phone Unavailable Primary Care Provider Unavailabl e Source Comments [facility],non-owned Affiliates and Associated Physician Practices is amultiple site organization consisting of ambulatory clinics and hospital sitesin [place], [place], [place] and [place]. This disclosure is being madepursuant to the Care Everywhere program and may not contain all information available regarding this patient. 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
--- OUTSIDE RECORDS SUMMARY | 2025-03-29 12:06 | XMS_ITS | Encounter Summary ---
Author Organization [facility] Address [address] [place] [address] Care Team Providers Care Quality Eng Name Role Phone Unavailable Primary Care Provider Unavailabl e Encounter Details Date Type Department Care Team (Late st Contact Info) Description 01/22/2023 Lab Requisition [facility] - DermPath Lab [address] [place] [id number] Marilee Rueda MD [address] [place] [address] [place] [address] Neoplasm of uncertain behavior of skin Social History Tobacco Use Types Packs/Day Years Used Date Smoking Tobacco: Never Alcohol Use Standard Drinks/Week Comments No 0 (1 standard drink = 0.6 oz pur e alcohol) Sex and Gender Information Value Date Recorded Sex Assigned at Not on file 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 Gender Identity Not on file Sexual Orientation Not on file documented as of this encounter Plan of Treatment Not on file documented as of this encounter Procedures Procedure Name Priority Date/Time Associated Diagnosis Comments DERMATOPATHOLOGY Routine 01/22/2023 12:0 0 AM CDT Neoplasm of uncertain behavior of skin documented in this encounter Results * DERMATOPATHOLOGY (01/22/2023 12:00 AM CDT) Case Report Dermatopathology Report Case: [id number] Authorizing Provider: Marilee Rueda MD Collected: 01/22/2023 12:00 AM Ordering Location: [facility] DermPath Lab Received: 01/25/2023 01:13 PM Pathologist: [...] characteristic determined by the Dermatopathology Laboratory at [facility], directed by Dr. Agnes Brown. These tests need not be, and therefore are not, approved by the [place] Food and Drug Administration. The tests are used for clinical purposes. Billing Codes Specimen Charges Stain Charges 93023 1 1:35 PM CDT DERMATOPATHOLOGY LABORATORY Embedded Images 1:35 PM CDT DERMATOPATHOLOGY LABORATORY Pathology/Cytolog y TISSUE SPECIMEN FROM SKIN / Unknown 01/22/2023 01/25/2023 1:13 PM CDT Marilee Rueda MD LAB - PATHOLOGY/CYTOLOGY ORDERAB LES Final Result DERMATOPATHOLOGY LABORATORY [facility] - Department of Dermatology [facility] Medicine [facility] [facility], [address] Floor [address] [phone] documented in this encounter Visit Diagnoses Diagnosis Neoplasm of uncertain behavior of skin documented in this encounter
--- OUTSIDE RECORDS SUMMARY | 2025-03-29 12:06 | XMS_ITS ---
Author Organization [facility] ([facility]) Address [address] [place] [id number] Care Team Providers Care Putty Glazer Name Role Phone Unavailable Unavailable Unavailable Allergies, Adverse Reactions, Alerts This patient has no known allergies or adverse reactions. Problems This patient has no known problems.
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
== END 2025-03-29 12:58 | disposition home or self-care (01) ==
PROVIDERS: Emergency Provider Nurse Practitioner; PCP Family Medicine
DX: S89.92XA Unspecified injury of left lower leg, initial encounter (principal); X50.1XXA Overexertion from prolonged static or awkward postures, initial encounter; Y99.0 Civilian activity done for income or pay
CPT/HCPCS: 73564; 99213; G0463